=== PATIENT | male | born 1960 | race African-American/Black ===

== ENCOUNTER 2018-09-08 20:46 | Emergency (ER) | payer SELFPAY ==
--- NOTE | 2018-09-08 21:02 | EDM.PDOC ---
ED HPI GENERAL MEDICAL PROBLEM - General Chief Complaint: Respiratory Problem Stated Complaint: PT HAS ASTHMA Time Seen by Provider: 09/08/18 20:49 - History of Present Illness INITIAL COMMENTS - FREE TEXT/NARRATIVE: HISTORY AND PHYSICAL: History of present illness: Patient's a 57-year-old black male history of asthma presents with concern of medication refill he has an albuterol nebulizer that he uses at home and he does have a Pro Air HFA which he has dangerously low on. He denies any active breathing difficulty or other concern. Review of systems: As per history of present illness and below otherwise all systems reviewed and negative. Past medical history: As per history of present illness and as reviewed below otherwise noncontributory. Surgical history: As per history of present illness and as reviewed below otherwise noncontributory. Social history: No reported history of drug or alcohol abuse. Family history: As per history of present illness and as reviewed below otherwise noncontributory. Physical exam: HEENT: Atraumatic, normocephalic, pupils reactive, negative for conjunctival pallor or scleral icterus, mucous membranes moist, throat clear, neck supple, nontender, trachea midline. Lungs: Clear to auscultation, breath sounds equal bilaterally, chest nontender. Heart: S1S2, regular, negative for clicks, rubs, or JVD. Abdomen: Soft, nondistended, nontender. Negative for masses or hepatosplenomegaly. Negative for costovertebral tenderness. Pelvis: Stable nontender. Genitourinary: Deferred. Rectal: Deferred. Extremities: Atraumatic, negative for cords or calf pain. Neurovascular unremarkable. Neuro: Awake, alert, oriented. Cranial nerves II through XII unremarkable. Cerebellum unremarkable. Motor and sensory unremarkable throughout. Exam nonfocal. Diagnostics: None Therapeutics: None Impression: #1 medication refill #2 history of asthma Definitive disposition and diagnosis as appropriate pending reevaluation and review of above. - Related Data Allergies Allergy/AdvReac Type Severity Reaction Status Date / Time No Known Allergies Allergy Verified 09/08/18 20:59 Home Meds: Home Meds Albuterol Sulfate [Proair Hfa] 8.5 gm IH Q4HR PRN #1 hfa.[email or web address] 05/29/18 [Rx] Albuterol Sulfate 2.5 mg INH Q4H PRN 08/18/18 [History] Albuterol Sulfate [Proair Hfa] 8.5 gm IH QID PRN #1 hfa.[email or web address] 08/18/18 [Rx] Ipratropium/Albuterol Sulfate [Iprat-Albut 0.5-3(2.5) MG/3 ML] 3 ml IH QID PRN # 1 box 08/18/18 [Rx] Past Medical History Respiratory History: Reports: Asthma, COPD - Infectious Disease History Infectious Disease History: Reports: None - Past Surgical History Respiratory Surgical History: Reports: None Social & Family History - Family History Family Medical History: Noncontributory ED ROS GENERAL - Review of Systems Review Of Systems: ROS reveals no pertinent complaints other than HPI. ED EXAM, GENERAL - Physical Exam Exam: See Below (See dictation) Course - Vital Signs Last Recorded V/S: Last Vital Signs Temp 36.6 C 09/08/18 20:55 Pulse 94 09/08/18 20:55 Resp 18 09/08/18 20:55 BP 142/92 H 09/08/18 20:55 Pulse Ox 96 09/08/18 20:55 Departure - Departure Time of Disposition: 21:01 Disposition: Home, Self-Care 01 Condition: Good Clinical Impression: Medication refill, History of asthma - Discharge Information Referrals: PCP,None [Primary Care Provider] - Additional Instructions: The following information is given to patients seen in the emergency department who are being discharged to home. This information is to outline your options for follow-up care. We provide all patients seen in our emergency department with a follow-up referral. The need for follow-up, as well as the timing and circumstances, are variable depending upon the specifics of your emergency department visit. If you don't have a primary care physician on staff, we will provide you with a referral. We always advise you to contact your personal physician following an emergency department visit to inform them of the circumstance of the visit and for follow-up with them and/or the need for any referrals to a consulting specialist. The emergency department will also refer you to a specialist when appropriate. This referral assures that you have the opportunity for followup care with a specialist. All of these measure are taken in an effort to provide you with optimal care, which includes your followup. Under all circumstances we always encourage you to contact your private physician who remains a resource for coordinating your care. When calling for followup care, please make the office aware that this follow-up is from your recent emergency room visit. If for any reason you are refused follow-up, please contact the [facility] emergency department at and asked to speak to the emergency department charge nurse. Medications as prescribed follow-up private medical doctor as discussed and return as needed as discussed
== END 2018-09-08 21:10 | disposition home or self-care (01) ==
LOC: MW.ED 20:46
DX: Z76.0 Encounter for issue of repeat prescription (principal); J44.9 Chronic obstructive pulmonary disease, unspecified; F17.210 Nicotine dependence, cigarettes, uncomplicated; Z79.899 Other long term (current) drug therapy
CPT/HCPCS: 99281

== ENCOUNTER 2018-09-12 23:28 | Emergency (ER) | payer SELFPAY ==
--- NOTE | 2018-09-12 23:35 | EDM.PDOC ---
ED HPI GENERAL MEDICAL PROBLEM - General Stated Complaint: ASTHMA Time Seen by Provider: 09/12/18 23:33 - History of Present Illness INITIAL COMMENTS - FREE TEXT/NARRATIVE: HISTORY AND PHYSICAL: History of present illness: Patient's 57-year-old black male history of asthma who presents with concern of medication refill he denies any other concern he was seen recently for same and states he lost his inhaler. Review of systems: As per history of present illness and below otherwise all systems reviewed and negative. Past medical history: As per history of present illness and as reviewed below otherwise noncontributory. Surgical history: As per history of present illness and as reviewed below otherwise noncontributory. Social history: No reported history of drug or alcohol abuse. Family history: As per history of present illness and as reviewed below otherwise noncontributory. Physical exam: HEENT: Atraumatic, normocephalic, pupils reactive, negative for conjunctival pallor or scleral icterus, mucous membranes moist, throat clear, neck supple, nontender, trachea midline. Lungs: Clear to auscultation, breath sounds equal bilaterally, chest nontender. Heart: S1S2, regular, negative for clicks, rubs, or JVD. Abdomen: Soft, nondistended, nontender. Negative for masses or hepatosplenomegaly. Negative for costovertebral tenderness. Pelvis: Stable nontender. Genitourinary: Deferred. Rectal: Deferred. Extremities: Atraumatic, negative for cords or calf pain. Neurovascular unremarkable. Neuro: Awake, alert, oriented. Cranial nerves II through XII unremarkable. Cerebellum unremarkable. Motor and sensory unremarkable throughout. Exam nonfocal. Diagnostics: None Therapeutics: None Impression: #1 medication refill #2 history of asthma Definitive disposition and diagnosis as appropriate pending reevaluation and review of above. - Related Data Allergies Allergy/AdvReac Type Severity Reaction Status Date / Time No Known Allergies Allergy Verified 09/08/18 20:59 Home Meds: Home Meds Albuterol Sulfate [Proair Hfa] 8.5 gm IH QID PRN #1 hfa.aer.ad 08/18/18 [Rx] Past Medical History HEENT History: Reports: None Cardiovascular History: Reports: None Respiratory History: Reports: Asthma, COPD Gastrointestinal History: Reports: None Genitourinary History: Reports: None Musculoskeletal History: Reports: None Neurological History: Reports: None Psychiatric History: Reports: None Endocrine/Metabolic History: Reports: None Hematologic History: Reports: None Immunologic History: Reports: None Oncologic (Cancer) History: Reports: None Dermatologic History: Reports: None - Infectious Disease History Infectious Disease History: Reports: None - Past Surgical History Head Surgeries/Procedures: Reports: None Respiratory Surgical History: Reports: None Social & Family History - Family History Family Medical History: Noncontributory - Caffeine Use Caffeine Use: Reports: Tea ED ROS GENERAL - Review of Systems Review Of Systems: ROS reveals no pertinent complaints other than HPI. ED EXAM, GENERAL - Physical Exam Exam: See Below (See dictation) Departure - Departure Time of Disposition: 23:34 Disposition: Home, Self-Care 01 Condition: Good Clinical Impression: Medication refill - Discharge Information Referrals: PCP,None [Primary Care Provider] - Additional Instructions: The following information is given to patients seen in the emergency department who are being discharged to home. This information is to outline your options for follow-up care. We provide all patients seen in our emergency department with a follow-up referral. The need for follow-up, as well as the timing and circumstances, are variable depending upon the specifics of your emergency department visit. If you don't have a primary care physician on staff, we will provide you with a referral. We always advise you to contact your personal physician following an emergency department visit to inform them of the circumstance of the visit and for follow-up with them and/or the need for any referrals to a consulting specialist. The emergency department will also refer you to a specialist when appropriate. This referral assures that you have the opportunity for followup care with a specialist. All of these measure are taken in an effort to provide you with optimal care, which includes your followup. Under all circumstances we always encourage you to contact your private physician who remains a resource for coordinating your care. When calling for followup care, please make the office aware that this follow-up is from your recent emergency room visit. If for any reason you are refused follow-up, please contact the [facility] emergency department at and asked to speak to the emergency department charge nurse. [facility] [address] [place] [id number] Albuterol as prescribed follow-up private medical doctor in our clinic above as needed as discussed return as needed as discussed
== END 2018-09-12 23:43 | disposition home or self-care (01) ==
LOC: MW.ED 23:28
DX: Z76.0 Encounter for issue of repeat prescription (principal); F17.210 Nicotine dependence, cigarettes, uncomplicated; J44.9 Chronic obstructive pulmonary disease, unspecified
CPT/HCPCS: 99281

== ENCOUNTER 2018-10-23 20:19 | Emergency (ER) | payer SELFPAY ==
[2018-10-23] MEDS ORDERED: methylPREDNISolone Sodium Succinate 125 MG/2 ML SDV IM ONE (20:52)
[2018-10-23] MEDS ORDERED: Albuterol/Ipratropium 3.0-0.5 MG/3 ML Neb Soln NEB ONE (20:52)
--- NOTE | 2018-10-23 20:52 | EDM.PDOC ---
ED HPI GENERAL MEDICAL PROBLEM - General Chief Complaint: Respiratory Problem Stated Complaint: HAD HARD TIME BREATHING NEEDING NEW SCRIPT Time Seen by Provider: 10/23/18 20:52 Source of Information: Reports: Patient - History of Present Illness INITIAL COMMENTS - FREE TEXT/NARRATIVE: HISTORY AND PHYSICAL: History of present illness: [Patient presents with history of [place] weather he has used his MDI inhaler up a complains of shortness of breath is in no distress able speak in full sentences it did offer EKG chest x-ray influenza swab etc. and Solu-Medrol he refuses these as well as refuses a neb treatment he simply wants medications for at home Has no fever nausea vomiting chills sweats ] Review of systems: As per history of present illness and below otherwise all systems reviewed and negative. Past medical history: As per history of present illness and as reviewed below otherwise noncontributory. Surgical history: As per history of present illness and as reviewed below otherwise noncontributory. Social history: No reported history of drug or alcohol abuse. Family history: As per history of present illness and as reviewed below otherwise noncontributory. Physical exam: HEENT: Atraumatic, normocephalic, pupils reactive, negative for conjunctival pallor or scleral icterus, mucous membranes moist, throat clear, neck supple, nontender, trachea midline. Lungs: Clear to auscultation, breath sounds equal bilaterally, chest nontender. Heart: S1S2, regular, negative for clicks, rubs, or JVD. Abdomen: Soft, nondistended, nontender. Negative for masses or hepatosplenomegaly. Negative for costovertebral tenderness. Pelvis: Stable nontender. Genitourinary: Deferred. Rectal: Deferred. Extremities: Atraumatic, negative for cords or calf pain. Neurovascular unremarkable. Neuro: Awake, alert, oriented. Cranial nerves II through XII unremarkable. Cerebellum unremarkable. Motor and sensory unremarkable throughout. Exam nonfocal. Diagnostics: [EKG Chest 1 view Influenza ] Therapeutics: [DuoNeb Solu-Medrol 125 mg IM Above refused by patient Albuterol nebulizer treatments and inhaler per [facility] med[facility] ] Impression: asthma exacerbation ] Definitive disposition and diagnosis as appropriate pending reevaluation and review of above. - Related Data Allergies Allergy/AdvReac Type Severity Reaction Status Date / Time No Known Allergies Allergy Verified 10/23/18 20:31 Home Meds: Home Meds Albuterol Sulfate [Proair Hfa] 8.5 gm IH QID PRN #1 hfa.aer.ad 08/18/18 [Rx] Past Medical History HEENT History: Reports: None Cardiovascular History: Reports: None Respiratory History: Reports: Asthma, COPD Gastrointestinal History: Reports: None Genitourinary History: Reports: None Musculoskeletal History: Reports: None Neurological History: Reports: None Psychiatric History: Reports: None Endocrine/Metabolic History: Reports: None Hematologic History: Reports: None Immunologic History: Reports: None Oncologic (Cancer) History: Reports: None Dermatologic History: Reports: None - Infectious Disease History Infectious Disease History: Reports: None - Past Surgical History Head Surgeries/Procedures: Reports: None Respiratory Surgical History: Reports: None Social & Family History - Family History Family Medical History: Noncontributory - Tobacco Use Smoking Status *Q: Current Every Day Smoker Years of Tobacco use: 20 Packs/Tins Daily: 0.5 - Caffeine Use Caffeine Use: Reports: None - Recreational Drug Use Recreational Drug Use: No ED ROS GENERAL - Review of Systems Review Of Systems: See Below ED EXAM, GENERAL - Physical Exam Exam: See Below Course - Vital Signs Last Recorded V/S: Last Vital Signs Temp 98.0 F 10/23/18 20:33 Pulse 95 10/23/18 20:33 Resp 16 10/23/18 20:33 BP 125/83 10/23/18 20:33 Pulse Ox 95 10/23/18 20:33 - Orders/Labs/Meds Orders: Active Orders 24 hr Category Date Time Status EKG Documentation Completion [RC] STAT Care 10/23/18 20:52 Inactive RT Aerosol Therapy [RC] ASDIRECTED Care 10/23/18 20:52 Active Chest 1V Frontal [CR] Stat Exams 10/23/18 20:52 Stop Req INFLUENZA A+B AG SCREEN [RM] Stat Lab 10/23/18 20:52 Stop Req Meds: Medications Discontinued Medications Generic Name Dose Route Start Last Admin Trade Name Freq PRN Reason Stop Dose Admin Albuterol/Ipratropium 3 ml 10/23/18 20:52 Duoneb 3.0-0.5 Mg/3 Ml NEB 10/23/18 20:53 ONETIME ONE Methylprednisolone Sodium Succinate 125 mg 10/23/18 20:52 Solu-Medrol IM 10/23/18 20:53 ONETIME ONE Departure - Departure Time of Disposition: 21:04 Disposition: Home, Self-Care 01 Condition: Good Clinical Impression: Asthma exacerbation - Discharge Information Referrals: PCP,Not In Area [Primary Care Provider] - Forms: ED Department Discharge Additional Instructions: The following information is given to patients seen in the emergency department who are being discharged to home. This information is to outline your options for follow-up care. We provide all patients seen in our emergency department with a follow-up referral. The need for follow-up, as well as the timing and circumstances, are variable depending upon the specifics of your emergency department visit. If you don't have a primary care physician on staff, we will provide you with a referral. We always advise you to contact your personal physician following an emergency department visit to inform them of the circumstance of the visit and for follow-up with them and/or the need for any referrals to a consulting specialist. The emergency department will also refer you to a specialist when appropriate. This referral assures that you have the opportunity for follow-up care with a specialist. All of these measure are taken in an effort to provide you with optimal care, which includes your follow-up. Under all circumstances we always encourage you to contact your private physician who remains a resource for coordinating your care. When calling for follow-up care, please make the office aware that this follow-up is from your recent emergency room visit. If for any reason you are refused follow-up, please contact the [facility] emergency department at and asked to speak to the emergency department charge nurse. - My Orders Last 24 Hours: My Active Orders 10/23/18 20:52 EKG Documentation Completion [RC] STAT RT Aerosol Therapy [RC] ASDIRECTED Chest 1V Frontal [CR] Stat INFLUENZA A+B AG SCREEN [RM] Stat - Assessment/Plan Last 24 Hours: My Active Orders 10/23/18 20:52 EKG Documentation Completion [RC] STAT RT Aerosol Therapy [RC] ASDIRECTED Chest 1V Frontal [CR] Stat INFLUENZA A+B AG SCREEN [RM] Stat
== END 2018-10-23 21:15 | disposition home or self-care (01) ==
LOC: MW.ED 20:19
DX: J45.901 Unspecified asthma with (acute) exacerbation (principal); J44.9 Chronic obstructive pulmonary disease, unspecified; F17.210 Nicotine dependence, cigarettes, uncomplicated
CPT/HCPCS: 99281; 99283

== ENCOUNTER 2020-02-12 13:04 | Emergency (ER) | payer SELFPAY ==
[2020-02-12] MEDS ORDERED: Albuterol/Ipratropium 3.0-0.5 MG/3 ML Neb Soln NEB ONE (13:16)
[2020-02-12] MEDS ORDERED: Sodium Chloride 0.9% 2.5 ML Syringe FLUSH PRN (13:16)
[2020-02-12] MEDS ORDERED: Sodium Chloride 0.9% 10 ML Syringe FLUSH PRN (13:16)
[2020-02-12] MEDS ORDERED: predniSONE 20 MG Tab PO ONE (13:32)
--- NOTE | 2020-02-12 13:42 | EDM.PDOC ---
ED HPI GENERAL MEDICAL PROBLEM - General Chief Complaint: Chest Pain Stated Complaint: ASTHMA/SOB Time Seen by Provider: 02/12/20 13:08 Source of Information: Reports: Patient History Limitations: Reports: No Limitations - History of Present Illness INITIAL COMMENTS - FREE TEXT/NARRATIVE: 59-year-old male past medical history of COPD, asthma, presenting with chest discomfort and shortness of breath. He reports a one-week history of dyspnea and intermittent left-sided chest pain described as "sharp". 3-day history of swelling to the right anterolateral thigh. Chest pain recurred this afternoon, which prompted him to come to the ER. Chest discomfort subsided while he was checking into triage. He does complain of persistent shortness of breath. Used his albuterol inhaler twice prior to arrival without relief. Currently taking low-dose prednisone, 2 mg daily. Denies any history of VTE, hemoptysis, fever, malignancy, recent travel or immobilization or surgery. No prior history of myocardial infarction, CAD, or stroke. Left Face/Facial Pain Score (Numeric/FACES): 10 - Related Data Allergies Allergy/AdvReac Type Severity Reaction Status Date / Time No Known Allergies Allergy Verified 02/12/20 13:16 Home Meds: Home Meds Albuterol Sulfate [Proair Hfa] 8.5 gm IH QID PRN #1 hfa.aer.[id number] 08/18/18 [Rx] Albuterol Sulfate 1 dose INH TID PRN 02/12/20 [History] Albuterol Sulfate [Albuterol Sulfate Hfa] 1 - 2 puff IH Q4H PRN #1 inhaler 02/12/20 [Rx] Ipratropium [Atrovent] 0.5 mg .XX Q6H PRN #10 box 02/12/20 [Rx] Miscellaneous Medical Supply [DME for Prescription] 1 each .XX ASDIRECTED #1 each 02/12/20 [Rx] predniSONE 1 tab PO DAILY 02/12/20 [History] predniSONE [Prednisone] 60 mg PO DAILY 4 Days #12 tablet 02/12/20 [Rx] tadalafiL [Cialis] 1 tab PO ASDIRECTED 02/12/20 [History] Past Medical History HEENT History: Reports: None Cardiovascular History: Reports: None Respiratory History: Reports: Asthma, COPD Gastrointestinal History: Reports: None Genitourinary History: Reports: None Musculoskeletal History: Reports: None Neurological History: Reports: None Psychiatric History: Reports: None Endocrine/Metabolic History: Reports: None Hematologic History: Reports: None Immunologic History: Reports: None Oncologic (Cancer) History: Reports: None Dermatologic History: Reports: None - Infectious Disease History Infectious Disease History: Reports: None - Past Surgical History Head Surgeries/Procedures: Reports: None HEENT Surgical History: Reports: None Cardiovascular Surgical History: Reports: None Respiratory Surgical History: Reports: None GI Surgical History: Reports: None Male Surgical History: Reports: None Endocrine Surgical History: Reports: None Neurological Surgical History: Reports: None Musculoskeletal Surgical History: Reports: None Oncologic Surgical History: Reports: None Dermatological Surgical History: Reports: None Social & Family History - Family History Family Medical History: Noncontributory - Tobacco Use Smoking Status *Q: Current Every Day Smoker Years of Tobacco use: 20 Packs/Tins Daily: 1 - Caffeine Use Caffeine Use: Reports: Energy Drinks - Recreational Drug Use Recreational Drug Use: No ED ROS GENERAL - Review of Systems Review Of Systems: See Below Constitutional: Denies: Fever, Chills HEENT: Reports: No Symptoms Respiratory: Reports: Shortness of Breath, Wheezing, Pleuritic Chest Pain. Denies: Cough, Sputum, Hemoptysis Cardiovascular: Reports: Chest Pain Endocrine: Reports: No Symptoms GI/Abdominal: Denies: Abdominal Pain, Diarrhea, Nausea, Vomiting : Denies: Flank Pain Musculoskeletal: Denies: Back Pain Skin: Denies: Rash Neurological: Denies: Headache Psychiatric: Reports: No Symptoms Hematologic/Lymphatic: Reports: No Symptoms Immunologic: Reports: No Symptoms ED EXAM, GENERAL - Physical Exam Exam: See Below Free Text/Narrative:: Vital signs reviewed. Nursing notes reviewed. Constitutional: Awake, alert, non-distressed. Head: Normocephalic, atraumatic. Eyes: EOMI, conjunctiva normal, no discharge, no scleral icterus. Ears, Nose, Throat: External ears and nose normal, moist oral mucosa. Cardiovascular: Tachycardic, 2+ radial pulse, capillary refill less than 2 seconds. 1+ edema of the bilateral lower extremities. Pulmonary: Mildly tachypneic, soft expiratory wheezing, no accessory muscle use. Speaking in full sentences. Abdomen/GI: Soft, nontender, nondistended, no guarding or rigidity, no masses. Musculoskeletal: No deformities. Mild localized swelling noted to the anterolateral right thigh Integumentary: Appropriate color for ethnicity, warm, dry, no pallor or jaundice, no rash. Neurologic: Alert, answering questions appropriately, normal speech, no facial droop, moving all extremities well. Psychiatric: Appropriate mood and affect, normal thought process. EKG INTERPRETATION EKG Interpretation Comments: 12-Lead ECG Interpretation Acquired: 1:06 PM Rhythm: Sinus rhythm Rate: 95 bpm [place]: Normal Intervals: Left bundle branch block Ectopy: None Ischemic Changes: None apparent Left ventricular hypertrophy Interpretation: LVH, frequent unifocal PVCs, left ventricular strain pattern Course - Vital Signs Text/Narrative:: 59-year-old male with shortness of breath and chest discomfort and right thigh swelling. Patient tachycardic, mildly hypoxic, afebrile, looks nontoxic. Differential diagnosis includes but is not limited to: Pulmonary embolism, acute coronary syndrome, COPD exacerbation, asthma exacerbation, viral syndrome, pneumonia, pleural effusion, myocarditis, pericardial effusion, anemia, electrolyte disturbance, arrhythmia, and many others 1:50 PM: CBC reassuring. D-dimer negative. Venous blood gas shows a mild respiratory alkalosis. Awaiting chest x-ray, troponin, CMP, BNP, right lower extremity DVT ultrasound study. 2:39 PM: Right lower extremity DVT ultrasound negative. CBC and troponin are reassuring. Metabolic panel shows normal electrolytes. Mild ALT and AST elevations. BNP elevated at 2319. Awaiting chest x-ray read. 3:06 PM: Reviewed the manual printout of the chest x-ray from Dr. Amos, showed cardiomegaly but no other acute findings. Patient breathing better after nebulized treatments. Suspect asthma or COPD exacerbation, which seems to be mild. PE unlikely with negative d-dimer, sats improved after nebulizer treatment. No evidence of acute right ventricular strain on ECG. Troponin negative. No evidence of a pulmonary infiltrate, afebrile. No signs of viral illness. His BNP is elevated but he does not have crackles or diminished lung sounds and no evidence of pulmonary edema on chest x-rays, so I think a congestive heart failure episode is less likely. Patient stable to discharge home. I refilled his albuterol inhaler, prescribed an inhaler spacer, some inhaled ipratropium, and a few more days of oral prednisone. Will refer him to the family medicine clinic as he needs to establish primary care here in [place]. We did note that he has cardiomegaly on his chest x-ray, and elevated BNP, and signs of LVH on his twelve-lead EKG. He likely needs to have an echocardiogram. I counseled him about his elevated diastolic blood pressure and the need to follow-up with a primary medicine clinic for further evaluation (he has not been diagnosed with hypertension before). Plan: Patient is stable to discharge home with outpatient primary care follow- up. Strict emergency department return precautions were provided, patient indicated understanding. All questions were answered prior to departure. Discharged in good condition. Last Recorded V/S: Last Vital Signs Temp 36.8 C 02/12/20 14:49 Pulse 89 02/12/20 14:49 Resp 22 H 02/12/20 14:49 BP 134/105 H 02/12/20 14:49 Pulse Ox 93 L 02/12/20 14:49 - Orders/Labs/Meds Orders: Active Orders 24 hr Category Date Time Status Cardiac Monitoring [RC] . DIRECTED Care 02/12/20 13:16 Active Pulse Oximetry [RC] ASDIRECTED Care 02/12/20 13:16 Active Sodium Chloride 0.9% [Saline Flush] Med 02/12/20 13:16 Active 10 ml FLUSH ASDIRECTED PRN Sodium Chloride 0.9% [Saline Flush] Med 02/12/20 13:16 Active 2.5 ml FLUSH ASDIRECTED PRN Saline Lock Insert [OM.PC] Stat Oth 02/12/20 13:16 Ordered Medication Orders Sodium Chloride (Saline Flush) 10 ml FLUSH ASDIRECTED PRN PRN Reason: Keep Vein Open Last Admin: 02/12/20 13:31 Dose: 10 ml Documented by: KEY Sodium Chloride (Saline Flush) 2.5 ml FLUSH ASDIRECTED PRN PRN Reason: Keep Vein Open Last Admin: 02/12/20 13:31 Dose: 2.5 ml Documented by: KEY Labs: Laboratory Tests 02/12/20 02/12/20 02/12/20 Range/Units 13:15 13:15 13:15 WBC 4.78 (4.0-11.0) K/uL RBC 4.49 L (4.50-5.90) M/uL Hgb 14.1 (13.0-17.0) g/dL Hct 42.5 (38.0-50.0) % MCV 94.7 (80.0-98.0) fL MCH 31.4 (27.0-32.0) pg MCHC 33.2 (31.0-37.0) g/dL RDW Std Deviation 52.5 (28.0-62.0) fl RDW Coeff of Ch[place] 15 (11.0-15.0) % Plt Count 203 (150-400) K/uL MPV 11.00 (7.40-12.00) fL Neut % (Auto) 86.4 H (48.0-80.0) % Lymph % (Auto) 11.5 L (16.0-40.0) % [place] % (Auto) 1.5 (0.0-15.0) % Eos % (Auto) 0.4 (0.0-7.0) % Baso % (Auto) 0.2 (0.0-1.5) % Neut # (Auto) 4.1 (1.4-5.7) K/uL Lymph # (Auto) 0.6 (0.6-2.4) K/uL [place] # (Auto) 0.1 (0.0-0.8) K/uL Eos # (Auto) 0.0 (0.0-0.7) K/uL Baso # (Auto) 0.0 (0.0-0.1) K/uL Nucleated RBC % 0.0 /100WBC Nucleated RBCs # 0 K/uL D-Dimer, Quantitative 0.25 (0.0-0.50) mg/L FEU VBG pH 7.42 H (7.31-7.41) VBG pCO2 42 (35-45) mmHG VBG pO2 81 H (30-40) mmHG VBG HCO3 27 (22-30) mEq/L VBG Total CO2 24 L (41-51) mmol/L VBG Base Excess 2.0 (-3.0-3.0) Sodium (136-148) mmol/L Potassium (3.5-5.1) mmol/L Chloride (98-107) mmol/L Carbon Dioxide (21.0-32.0) mmol/L BUN (7.0-18.0) mg/dL Creatinine (0.8-1.3) mg/dL Est Cr Clr Drug Dosing mL/min Estimated GFR (MDRD) ml/min Glucose (74-106) mg/dL Calcium (8.5-10.1) mg/dL Total Bilirubin (0.2-1.0) mg/dL AST (15-37) IU/L ALT (14-63) IU/L Alkaline Phosphatase (46-116) U/L Troponin I (0.000-0.056) ng/mL B-Natriuretic Peptide (<100) PG/ML Total Protein (6.4-8.2) g/dL Albumin (3.4-5.0) g/dL Globulin (2.6-4.0) g/dL Albumin/Globulin Ratio (0.9-1.6) 02/12/20 02/12/20 Range/Units 13:15 13:15 WBC (4.0-11.0) K/uL RBC (4.50-5.90) M/uL Hgb (13.0-17.0) g/dL Hct (38.0-50.0) % MCV (80.0-98.0) fL MCH (27.0-32.0) pg MCHC (31.0-37.0) g/dL RDW Std Deviation (28.0-62.0) fl RDW Coeff of [place] (11.0-15.0) % Plt Count (150-400) K/uL MPV (7.40-12.00) fL Neut % (Auto) (48.0-80.0) % Lymph % (Auto) (16.0-40.0) % [place] % (Auto) (0.0-15.0) % Eos % (Auto) (0.0-7.0) % Baso % (Auto) (0.0-1.5) % Neut # (Auto) (1.4-5.7) K/uL Lymph # (Auto) (0.6-2.4) K/uL [place] # (Auto) (0.0-0.8) K/uL Eos # (Auto) (0.0-0.7) K/uL Baso # (Auto) (0.0-0.1) K/uL Nucleated RBC % /100WBC Nucleated RBCs # K/uL D-Dimer, Quantitative (0.0-0.50) mg/L FEU VBG pH (7.31-7.41) VBG pCO2 (35-45) mmHG VBG pO2 (30-40) mmHG VBG HCO3 (22-30) mEq/L VBG Total CO2 (41-51) mmol/L VBG Base Excess (-3.0-3.0) Sodium 138 (136-148) mmol/L Potassium 5.0 (3.5-5.1) mmol/L Chloride 104 (98-107) mmol/L Carbon Dioxide 26.6 (21.0-32.0) mmol/L BUN 21 H (7.0-18.0) mg/dL Creatinine 1.2 (0.8-1.3) mg/dL Est Cr Clr Drug Dosing 68.85 mL/min Estimated GFR (MDRD) > 60.0 ml/min Glucose 140 H (74-106) mg/dL Calcium 8.2 L (8.5-10.1) mg/dL Total Bilirubin 0.3 (0.2-1.0) mg/dL AST 58 H (15-37) IU/L ALT 178 H (14-63) IU/L Alkaline Phosphatase 71 (46-116) U/L Troponin I < 0.050 (0.000-0.056) ng/mL B-Natriuretic Peptide 2319 H (<100) PG/ML Total Protein 6.3 L (6.4-8.2) g/dL Albumin 3.4 (3.4-5.0) g/dL Globulin 2.9 (2.6-4.0) g/dL Albumin/Globulin Ratio 1.2 (0.9-1.6) Meds: Medications Generic Name Dose Route Start Last Admin Trade Name Freq PRN Reason Stop Dose Admin Sodium Chloride 10 ml 02/12/20 13:16 02/12/20 13:31 Saline Flush FLUSH 10 ml ASDIRECTED PRN Administration Keep Vein Open Sodium Chloride 2.5 ml 02/12/20 13:16 02/12/20 13:31 Saline Flush FLUSH 2.5 ml ASDIRECTED PRN Administration Keep Vein Open Discontinued Medications Generic Name Dose Route Start Last Admin Trade Name Freq PRN Reason Stop Dose Admin Albuterol/Ipratropium 6 ml 02/12/20 13:16 02/12/20 13:30 Duoneb 3.0-0.5 Mg/3 Ml NEB 02/12/20 13:17 6 ml ONETIME ONE Administration Prednisone 60 mg 02/12/20 13:32 02/12/20 13:55 Prednisone PO 02/12/20 13:33 60 mg ONETIME ONE Administration Departure - Departure Time of Disposition: 15:08 Disposition: Home, Self-Care 01 Condition: Good Clinical Impression: Asthma exacerbation with COPD (chronic obstructive pulmonary disease), Elevated blood pressure reading, Cardiomegaly - Discharge Information *PRESCRIPTION DRUG MONITORING PROGRAM REVIEWED*: Not Applicable *COPY OF PRESCRIPTION DRUG MONITORING REPORT IN PATIENT DESTINY: Not Applicable Prescriptions: Albuterol Sulfate [Albuterol Sulfate Hfa] 1 - 2 puff IH Q4H PRN #1 inhaler PRN Reason: Wheezing Ipratropium [Atrovent] 0.5 mg .XX Q6H PRN #10 box PRN Reason: Wheezing Miscellaneous Medical Supply [DME for Prescription] 1 each .XX ASDIRECTED #1 each predniSONE [Prednisone] 60 mg PO DAILY 4 Days #12 tablet Instructions: Chronic Obstructive Pulmonary Disease, [id number], Asthma, Adult, [id number], Hypertension, Adult Referrals: [facility] - Family Practice [Provider Group] - 1 Week (For follow-up care.) Forms: ED Department Discharge Additional Instructions: Thank you for choosing the [facility] emergency department in [place] for your medical needs today. It was a pleasure caring for you. You were seen in the emergency department for shortness of breath. I believe you had a mild asthma or COPD exacerbation. You were given breathing treatments and steroids. There is no sign of a blood clot or pneumonia. I think that you have undiagnosed high blood pressure. I would like for you to follow-up with the family medicine clinic here in [place] in about the next 5 to 7 days. You need to have your blood pressure rechecked and you may need to be started on medications to bring down your blood pressure long-term. I prescribed some inhaled medications for your asthma and COPD and a few more days of steroids. You should come back to the ER if you feel like your breathing is getting worse, if you have chest pain, or if you are using her inhaled medications more than once every 2 hours. Please return the emergency department immediately if your symptoms worsen or if you feel worse. The following information is given to patients seen in the emergency department who are being discharged. This information is to outline your options for follow-up care. We provide all patients seen in our emergency department with a follow-up referral. The need for follow-up, as well as the timing and circumstances, are variable depending upon the specifics of your emergency department visit. If you don't have a primary care physician on staff, we will provide you with a referral. We always advise you to contact your personal physician following an emergency department visit to inform them of the circumstance of the visit and for follow-up with them and/or the need for any referrals to a consulting specialist. The emergency department will also refer you to a specialist when appropriate. This referral assures that you have the opportunity for follow-up care with a specialist. All of these measure are taken in an effort to provide you with optimal care, which includes your follow-up. Under all circumstances we always encourage you to contact your private physician who remains a resource for coordinating your care. When calling for follow-up care, please make the office aware that this follow-up is from your recent emergency room visit. If for any reason you are refused follow-up, please contact the [facility] Emergency Department at and asked to speak to the emergency department charge nurse. If you do not have a primary care physician that is caring for you, you can contact these clinics below to set up an appointment to establish care: [facility] - Primary [facility] [address] [place] [id number] [address] Sepsis Event Note (ED) - Evaluation Sepsis Screening Result: No Definite Risk - Focused Exam Vital Signs: Vital Signs Temp Pulse Resp BP Pulse Ox 02/12/20 14:49 36.8 C 89 22 H 134/105 H 93 L 02/12/20 13:14 36.3 C 108 H 20 146/109 H 94 L - My Orders Last 24 Hours: My Active Orders 02/12/20 13:16 Cardiac Monitoring [RC] . DIRECTED Pulse Oximetry [RC] ASDIRECTED Sodium Chloride 0.9% [Saline Flush] 10 ml FLUSH ASDIRECTED PRN Sodium Chloride 0.9% [Saline Flush] 2.5 ml FLUSH ASDIRECTED PRN Saline Lock Insert [OM.PC] Stat - Assessment/Plan Last 24 Hours: My Active Orders 02/12/20 13:16 Cardiac Monitoring [RC] . DIRECTED Pulse Oximetry [RC] ASDIRECTED Sodium Chloride 0.9% [Saline Flush] 10 ml FLUSH ASDIRECTED PRN Sodium Chloride 0.9% [Saline Flush] 2.5 ml FLUSH ASDIRECTED PRN Saline Lock Insert [OM.PC] Stat
[2020-02-12 14:02] LABS: BLOOD UREA NITROGEN,BUN 21 mg/dL (7.0-18.0); CARBON DIOXIDE,CO2 26.6 mmol/L (21.0-32.0); CHLORIDE,CL 104 mmol/L (98-107); GLUCOSE RANDOM 140 mg/dL (74-106); SODIUM,NA 138 mmol/L (136-148)
--- NOTE | 2020-02-12 14:35 | US ---
Right lower extremity deep venous ultrasound: Duplex and color Doppler evaluation was obtained of the right common femoral, superficial femoral, popliteal, posterior tibial and anterior tibial veins. Normal compression and augmentation is seen. Impression: 1. No evidence of deep venous thrombosis within the right lower extremity. Diagnostic code #1 This report was dictated in MDT
--- NOTE | 2020-02-12 15:04 | CR ---
Chest: Portable view of the chest was obtained. Comparison: No previous chest imaging is available. Heart is enlarged. Upper mediastinum is normal. Lungs are clear with no acute parenchymal change. Bony structures are grossly intact. Impression: 1. Cardiomegaly. 2. Nothing acute is otherwise seen. Diagnostic code #2 This report was dictated in MDT
== END 2020-02-12 15:25 | disposition home or self-care (01) ==
LOC: MW.ED 13:04
DX: J44.1 Chronic obstructive pulmonary disease with (acute) exacerbation (principal); R03.0 Elevated blood-pressure reading, without diagnosis of hypertension; I51.7 Cardiomegaly; I44.7 Left bundle-branch block, unspecified; F17.210 Nicotine dependence, cigarettes, uncomplicated; Z79.899 Other long term (current) drug therapy
CPT/HCPCS: 71045; 80053; 82803; 83880; 84484; 85025; 85379; 93005; 93971; 94640; 99285; A9270; 99284; J7620-GY

== ENCOUNTER 2020-03-15 11:36 | Emergency (ER) | payer SELFPAY ==
[2020-03-15] MEDS ORDERED: Albuterol/Ipratropium 3.0-0.5 MG/3 ML Neb Soln NEB ONE (11:50)
[2020-03-15] MEDS ORDERED: Sodium Chloride 0.9% 10 ML Syringe FLUSH PRN (11:50)
[2020-03-15] MEDS ORDERED: Sodium Chloride 0.9% 2.5 ML Syringe FLUSH PRN (11:50)
[2020-03-15] MEDS ORDERED: Alum Hydrox/Mag Hydrox/Simeth 15 ML, Lidocaine 2% 5 ML PO ONE ×2 (11:50)
[2020-03-15] MEDS ORDERED: methylPREDNISolone Sodium Succinate 125 MG/2 ML SDV IVPUSH ONE (11:50)
--- NOTE | 2020-03-15 11:50 | EDM.PDOC ---
ED HPI GENERAL MEDICAL PROBLEM - General Chief Complaint: Medication Administration Stated Complaint: INHALER REFILL Time Seen by Provider: 03/15/20 11:37 Source of Information: Reports: Patient History Limitations: Reports: No Limitations - History of Present Illness INITIAL COMMENTS - FREE TEXT/NARRATIVE: 59-year-old male with history of asthma presents with asthma exacerbation and abdominal pain. He ran out of his albuterol inhaler and started feeling short of breath yesterday. He also notes epigastric nonradiating dull aching discomfort since yesterday. He denies fever, chills, chest pain, nausea, vomiting, diarrhea, dysuria. He admits to snorting 3 lines of cocaine 4 days ago. Denies HTN, DM, HLD. 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 ROS: A 10-point review of systems, other than pertinent positives and negatives as stated per HPI, is otherwise negative Past medical history: No additional pertinent history Past Surgical history: No additional pertinent history Social history: No additional pertinent history Family history: No additional pertinent history PHYSICAL EXAM General: AOx4, GCS = 15, No distress HEENT: dry mucous membrane Neck: supple, no meningismus, no Kernig or Brudzinski Cardiac: S1S2 RRR Respiratory: Diminished breath sounds bilaterally with expiratory wheezing Abdomen: Soft, no palpable hernia, nontender, no rebound or guarding, nondistended, no pulsatile mass. Back: nontender Musculoskeletal: NVI distally, no deformity Neuro: No focal deficits, CN 2 - 12 WNL. - Related Data Allergies Allergy/AdvReac Type Severity Reaction Status Date / Time No Known Allergies Allergy Verified 02/12/20 13:16 Home Meds: Home Meds Albuterol Sulfate [Proair Hfa] 8.5 gm IH QID PRN #1 hfa.aer.ad 08/18/18 [Rx] Albuterol Sulfate [Albuterol Sulfate Hfa] 8.5 gm IH Q4HR PRN #1 hfa.aer.ad 03/15/20 [Rx] Aspirin 81 mg PO DAILY #30 tab.chew 03/15/20 [Rx] Past Medical History HEENT History: Reports: None Cardiovascular History: Reports: None Respiratory History: Reports: Asthma, COPD Gastrointestinal History: Reports: None Genitourinary History: Reports: None Musculoskeletal History: Reports: None Neurological History: Reports: None Psychiatric History: Reports: None Endocrine/Metabolic History: Reports: None Hematologic History: Reports: None Immunologic History: Reports: None Oncologic (Cancer) History: Reports: None Dermatologic History: Reports: None - Infectious Disease History Infectious Disease History: Reports: None - Past Surgical History Head Surgeries/Procedures: Reports: None HEENT Surgical History: Reports: None Cardiovascular Surgical History: Reports: None Respiratory Surgical History: Reports: None GI Surgical History: Reports: None Male Surgical History: Reports: None Endocrine Surgical History: Reports: None Neurological Surgical History: Reports: None Musculoskeletal Surgical History: Reports: None Oncologic Surgical History: Reports: None Dermatological Surgical History: Reports: None Social & Family History - Family History Family Medical History: Noncontributory - Caffeine Use Caffeine Use: Reports: Energy Drinks ED ROS GENERAL - Review of Systems Review Of Systems: Comprehensive ROS is negative, except as noted in HPI. ED EXAM, GENERAL - Physical Exam Exam: Not Obtained (see dictation) EKG INTERPRETATION EKG Interpretation Comments: 94 Bpm, NSR, LBBB, normal QRS interval, no STEMI. EKG and rhythm strip interpreted by me at 1233. Scarbossa negative. Course - Vital Signs Last Recorded V/S: Last Vital Signs Temp 97.5 F 03/15/20 13:22 Pulse 95 03/15/20 13:22 Resp 16 03/15/20 13:22 BP 126/93 H 03/15/20 13:22 Pulse Ox 95 03/15/20 13:22 - Orders/Labs/Meds Orders: Active Orders 24 hr Category Date Time Status EKG Documentation Completion [RC] STAT Care 03/15/20 11:51 Active PTT,PARTIAL THROMBOPLSTIN TIME [COAG] Q6H Lab 03/15/20 20:00 Ordered PTT,PARTIAL THROMBOPLSTIN TIME [COAG] Q6H Lab 03/16/20 02:00 Ordered PTT,PARTIAL THROMBOPLSTIN TIME [COAG] Q6H Lab 03/16/20 08:00 Ordered PTT,PARTIAL THROMBOPLSTIN TIME [COAG] Q6H Lab 03/16/20 14:00 Ordered PTT,PARTIAL THROMBOPLSTIN TIME [COAG] Q6H Lab 03/16/20 20:00 Ordered PTT,PARTIAL THROMBOPLSTIN TIME [COAG] Q6H Lab 03/17/20 02:00 Ordered Sodium Chloride 0.9% [Saline Flush] Med 03/15/20 11:50 Active 10 ml FLUSH ASDIRECTED PRN Sodium Chloride 0.9% [Saline Flush] Med 03/15/20 11:50 Active 2.5 ml FLUSH ASDIRECTED PRN Saline Lock Insert [OM.PC] Stat Oth 03/15/20 11:50 Ordered Medication Orders Sodium Chloride (Saline Flush) 10 ml FLUSH ASDIRECTED PRN PRN Reason: Keep Vein Open Sodium Chloride (Saline Flush) 2.5 ml FLUSH ASDIRECTED PRN PRN Reason: Keep Vein Open Labs: Laboratory Tests 03/15/20 03/15/20 03/15/20 Range/Units 12:00 12:00 12:00 WBC 7.72 (4.0-11.0) K/uL RBC 4.50 (4.50-5.90) M/uL Hgb 14.0 (13.0-17.0) g/dL Hct 41.7 (38.0-50.0) % MCV 92.7 (80.0-98.0) fL MCH 31.1 (27.0-32.0) pg MCHC 33.6 (31.0-37.0) g/dL RDW Std Deviation 54.1 (28.0-62.0) fl RDW Coeff of Chuy 16 H (11.0-15.0) % Plt Count 238 (150-400) K/uL MPV 10.70 (7.40-12.00) fL Neut % (Auto) 90.4 H (48.0-80.0) % Lymph % (Auto) 6.2 L (16.0-40.0) % [place] % (Auto) 3.2 (0.0-15.0) % Eos % (Auto) 0.1 (0.0-7.0) % Baso % (Auto) 0.1 (0.0-1.5) % Neut # (Auto) 7.0 H (1.4-5.7) K/uL Lymph # (Auto) 0.5 L (0.6-2.4) K/uL [place] # (Auto) 0.3 (0.0-0.8) K/uL Eos # (Auto) 0.0 (0.0-0.7) K/uL Baso # (Auto) 0.0 (0.0-0.1) K/uL Nucleated RBC % 0.0 /100WBC Nucleated RBCs # 0 K/uL INR APTT (18.6-31.3) SEC Lactate 1.6 (0.20-2.00) mmol/L Sodium 140 (136-148) mmol/L Potassium 4.0 (3.5-5.1) mmol/L Chloride 104 (98-107) mmol/L Carbon Dioxide 25.1 (21.0-32.0) mmol/L BUN 25 H (7.0-18.0) mg/dL Creatinine 1.3 (0.8-1.3) mg/dL Est Cr Clr Drug Dosing 63.55 mL/min Estimated GFR (MDRD) > 60.0 ml/min Glucose 117 H (74-106) mg/dL Calcium 8.1 L (8.5-10.1) mg/dL Total Bilirubin 0.3 (0.2-1.0) mg/dL AST 33 (15-37) IU/L ALT 70 H (14-63) IU/L Alkaline Phosphatase 55 (46-116) U/L Troponin I 0.067 H* (0.000-0.056) ng/mL Total Protein 6.4 (6.4-8.2) g/dL Albumin 3.2 L (3.4-5.0) g/dL Globulin 3.2 (2.6-4.0) g/dL Albumin/Globulin Ratio 1.0 (0.9-1.6) Lipase 80 (73-393) U/L 03/15/20 03/15/20 Range/Units 12:20 12:30 WBC (4.0-11.0) K/uL RBC (4.50-5.90) M/uL Hgb (13.0-17.0) g/dL Hct (38.0-50.0) % MCV (80.0-98.0) fL MCH (27.0-32.0) pg MCHC (31.0-37.0) g/dL RDW Std Deviation (28.0-62.0) fl RDW Coeff of Chuy (11.0-15.0) % Plt Count (150-400) K/uL MPV (7.40-12.00) fL Neut % (Auto) (48.0-80.0) % Lymph % (Auto) (16.0-40.0) % [place] % (Auto) (0.0-15.0) % Eos % (Auto) (0.0-7.0) % Baso % (Auto) (0.0-1.5) % Neut # (Auto) (1.4-5.7) K/uL Lymph # (Auto) (0.6-2.4) K/uL [place] # (Auto) (0.0-0.8) K/uL Eos # (Auto) (0.0-0.7) K/uL Baso # (Auto) (0.0-0.1) K/uL Nucleated RBC % /100WBC Nucleated RBCs # K/uL INR 1.04 APTT 23.8 (18.6-31.3) SEC Lactate (0.20-2.00) mmol/L Sodium (136-148) mmol/L Potassium (3.5-5.1) mmol/L Chloride (98-107) mmol/L Carbon Dioxide (21.0-32.0) mmol/L BUN (7.0-18.0) mg/dL Creatinine (0.8-1.3) mg/dL Est Cr Clr Drug Dosing mL/min Estimated GFR (MDRD) ml/min Glucose (74-106) mg/dL Calcium (8.5-10.1) mg/dL Total Bilirubin (0.2-1.0) mg/dL AST (15-37) IU/L ALT (14-63) IU/L Alkaline Phosphatase (46-116) U/L Troponin I (0.000-0.056) ng/mL Total Protein (6.4-8.2) g/dL Albumin (3.4-5.0) g/dL Globulin (2.6-4.0) g/dL Albumin/Globulin Ratio (0.9-1.6) Lipase (73-393) U/L Meds: Medications Generic Name Dose Route Start Last Admin Trade Name Halima PRN Reason Stop Dose Admin Sodium Chloride 10 ml 03/15/20 11:50 Saline Flush FLUSH ASDIRECTED PRN Keep Vein Open Sodium Chloride 2.5 ml 03/15/20 11:50 Saline Flush FLUSH ASDIRECTED PRN Keep Vein Open Discontinued Medications Generic Name Dose Route Start Last Admin Trade Name Halima PRN Reason Stop Dose Admin Albuterol/Ipratropium 3 ml 03/15/20 11:50 03/15/20 12:50 Duoneb 3.0-0.5 Mg/3 Ml NEB 03/15/20 11:51 3 ml ONETIME ONE Administration Aspirin 325 mg 03/15/20 13:20 03/15/20 14:08 Aspirin PO 03/15/20 13:21 325 mg ONETIME ONE Administration Al Hydroxide/Mg Hydroxide 15 0 ml 03/15/20 11:50 03/15/20 12:51 ml/ Lidocaine HCl 5 ml PO 03/15/20 11:51 1 each ONETIME ONE Administration Enoxaparin Sodium 82 mg 03/15/20 14:01 03/15/20 14:12 Lovenox SUBCUT 03/15/20 14:02 82 mg ONETIME ONE Administration Heparin Sodium (Porcine) 4,000 units 03/15/20 13:54 Heparin Sodium IVPUSH 03/15/20 13:55 .BOLUS ONE Protocol Heparin Sodium/Sodium Chloride 25,000 unit in 500 mls @ 19.608 mls/hr 03/15/20 13:45 Heparin-1/2ns 25,000 Units/500 IV TITRATE TONY Protocol 12 UNITS/KG/HR Methylprednisolone Sodium Succinate 125 mg 03/15/20 11:50 03/15/20 12:50 Solu-Medrol IVPUSH 03/15/20 11:51 125 mg ONETIME ONE Administration - Re-Assessments/Exams Free Text/Narrative Re-Assessment/Exam: 03/15/20 13:45 Ordered heparin bolus and drip, ASA 324 mg. Case discussed with [address] Huang at [facility], will accept transfer. 03/15/20 13:[address], he is declining transfer for further cardiac assessment. He insists that he will start doing cocaine. He is willing to sign out AGAINST MEDICAL ADVICE. 03/15/20 13:57 After a prolonged discussion with him, he still persists on declining transfer. I attempted to persuade him to stay here for conservative medical management, including heparin bolus and drip, he is still declining to be admitted. Patient is choosing to leave against medical advice. I personally explained to the patient that choosing to do so may result in permanent bodily harm or . I discussed at great length that without further evaluation and monitoring there may be unforeseen circumstances and deterioration causing permanent bodily harm or as a result of their choice. The patient is alert, oriented, and com petent at this time. The patient states that they are aware of the serious risks as explained, but they still choose to leave against medical advice. The patient is aware that they did not allow us to complete their evaluation, and there is still the possibility that an emergency condition could exist. This has been thoroughly explained to the patient and the patient has indicated your understanding of such. The patient is assuming all risk and liability for such a condition, or for such a condition subsequently developing. The patient is doing so at their own free will, with a full knowledge of the potential consequences of these actions. The patient was encouraged to return at any time should they experience any changes about evaluation, or should they develop any new or worsening symptoms that concerns them. 03/15/20 14:28 patient given IM Lovenox injection prior to discharge. He will be refilled for his albuterol. I instructed him not to snort cocaine anymore. Departure - Departure Time of Disposition: 14:37 Disposition: Against Medical Advice 07 Condition: Good Clinical Impression: Acute asthma, NSTEMI (non-ST elevated myocardial infarction), Encounter for medication refill, Left against medical advice, Cocaine abuse - Discharge Information *PRESCRIPTION DRUG MONITORING PROGRAM REVIEWED*: Not Applicable *COPY OF PRESCRIPTION DRUG MONITORING REPORT IN PATIENT DESTINY: Not Applicable Prescriptions: Albuterol Sulfate [Albuterol Sulfate Hfa] 8.5 gm IH Q4HR PRN #1 hfa.aer.ad PRN Reason: Shortness Of Breath Aspirin 81 mg PO DAILY #30 tab.chew Instructions: Heart Attack, [id number], Metered Dose Inhaler (No Spacer Used), Asthma, Adult, [id number] Referrals: Laurie Wheeler MD [Physician] - 3 Days Forms: ED Department Discharge Additional Instructions: You declined to be transferred to [facility] for further work-up of your NSTEMI. You are fully informed of the risk of declining transfer, including , worsening heart attack. I even offered you to stay at [facility] in this hospital for conservative medical management afterwards, which you still also declined. You are assuming responsibility of your decision. Please return if you have worsening chest pain, shortness of breath. Please stop snorting lines of cocaine. I am giving you a referral to see a nut grinder next week. Please make an appointment as soon as possible. Sepsis Event Note (ED) - Focused Exam Vital Signs: Vital Signs Temp Pulse Resp BP Pulse Ox 03/15/20 13:22 97.5 F 95 16 126/93 H 95 03/15/20 12:03 97.0 F 71 20 127/80 98 - My Orders Last 24 Hours: My Active Orders 03/15/20 11:50 Sodium Chloride 0.9% [Saline Flush] 10 ml FLUSH ASDIRECTED PRN Sodium Chloride 0.9% [Saline Flush] 2.5 ml FLUSH ASDIRECTED PRN Saline Lock Insert [OM.PC] Stat 03/15/20 11:51 EKG Documentation Completion [RC] STAT 03/15/20 20:00 PTT,PARTIAL THROMBOPLSTIN TIME [COAG] Q6H 03/16/20 02:00 PTT,PARTIAL THROMBOPLSTIN TIME [COAG] Q6H 03/16/20 08:00 PTT,PARTIAL THROMBOPLSTIN TIME [COAG] Q6H 03/16/20 14:00 PTT,PARTIAL THROMBOPLSTIN TIME [COAG] Q6H 03/16/20 20:00 PTT,PARTIAL THROMBOPLSTIN TIME [COAG] Q6H 03/17/20 02:00 PTT,PARTIAL THROMBOPLSTIN TIME [COAG] Q6H - Assessment/Plan Last 24 Hours: My Active Orders 03/15/20 11:50 Sodium Chloride 0.9% [Saline Flush] 10 ml FLUSH ASDIRECTED PRN Sodium Chloride 0.9% [Saline Flush] 2.5 ml FLUSH ASDIRECTED PRN Saline Lock Insert [OM.PC] Stat 03/15/20 11:51 EKG Documentation Completion [RC] STAT 03/15/20 20:00 PTT,PARTIAL THROMBOPLSTIN TIME [COAG] Q6H 03/16/20 02:00 PTT,PARTIAL THROMBOPLSTIN TIME [COAG] Q6H 03/16/20 08:00 PTT,PARTIAL THROMBOPLSTIN TIME [COAG] Q6H 03/16/20 14:00 PTT,PARTIAL THROMBOPLSTIN TIME [COAG] Q6H 03/16/20 20:00 PTT,PARTIAL THROMBOPLSTIN TIME [COAG] Q6H 03/17/20 02:00 PTT,PARTIAL THROMBOPLSTIN TIME [COAG] Q6H
[2020-03-15 13:02] LABS: BLOOD UREA NITROGEN,BUN 25 mg/dL (7.0-18.0); CARBON DIOXIDE,CO2 25.1 mmol/L (21.0-32.0); CHLORIDE,CL 104 mmol/L (98-107); GLUCOSE RANDOM 117 mg/dL (74-106); LIPASE 80 U/L (73-393); SODIUM,NA 140 mmol/L (136-148)
[2020-03-15] MEDS ORDERED: Aspirin 325 MG Tab PO ONE (13:20)
[2020-03-15] MEDS ORDERED: Heparin Sod,Pork In 0.45% Nacl 25,000 UNIT/500 ML IV.SOLN IV SCH (13:45)
[2020-03-15] MEDS ORDERED: Heparin Sodium 5,000 Units/ML Vial IVPUSH ONE (13:54)
[2020-03-15] MEDS ORDERED: Enoxaparin 100 MG/1 ML Syringe SUBCUT ONE (14:01)
--- NOTE | 2020-03-15 14:05 | CT ---
INDICATION: Pt w/epigastric pain x 24 hrs. Indication: Epigastric abdominal pain for 24 hours. Technique: CT of the abdomen and pelvis. No intravenous contrast. Coronal/sagittal reconstruction images. Comparison: None. Findings: Lung bases: There is no pleural or pericardial effusion. The heart size is normal. There is no acute airspace disease. There is no basilar pneumothorax. There is mild centrilobular emphysema. Abdomen/pelvis: Non cirrhotic liver morphology. There is no solid hepatic mass. There is no perihepatic ascites. The spleen size is normal. No adrenal mass. There is no hydronephrosis. There is no perinephric fluid collection. There is no hydronephrosis or nephrolithiasis. There is no pancreatic mass, glandular atrophy, or infiltration of the anterior pararenal space. There is no free intraperitoneal air. Urinary bladder and prostate are within normal limits. There is no evidence for small bowel or colonic obstruction. There is no pneumatosis, portal venous gas, pneumoperitoneum, or drainable fluid collection. There is mild motion artifact, which limits image quality, particularly of the lower abdomen. There is no evidence for appendicitis. The appendix is well seen on image 101, series 201. There is no gastric or duodenal wall thickening. No abdominal aortic aneurysm. No intramural hematoma. Nonenlarged lymph nodes are present in the pelvis. There is no pelvic sidewall, retroperitoneal, gastrohepatic ligament adenopathy. Advanced degenerative changes at the right hip. There are no suspicious bone lesions by CT. There is spurring at the endplates of the thoracolumbar spine. On sagittal reconstruction images, the vertebral body heights and alignment are maintained. Impression: 1. No findings are seen to explain epigastric abdominal pain. 2. There is no pancreatic mass, glandular atrophy, or infiltration of the anterior para renal space. 3. Normal caliber appendix. No adjacent inflammatory changes. 4. Normal caliber biliary tree. No radiodense gallstones or right upper quadrant fat stranding. Dictated by Gabino Arreaga MD @ 03/15/2020 2:02:42 PM Please note that all CT scans at this facility use dose modulation, iterative reconstruction, and/or weight-based dosing when appropriate to reduce radiation dose to as low as reasonably achievable. Dictated by: Gabino Arreaga MD @ 03/15/2020 14:02:53 (Electronically Signed)
== END 2020-03-15 14:54 | disposition left against medical advice (07) ==
LOC: MW.ED 11:36
DX: J45.909 Unspecified asthma, uncomplicated (principal); Z76.0 Encounter for issue of repeat prescription; I21.4 Non-ST elevation (NSTEMI) myocardial infarction; F14.10 Cocaine abuse, uncomplicated; I44.7 Left bundle-branch block, unspecified; Z79.82 Long term (current) use of aspirin; Z79.899 Other long term (current) drug therapy
CPT/HCPCS: 36415; 74176; 80053; 83605; 83690; 84484; 85025; 85610; 85730; 93005; 96372; 96374; 99285; A9270; J1650; J2930; 99284; J7620-GY

== ENCOUNTER 2020-03-21 11:53 | Emergency (ER) | payer SELFPAY ==
[2020-03-21] MEDS ORDERED: Sodium Chloride 0.9% 10 ML Syringe FLUSH PRN (11:54)
[2020-03-21] MEDS ORDERED: Sodium Chloride 0.9% 2.5 ML Syringe FLUSH PRN (11:54)
[2020-03-21] MEDS ORDERED: Albuterol/Ipratropium 3.0-0.5 MG/3 ML Neb Soln NEB ONE (11:58)
[2020-03-21] MEDS ORDERED: Albuterol 0.083% 2.5 MG/3 ML Neb Soln NEB ONE (11:58)
[2020-03-21] MEDS ORDERED: predniSONE 20 MG Tab PO ONE (12:01)
--- NOTE | 2020-03-21 12:01 | EDM.PDOC ---
ED HPI GENERAL MEDICAL PROBLEM - General Stated Complaint: SHORTNESS OF BREATH Time Seen by Provider: 03/21/20 11:53 Source of Information: Reports: Patient, Old Records History Limitations: Reports: No Limitations - History of Present Illness INITIAL COMMENTS - FREE TEXT/NARRATIVE: 59-year-old male past medical history of COPD, asthma, NSTEMI, cocaine abuse presenting with shortness of breath . He was seen in our emergency department on 03/15 with complaints of shortness of breath and abdominal pain. At that visit he had had an elevated troponin and recent cocaine use. Underwent CT imaging of the abdomen/pelvis for abdominal pain, with no acute findings. The physician did recommend transfer and hospitalization due to NSTEMI, and the patient signed out AGAINST MEDICAL ADVICE. Today, he presents with a 1 day history of dyspnea, coughing, wheezing, similar to prior COPD exacerbations. Took his home albuterol x2 prior to arrival without much relief. Denies chest discomfort, fever, hemoptysis, leg swelling, recent surgeries or immobilizations or long travel, history of cancer. Denies vomiting, diarrhea, recent illness. ROS: A 10-point review of systems was negative, except as noted in the HPI (or in the ROS section of this note). Past medical history: Reviewed, no additional pertinent history. Surgical history: Reviewed in system, no additional pertinent history. Social history: Reviewed in system, no additional pertinent history. Family history: Reviewed in system, no additional pertinent history. PHYSICAL EXAM Vital signs reviewed. Nursing notes reviewed. Constitutional: Awake, alert, non-distressed. Head: Normocephalic, atraumatic. Eyes: EOMI, conjunctiva normal, no discharge, no scleral icterus. Ears, Nose, Throat: External ears and nose normal, moist oral mucosa. Cardiovascular: Tachycardic, 2+ radial pulse, capillary refill less than 2 seconds. Pulmonary: normal work of breathing, no accessory muscle use. Soft expiratory wheezing. Speaking in full sentences. Abdomen/GI: Soft, nontender, nondistended, no guarding or rigidity, no masses. Musculoskeletal: No deformities. Integumentary: Appropriate color for ethnicity, warm, dry, no pallor or jaundice, no rash. Neurologic: Alert, answering questions appropriately, normal speech, no facial droop, moving all extremities well. Psychiatric: Appropriate mood and affect, normal thought process. - Related Data Allergies Allergy/AdvReac Type Severity Reaction Status Date / Time No Known Allergies Allergy Verified 03/21/20 12:10 Home Meds: Home Meds Albuterol Sulfate [Proair Hfa] 8.5 gm IH QID PRN #1 hfa.aer.ad 08/18/18 [Rx] Albuterol Sulfate [Albuterol Sulfate Hfa] 8.5 gm IH Q4HR PRN #1 hfa.aer.ad 03/15/20 [Rx] Aspirin 81 mg PO DAILY #30 tab.chew 03/15/20 [Rx] predniSONE [Prednisone] 60 mg PO DAILY 4 Days #12 tablet 03/21/20 [Rx] Past Medical History HEENT History: Reports: None Cardiovascular History: Reports: None Respiratory History: Reports: Asthma, COPD Gastrointestinal History: Reports: None Genitourinary History: Reports: None Musculoskeletal History: Reports: None Neurological History: Reports: None Psychiatric History: Reports: None Endocrine/Metabolic History: Reports: None Hematologic History: Reports: None Immunologic History: Reports: None Oncologic (Cancer) History: Reports: None Dermatologic History: Reports: None - Infectious Disease History Infectious Disease History: Reports: None - Past Surgical History Head Surgeries/Procedures: Reports: None HEENT Surgical History: Reports: None Cardiovascular Surgical History: Reports: None Respiratory Surgical History: Reports: None GI Surgical History: Reports: None Male Surgical History: Reports: None Endocrine Surgical History: Reports: None Neurological Surgical History: Reports: None Musculoskeletal Surgical History: Reports: None Oncologic Surgical History: Reports: None Dermatological Surgical History: Reports: None Social & Family History - Family History Family Medical History: Noncontributory - Caffeine Use Caffeine Use: Reports: Energy Drinks ED ROS GENERAL - Review of Systems Review Of Systems: See Below ED EXAM, GENERAL - Physical Exam Exam: See Below EKG INTERPRETATION EKG Interpretation Comments: 12-Lead ECG Interpretation Acquired: 12:29 PM Rhythm: Sinus tachycardia Rate: 101 bpm [place]: Normal Intervals: Left bundle branch block Ectopy: None RV Strain: No obvious RV strain pattern. Interpretation: No significant change from ECG on 03/15/2020 Course - Vital Signs Text/Narrative:: Patient hemodynamically stable, afebrile, well-appearing, looks nontoxic. Differential diagnosis includes but is not limited to: CHF, ACS, PE, pneumonia, pneumothorax, asthma exacerbation, COPD exacerbation, pleural effusion, pericardial effusion, pericarditis, and many others. Twelve-lead EKG shows a left bundle branch block but no acute ischemic change. CBC is reassuring. Chemistry panel shows mild worsening of renal function. Creatinine is 1.5. Troponin is elevated at 0.062. 1 view chest x-ray is clear. Patient was given 2 DuoNeb treatments and 2 albuterol nebulizer treatments along with p.o. prednisone. His breathing improved and he was feeling better after these therapies. Low suspicion for pulmonary embolism given lack of leg swelling or pleuritic chest pain. Patient has no chest discomfort. No evidence of heart failure or volume overload. No fever, no pulmonary infiltrate to suggest pneumonia. No sign of pneumothorax. No evidence of a pleural effusion. No cardiac murmur on auscultation. No URI type symptoms, no constitutional infectious symptoms. 1245: I am concerned about the elevated troponin, which meets the criteria for NSTEMI. This appears to be a near identical presentation to his last ED visit just a few days ago. I did recommend that we start anticoagulation and transfer the patient to [facility], which the patient is adamantly refusing. This is essentially what happened last time he was in the ER on 03/15/20. I explained my concern for an acute myocardial infarction. I strongly recommended transfer to a more comprehensive hospital for ground products director evaluation to determine if the patient needed angiography and PCI. The patient is adamantly refusing to be admitted to the hospital either here in [place] or to be transferred to another hospital. He is agreeable to full dose aspirin but absolutely will not permit hospitalization. He is requesting a refill of his albuterol inhaler. He is agreeable to a single dose of enoxaparin for anticoagulation. I explained multiple times my concern about a active or impending myocardial infarction and the concern about worsening of his clinical condition or even . The patient understands these risks and is requesting to be discharged home. He understands that he could progress to a complete coronary occlusion and could potentially . We will plan to have him continue his daily aspirin regimen and I will refill his inhalers as requested. I will refer him to cardiology here in [place]. I instructed him to come back to the emergency department immediately if the symptoms worsen or if he just changed his mind and wanted to be admitted. He is calm, rational, alert, and oriented to person/place/time/event. He shows no evidence of intoxication or mental impairment and appears competent to make his own decisions and he understands the risks of refusing treatment including . 1:11 PM: Discharged against medical advice. Signed hospital AMA form witnessed by RN (Rachel). Last Recorded V/S: Last Vital Signs Temp 36.4 C 03/21/20 12:11 Pulse 105 H 03/21/20 12:11 Resp 20 03/21/20 12:11 BP 128/96 H 03/21/20 12:11 Pulse Ox 97 03/21/20 12:11 - Orders/Labs/Meds Orders: Active Orders 24 hr Category Date Time Status Cardiac Monitoring [RC] . DIRECTED Care 03/21/20 11:54 Active EKG Documentation Completion [RC] STAT Care 03/21/20 11:54 Active Pulse Oximetry [RC] ASDIRECTED Care 03/21/20 11:54 Active RT Aerosol Therapy [RC] ASDIRECTED Care 03/21/20 11:59 Active Sodium Chloride 0.9% [Saline Flush] Med 03/21/20 11:54 Active 10 ml FLUSH ASDIRECTED PRN Sodium Chloride 0.9% [Saline Flush] Med 03/21/20 11:54 Active 2.5 ml FLUSH ASDIRECTED PRN Saline Lock Insert [OM.PC] Stat Oth 03/21/20 11:54 Ordered Medication Orders Sodium Chloride (Saline Flush) 10 ml FLUSH ASDIRECTED PRN PRN Reason: Keep Vein Open Sodium Chloride (Saline Flush) 2.5 ml FLUSH ASDIRECTED PRN PRN Reason: Keep Vein Open Labs: Laboratory Tests 03/21/20 03/21/20 Range/Units 12:05 12:05 WBC 8.15 (4.0-11.0) K/uL RBC 4.66 (4.50-5.90) M/uL Hgb 14.7 (13.0-17.0) g/dL Hct 43.6 (38.0-50.0) % MCV 93.6 (80.0-98.0) fL MCH 31.5 (27.0-32.0) pg MCHC 33.7 (31.0-37.0) g/dL RDW Std Deviation 56.0 (28.0-62.0) fl RDW Coeff of [place] 17 H (11.0-15.0) % Plt Count 270 (150-400) K/uL MPV 10.80 (7.40-12.00) fL Neut % (Auto) 80.5 H (48.0-80.0) % Lymph % (Auto) 14.7 L (16.0-40.0) % [place] % (Auto) 4.3 (0.0-15.0) % Eos % (Auto) 0.5 (0.0-7.0) % Baso % (Auto) 0.0 (0.0-1.5) % Neut # (Auto) 6.6 H (1.4-5.7) K/uL Lymph # (Auto) 1.2 (0.6-2.4) K/uL [place] # (Auto) 0.4 (0.0-0.8) K/uL Eos # (Auto) 0.0 (0.0-0.7) K/uL Baso # (Auto) 0.0 (0.0-0.1) K/uL Nucleated RBC % 0.0 /100WBC Nucleated RBCs # 0 K/uL Sodium 142 (136-148) mmol/L Potassium 4.5 (3.5-5.1) mmol/L Chloride 107 (98-107) mmol/L Carbon Dioxide 28.7 (21.0-32.0) mmol/L BUN 30 H (7.0-18.0) mg/dL Creatinine 1.5 H (0.8-1.3) mg/dL Est Cr Clr Drug Dosing 55.08 mL/min Estimated GFR (MDRD) 57.7 ml/min Glucose 111 H (74-106) mg/dL Calcium 8.1 L (8.5-10.1) mg/dL Total Bilirubin 0.2 (0.2-1.0) mg/dL AST 31 (15-37) IU/L ALT 63 (14-63) IU/L Alkaline Phosphatase 61 (46-116) U/L Troponin I 0.062 H* (0.000-0.056) ng/mL Total Protein 6.5 (6.4-8.2) g/dL Albumin 3.3 L (3.4-5.0) g/dL Globulin 3.2 (2.6-4.0) g/dL Albumin/Globulin Ratio 1.0 (0.9-1.6) Meds: Medications Generic Name Dose Route Start Last Admin Trade Name Freq PRN Reason Stop Dose Admin Sodium Chloride 10 ml 03/21/20 11:54 Saline Flush FLUSH ASDIRECTED PRN Keep Vein Open Sodium Chloride 2.5 ml 03/21/20 11:54 Saline Flush FLUSH ASDIRECTED PRN Keep Vein Open Discontinued Medications Generic Name Dose Route Start Last Admin Trade Name Freq PRN Reason Stop Dose Admin Albuterol 5 mg 03/21/20 11:58 Proventil Neb Soln NEB 03/21/20 11:59 ONETIME ONE Albuterol/Ipratropium 6 ml 03/21/20 11:58 Duoneb 3.0-0.5 Mg/3 Ml NEB 03/21/20 11:59 ONETIME ONE Aspirin 325 mg 03/21/20 12:49 03/21/20 12:55 Aspirin PO 03/21/20 12:50 325 mg ONETIME ONE Administration Enoxaparin Sodium 80 mg 03/21/20 13:06 Lovenox 1 mg/kg (80 mg) 03/21/20 13:07 SUBCUT ONETIME ONE Prednisone 60 mg 03/21/20 12:01 03/21/20 12:19 Prednisone PO 03/21/20 12:02 60 mg ONETIME ONE Administration Departure - Departure Time of Disposition: 13:02 Disposition: Against Medical Advice 07 Condition: Good Clinical Impression: Left against medical advice, NSTEMI (non-ST elevated myocardial infarction), COPD with asthma - Discharge Information *PRESCRIPTION DRUG MONITORING PROGRAM REVIEWED*: Not Applicable *COPY OF PRESCRIPTION DRUG MONITORING REPORT IN PATIENT DESTINY: Not Applicable Prescriptions: predniSONE [Prednisone] 60 mg PO DAILY 4 Days #12 tablet Instructions: Coronary Artery Disease, Male, Chronic Obstructive Pulmonary Disease Exacerbation, [id number], Metered Dose Inhaler (No Spacer Used), Heart Attack Referrals: [facility] [Provider Group] - 3 Days (For follow-up of elevated troponins - signed out against medical advice.) Additional Instructions: I am concerned you are having a heart attack. We did recommend that you allow us to admit you to the hospital because I am concerned that your condition could worsen or you could . You are choosing to leave the emergency department AGAINST MEDICAL ADVICE. At this point you are refusing to allow us to admit you to the hospital. You understand your condition could worsen or you could as a result of this decision. You can return to the emergency department at any point if you change your mind or if you feel worse. Please continue taking your daily baby aspirin. I am going to refer you to the cardiology clinic here in [place] and I would like for you to make an appointment to be seen by them as soon as possible. I will prescribe an additional 4 days of the prednisone steroid and refill your albuterol inhaler as requested. You should follow-up with your primary medical doctor in the next 1 week for reevaluation of your asthma and COPD as these do not seem to be very well controlled. The following information is given to patients seen in the emergency department who are being discharged. This information is to outline your options for follow-up care. We provide all patients seen in our emergency department with a follow-up referral. The need for follow-up, as well as the timing and circumstances, are variable depending upon the specifics of your emergency department visit. If you don't have a primary care physician on staff, we will provide you with a referral. We always advise you to contact your personal physician following an emergency department visit to inform them of the circumstance of the visit and for follow-up with them and/or the need for any referrals to a consulting specialist. The emergency department will also refer you to a specialist when appropriate. This referral assures that you have the opportunity for follow-up care with a specialist. All of these measure are taken in an effort to provide you with optimal care, which includes your follow-up. Under all circumstances we always encourage you to contact your private physician who remains a resource for coordinating your care. When calling for follow-up care, please make the office aware that this follow-up is from your recent emergency room visit. If for any reason you are refused follow-up, please contact the [facility] Emergency Department at and asked to speak to the emergency department charge nurse. If you do not have a primary care physician that is caring for you, you can contact these clinics below to set up an appointment to establish care: [facility] - Primary Care [address] [place] [address] [facility] [address] [place] [id number] Sepsis Event Note (ED) - Focused Exam Vital Signs: Vital Signs Temp Pulse Resp BP Pulse Ox 03/21/20 12:11 36.4 C 105 H 20 128/96 H 97 - My Orders Last 24 Hours: My Active Orders 03/21/20 11:54 Cardiac Monitoring [RC] . DIRECTED EKG Documentation Completion [RC] STAT Pulse Oximetry [RC] ASDIRECTED Sodium Chloride 0.9% [Saline Flush] 10 ml FLUSH ASDIRECTED PRN Sodium Chloride 0.9% [Saline Flush] 2.5 ml FLUSH ASDIRECTED PRN Saline Lock Insert [OM.PC] Stat 03/21/20 11:59 RT Aerosol Therapy [RC] ASDIRECTED - Assessment/Plan Last 24 Hours: My Active Orders 03/21/20 11:54 Cardiac Monitoring [RC] . DIRECTED EKG Documentation Completion [RC] STAT Pulse Oximetry [RC] ASDIRECTED Sodium Chloride 0.9% [Saline Flush] 10 ml FLUSH ASDIRECTED PRN Sodium Chloride 0.9% [Saline Flush] 2.5 ml FLUSH ASDIRECTED PRN Saline Lock Insert [OM.PC] Stat 03/21/20 11:59 RT Aerosol Therapy [RC] ASDIRECTED
[2020-03-21 12:35] LABS: CARBON DIOXIDE,CO2 28.7 mmol/L (21.0-32.0); POTASSIUM,K 4.5 mmol/L (3.5-5.1)
[2020-03-21] MEDS ORDERED: Aspirin 325 MG Tab PO ONE (12:49)
--- NOTE | 2020-03-21 12:55 | CR ---
Chest: Portable view of the chest was obtained. Comparison: Prior chest x-ray of 02/12/20. Stable cardiomegaly is seen. Upper mediastinum is normal. Pulmonary vessels may be minimally increased which appear chronic. Lungs otherwise are clear. Bony structures are grossly intact. Impression: 1. Findings as noted above. Nothing acute is appreciated. Diagnostic code #2 This report was dictated in MDT
[2020-03-21] MEDS ORDERED: Enoxaparin 100 MG/1 ML Syringe SUBCUT ONE (13:06)
== END 2020-03-21 14:14 | disposition left against medical advice (07) ==
LOC: MW.ED 11:53
DX: I21.4 Non-ST elevation (NSTEMI) myocardial infarction (principal); J44.9 Chronic obstructive pulmonary disease, unspecified; Z53.20 Procedure and treatment not carried out because of patient's decision for unspecified reasons; Z79.82 Long term (current) use of aspirin; Z79.899 Other long term (current) drug therapy
CPT/HCPCS: 36415; 71045; 80053; 84484; 85025; 96372; 99285; A9270; J1650; 99284; J7620-GY

== ENCOUNTER 2020-05-04 20:03 | Emergency (ER) | payer SELFPAY ==
[2020-05-04] MEDS ORDERED: Dexamethasone 10 MG/ML SDV IVPUSH ONE (20:16)
[2020-05-04] MEDS ORDERED: Sodium Chloride 0.9% 2.5 ML Syringe FLUSH PRN (20:16)
[2020-05-04] MEDS ORDERED: Sodium Chloride 0.9% 10 ML Syringe FLUSH PRN (20:16)
[2020-05-04] MEDS ORDERED: Aspirin 81 MG Tab.Chew PO ONE (20:16)
--- NOTE | 2020-05-04 20:20 | EDM.PDOC ---
ED HPI GENERAL MEDICAL PROBLEM - General Chief Complaint: Chest Pain Stated Complaint: COPD, TROUBLE BREATHING, CHEST PAIN Time Seen by Provider: 05/04/20 20:05 Source of Information: Reports: Patient - History of Present Illness INITIAL COMMENTS - FREE TEXT/NARRATIVE: History of present illness: 59-year-old male presenting with acutely worsening shortness of breath over the last hour and a half. He reports he has COPD and did attempt his nebulizer but was unable to have any improvement in his breathing. He reports he had been fine until earlier today. 2 days ago he had the flu shot and then yesterday he woke up with some nausea and vomiting and felt at that was related to the flu shot. At that time he had no difficulty breathing. Now he has been having worsening difficulty breathing for the last few hours with a cough that is nonproductive. He has not had any fevers or chills. Review of systems: As per history of present illness and below otherwise all systems reviewed and negative. Past medical history: As per history of present illness and as reviewed below otherwise noncontributory. Hypertension, COPD Surgical history: As per history of present illness and as reviewed below otherwise noncontributory. Denies Social history: Occasional alcohol, no IV drug use, occasional cocaine, daily smoker Family history: As per history of present illness and as reviewed below otherwise noncontributory. Physical exam: Vitals: hypoxic on arrival, improved with O2 administration GEN: Moderate distress, well appearing HEENT: Atraumatic, normocephalic, mucous membranes moist, Neck: supple. Lungs: Moderate respiratory distress. Expiratory wheezes Heart: Tachycardic Abdomen: Soft, nondistended, nontender. Back: nontender Extremities: Atraumatic. Neurovascularly intact. Neuro: Awake, alert, oriented. Neuro Exam nonfocal. Skin: warm, dry, no lesions Diagnostics: Labs, Chest x-ray, EKG, COVID swab (which the patient refused) Therapeutics: Albuterol inhaler MDM: Impression: [] Plan: [] Definitive disposition and diagnosis as appropriate pending reevaluation and review of above. chest Pain Score (Numeric/FACES): 5 - Related Data Allergies Allergy/AdvReac Type Severity Reaction Status Date / Time No Known Allergies Allergy Verified 05/04/20 20:33 Home Meds: Home Meds Albuterol Sulfate [Proair Hfa] 8.5 gm IH QID PRN #1 hfa.aer.ad 08/18/18 [Rx] Aspirin 81 mg PO DAILY #30 tab.chew 03/15/20 [Rx] predniSONE [Prednisone] 60 mg PO DAILY 4 Days #12 tablet 03/21/20 [Rx] Furosemide [Lasix] 20 mg PO DAILY 05/04/20 [History] Past Medical History HEENT History: Reports: None Cardiovascular History: Reports: None Respiratory History: Reports: Asthma, COPD Gastrointestinal History: Reports: None Genitourinary History: Reports: None Musculoskeletal History: Reports: None Neurological History: Reports: None Psychiatric History: Reports: None Endocrine/Metabolic History: Reports: None Hematologic History: Reports: None Immunologic History: Reports: None Oncologic (Cancer) History: Reports: None Dermatologic History: Reports: None - Infectious Disease History Infectious Disease History: Reports: None - Past Surgical History Head Surgeries/Procedures: Reports: None HEENT Surgical History: Reports: None Cardiovascular Surgical History: Reports: None Respiratory Surgical History: Reports: None GI Surgical History: Reports: None Male Surgical History: Reports: None Endocrine Surgical History: Reports: None Neurological Surgical History: Reports: None Musculoskeletal Surgical History: Reports: None Oncologic Surgical History: Reports: None Dermatological Surgical History: Reports: None Social & Family History - Family History Family Medical History: Noncontributory - Caffeine Use Caffeine Use: Reports: Energy Drinks ED ROS GENERAL - Review of Systems Review Of Systems: See Below (see HPI) ED EXAM, GENERAL - Physical Exam Exam: See Below (See HPI) EKG INTERPRETATION EKG Interpretation Comments: EKG performed today at 8:16 PM, sinus arrhythmia, tachycardia, rate 117, PVCs, right atrial enlargement, intraventricular conduction delay, possible atypical left bundle branch block, no STEMI. Independently interpreted by me. Compared to prior EKG from February 2020, the morphology appears clinically similar although more tachycardic today with more frequent PVCs. Course - Vital Signs Text/Narrative:: Dyspnea, Wheezing. Cough. No fever. Chest x-ray shows cardiomegaly with no significant change from prior, no pneumonia. Troponin negative. Labs largely unremarkable except for creatinine slightly elevated although this appears consistent with prior levels and BNP is also elevated although the patient does not have any lower extremity edema nor any rales on exam. The patient refused COVID test as he has an appoint with his primary care physician where he will need to have that done as well in anticipation of a colonoscopy later this week. Patient is refusing any further treatment and reports that he is feeling well. He is still mildly tachycardic at a rate of 102 though no longer dyspneic. I discussed with him my recommendations for further treatment and monitoring, however he declines any of this. I will prescribe him prednisone and an albuterol inhaler as he has already run out of his albuterol. He agrees with that plan. Patient requested that I send the prednisone and albuterol to the [employer] vending machine here so that he can pick them up tonight. However there was a problem with the patient obtaining the albuterol inhaler from the vending machine and therefore he was given an inhaler here with respiratory teaching. Last Recorded V/S: Last Vital Signs Temp 97.1 F 05/04/20 20:29 Pulse 127 H 05/04/20 20:29 Resp 26 H 05/04/20 20:29 BP 171/123 H 05/04/20 20:29 Pulse Ox 92 L 05/04/20 20:29 - Orders/Labs/Meds Orders: Active Orders 24 hr Category Date Time Status EKG Documentation Completion [RC] STAT Care 05/04/20 20:16 Active RT Post Treatment Assessment [RC] Click to Edit Care 05/04/20 21:32 Active RT Pre-Treatment Assessment [RC] Click to Edit Care 05/04/20 21:32 Active Sodium Chloride 0.9% [Saline Flush] Med 05/04/20 20:16 Active 10 ml FLUSH ASDIRECTED PRN Sodium Chloride 0.9% [Saline Flush] Med 05/04/20 20:16 Active 2.5 ml FLUSH ASDIRECTED PRN Saline Lock Insert [OM.PC] Stat Oth 05/04/20 20:16 Ordered Medication Orders Sodium Chloride (Saline Flush) 10 ml FLUSH ASDIRECTED PRN PRN Reason: Keep Vein Open Sodium Chloride (Saline Flush) 2.5 ml FLUSH ASDIRECTED PRN PRN Reason: Keep Vein Open Labs: Laboratory Tests 05/04/20 05/04/20 05/04/20 Range/Units 20:25 20:25 20:25 WBC 8.14 (4.0-11.0) K/uL RBC 4.57 (4.50-5.90) M/uL Hgb 14.5 (13.0-17.0) g/dL Hct 41.8 (38.0-50.0) % MCV 91.5 (80.0-98.0) fL MCH 31.7 (27.0-32.0) pg MCHC 34.7 (31.0-37.0) g/dL RDW Std Deviation 56.9 (28.0-62.0) fl RDW Coeff of Chuy 18 H (11.0-15.0) % Plt Count 204 (150-400) K/uL MPV 11.50 (7.40-12.00) fL Neut % (Auto) 82.1 H (48.0-80.0) % Lymph % (Auto) 10.6 L (16.0-40.0) % Harris % (Auto) 6.4 (0.0-15.0) % Eos % (Auto) 0.7 (0.0-7.0) % Baso % (Auto) 0.2 (0.0-1.5) % Neut # (Auto) 6.7 H (1.4-5.7) K/uL Lymph # (Auto) 0.9 (0.6-2.4) K/uL Harris # (Auto) 0.5 (0.0-0.8) K/uL Eos # (Auto) 0.1 (0.0-0.7) K/uL Baso # (Auto) 0.0 (0.0-0.1) K/uL INR 1.11 Sodium 141 (136-148) mmol/L Potassium 4.8 (3.5-5.1) mmol/L Chloride 106 (98-107) mmol/L Carbon Dioxide 25.0 (21.0-32.0) mmol/L BUN 29 H (7.0-18.0) mg/dL Creatinine 1.5 H (0.8-1.3) mg/dL Est Cr Clr Drug Dosing 55.08 mL/min Estimated GFR (MDRD) 47.6 ml/min Glucose 141 H (74-106) mg/dL Calcium 8.4 L (8.5-10.1) mg/dL Total Bilirubin 0.4 (0.2-1.0) mg/dL AST 52 H (15-37) IU/L ALT 80 H (14-63) IU/L Alkaline Phosphatase 71 (46-116) U/L Troponin I < 0.050 (0.000-0.056) ng/mL B-Natriuretic Peptide (<100) PG/ML Total Protein 6.6 (6.4-8.2) g/dL Albumin 3.6 (3.4-5.0) g/dL Globulin 3.0 (2.6-4.0) g/dL Albumin/Globulin Ratio 1.2 (0.9-1.6) 05/04/20 Range/Units 20:25 WBC (4.0-11.0) K/uL RBC (4.50-5.90) M/uL Hgb (13.0-17.0) g/dL Hct (38.0-50.0) % MCV (80.0-98.0) fL MCH (27.0-32.0) pg MCHC (31.0-37.0) g/dL RDW Std Deviation (28.0-62.0) fl RDW Coeff of Chuy (11.0-15.0) % Plt Count (150-400) K/uL MPV (7.40-12.00) fL Neut % (Auto) (48.0-80.0) % Lymph % (Auto) (16.0-40.0) % Harris % (Auto) (0.0-15.0) % Eos % (Auto) (0.0-7.0) % Baso % (Auto) (0.0-1.5) % Neut # (Auto) (1.4-5.7) K/uL Lymph # (Auto) (0.6-2.4) K/uL Harris # (Auto) (0.0-0.8) K/uL Eos # (Auto) (0.0-0.7) K/uL Baso # (Auto) (0.0-0.1) K/uL INR Sodium (136-148) mmol/L Potassium (3.5-5.1) mmol/L Chloride (98-107) mmol/L Carbon Dioxide (21.0-32.0) mmol/L BUN (7.0-18.0) mg/dL Creatinine (0.8-1.3) mg/dL Est Cr Clr Drug Dosing mL/min Estimated GFR (MDRD) ml/min Glucose (74-106) mg/dL Calcium (8.5-10.1) mg/dL Total Bilirubin (0.2-1.0) mg/dL AST (15-37) IU/L ALT (14-63) IU/L Alkaline Phosphatase (46-116) U/L Troponin I (0.000-0.056) ng/mL B-Natriuretic Peptide 2798 H (<100) PG/ML Total Protein (6.4-8.2) g/dL Albumin (3.4-5.0) g/dL Globulin (2.6-4.0) g/dL Albumin/Globulin Ratio (0.9-1.6) Meds: Medications Generic Name Dose Route Start Last Admin Trade Name Freq PRN Reason Stop Dose Admin Sodium Chloride 10 ml 05/04/20 20:16 Saline Flush FLUSH ASDIRECTED PRN Keep Vein Open Sodium Chloride 2.5 ml 05/04/20 20:16 Saline Flush FLUSH ASDIRECTED PRN Keep Vein Open Discontinued Medications Generic Name Dose Route Start Last Admin Trade Name Freq PRN Reason Stop Dose Admin Albuterol 2 gm 05/04/20 21:30 05/04/20 21:55 Ventolin Hfa INH 05/04/20 21:31 Not Given ONETIME ONE Albuterol Confirm 05/04/20 21:52 05/04/20 21:55 Ventolin Hfa Administered 05/04/20 21:53 18 gm Dose Administration 18 gm .ROUTE .STK-MED ONE Aspirin 324 mg 05/04/20 20:16 05/04/20 20:38 Aspirin PO 05/04/20 20:17 324 mg ONETIME ONE Administration Dexamethasone 8 mg 05/04/20 20:16 05/04/20 20:38 Dexamethasone IVPUSH 05/04/20 20:17 8 mg ONETIME ONE Administration - Re-Assessments/Exams Free Text/Narrative Re-Assessment/Exam: 05/04/20 20:51 Patient refused the COVID swab. Breathing is now easier for the patient and he is in no respiratory distress currently. Oxygen saturation is improved and his heart rate is improved as well. Patient reports that he feels fine and would like to be discharged now. He does not want any further testing. He reports that he has an appoint with his primary care doctor tomorrow we will see and be reevaluated by and that he has a cold swab ordered for tomorrow as well. He did not want to wait for repeat troponin. Patient did receive steroid and an albuterol inhaler here. Discussed the risks of leaving without full and adequate work-up and the patient did voice understanding of the risks and agreed to sign AMA paperwork. Departure - Departure Time of Disposition: 21:26 Disposition: Against Medical Advice 07 Clinical Impression: Dyspnea, COPD exacerbation - Discharge Information Instructions: Chronic Obstructive Pulmonary Disease Exacerbation, [id number], Shortness of Breath, Adult, Namk-rg-Pkcg, Cough, Adult, Mxhz-[id number], How to Use a Nebulizer, Adult, Chronic Obstructive Pulmonary Disease, Utyq-js-Lugu, Nonspecific Chest Pain, Adult, Qeab-he-Zeha, Form - COPD Action Plan, Chronic Bronchitis, Adult, How to Use a Dry Powder Inhaler, Pumz-[id number] Referrals: Vannesa Miller PA [Primary Care Provider] - 1 Day Forms: ED Department Discharge Additional Instructions: You have decided to leave today without a full work-up. If you change your mind and would like to return for the appropriate work-up, please do so immediately. If you do have any worsening of your breathing or if your chest pain returns, please return to the emergency department immediately. The following information is given to patients seen in the emergency department who are being discharged to home. This information is to outline your options for follow-up care. We provide all patients seen in our emergency department with a follow-up referral. The need for follow-up, as well as the timing and circumstances, are variable depending upon the specifics of your emergency department visit. If you don't have a primary care physician on staff, we will provide you with a referral. We always advise you to contact your personal physician following an emergency department visit to inform them of the circumstance of the visit and for follow-up with them and/or the need for any referrals to a consulting specialist. The emergency department will also refer you to a specialist when appropriate. This referral assures that you have the opportunity for follow-up care with a specialist. All of these measure are taken in an effort to provide you with optimal care, which includes your follow-up. Under all circumstances we always encourage you to contact your private physician who remains a resource for coordinating your care. When calling for follow-up care, please make the office aware that this follow-up is from your recent emergency room visit. If for any reason you are refused follow-up, please contact the [facility] Emergency Department at and asked to speak to the emergency department charge nurse. Sepsis Event Note (ED) - Focused Exam Vital Signs: Vital Signs Temp Pulse Resp BP Pulse Ox 05/04/20 20:29 97.1 F 127 H 26 H 171/123 H 92 L - My Orders Last 24 Hours: My Active Orders 05/04/20 20:16 EKG Documentation Completion [RC] STAT Sodium Chloride 0.9% [Saline Flush] 10 ml FLUSH ASDIRECTED PRN Sodium Chloride 0.9% [Saline Flush] 2.5 ml FLUSH ASDIRECTED PRN Saline Lock Insert [OM.PC] Stat 05/04/20 21:32 RT Post Treatment Assessment [RC] Click to Edit RT Pre-Treatment Assessment [RC] Click to Edit - Assessment/Plan Last 24 Hours: My Active Orders 05/04/20 20:16 EKG Documentation Completion [RC] STAT Sodium Chloride 0.9% [Saline Flush] 10 ml FLUSH ASDIRECTED PRN Sodium Chloride 0.9% [Saline Flush] 2.5 ml FLUSH ASDIRECTED PRN Saline Lock Insert [OM.PC] Stat 05/04/20 21:32 RT Post Treatment Assessment [RC] Click to Edit RT Pre-Treatment Assessment [RC] Click to Edit
[2020-05-04 20:50] LABS: BLOOD UREA NITROGEN,BUN 29 mg/dL (7.0-18.0); CHLORIDE,CL 106 mmol/L (98-107); GLUCOSE RANDOM 141 mg/dL (74-106); POTASSIUM,K 4.8 mmol/L (3.5-5.1); SODIUM,NA 141 mmol/L (136-148)
--- NOTE | 2020-05-04 21:18 | CR ---
INDICATION: Dyspnea, chest pain. TECHNIQUE: Chest radiograph 1 view COMPARISON: 03/26/2020 FINDINGS: Cardiovascular and mediastinum: Heart and mediastinal contours stable. Heart size remains mildly enlarged. Lungs and pleural spaces: Bilateral lung markings are grossly unchanged from 03/26/2020. No pleural effusions or pneumothorax. Bones and soft tissues: No significant findings. IMPRESSION: 1. Mild cardiomegaly. No acute abnormality or significant change from 03/26/2020. Dictated by Wesley Gomez MD @ 05/04/2020 9:17:40 PM Dictated by: Wesley Gomez MD @ 05/04/2020 21:17:44 (Electronically Signed)
[2020-05-04] MEDS ORDERED: Albuterol 8 GM Inhaler INH ONE (21:30)
[2020-05-04] MEDS ORDERED: Albuterol HFA 18 Gm Inhaler ONE (21:52)
== END 2020-05-04 21:57 | disposition left against medical advice (07) ==
LOC: MW.ED 20:03
DX: J44.1 Chronic obstructive pulmonary disease with (acute) exacerbation (principal); I49.8 Other specified cardiac arrhythmias; R00.0 Tachycardia, unspecified; Z79.899 Other long term (current) drug therapy
CPT/HCPCS: 36415; 71045; 80053; 83880; 84484; 85025; 85610; 93005; 96374; 99285; A9270; J1100; 99283; J3535-GY

== ENCOUNTER 2020-05-08 07:06 | Day surgery (SDC) | payer SELFPAY ==
[~2020-05-08 07:06] MED LIST: Lactated Ringers 1,000 ML IV SCH
[2020-05-08] MEDS ORDERED: Midazolam 1 MG/ML 2 ML SDV ONE (07:27)
[2020-05-08] MEDS ORDERED: Propofol 200 MG/20 ML SDV ONE (07:27)
[2020-05-08] MEDS ORDERED: fentaNYL 100 MCG/2 ML SDV ONE (07:27)
--- NOTE | 2020-05-08 08:03 | PCM.PREANE ---
Preanesthetic Assessment - Anesthesia/Transfusion/Family Hx Anesthesia History: Prior Anesthesia Without Reaction Family History of Anesthesia Reaction: No Transfusion History: No Prior Transfusion(s) Intubation History: Unknown - Review of Systems General: No Symptoms Pulmonary: No Symptoms Cardiovascular: No Symptoms Gastrointestinal: No Symptoms Neurological: No Symptoms Other: Reports: None - Physical Assessment Vital Signs: Last Vital Signs Temp 36.3 C 05/08/20 07:47 Pulse 106 H 05/08/20 07:47 Resp 16 05/08/20 07:47 BP 140/95 H 05/08/20 07:47 Pulse Ox 94 L 05/08/20 07:47 Height: 5 ft 11 in Weight: 83.007 kg ASA Class: 3 Mental Status: Alert & Oriented x3 Airway Class: Mallampati = 2 Dentition: Reports: [place](s) (gold one x1 upper front, multiple porcelan upper front), Missing Tooth/Teeth (most of the teeth on the left side) Thyro-Mental Finger Breadths: 3 Mouth Opening Finger Breadths: 3 ROM/Head Extension: Full Lungs: Clear to Auscultation, Normal Respiratory Effort Cardiovascular: Regular Rate, Regular Rhythm - Allergies Allergies/Adverse Reactions: Allergies Allergy/AdvReac Type Severity Reaction Status Date / Time No Known Allergies Allergy Verified 05/05/20 09:36 - Blood Blood Available: No - Anesthesia Plan Pre-Op Medication Ordered: None - Acknowledgements Anesthesia Type Planned: MAC Pt an Appropriate Candidate for the Planned Anesthesia: Yes Alternatives and Risks of Anesthesia Discussed w Pt/Guardian: Yes Pt/Guardian Understands and Agrees with Anesthesia Plan: Yes PreAnesthesia Questionnaire HEENT History: Reports: Other (See Below) Other HEENT History: wears glasses, has top partial Cardiovascular History: Reports: High Cholesterol, Hypertension, Other (See Below) Other Cardiovascular History: have been told he "may have had a mild heart attack", on lasix for lower extremity edema, also states he possibly had blood clots to his lower extremities and was treated with blood thinners Respiratory History: Reports: Asthma, COPD (moderate to severe), SOB (only one flight of stairs) Gastrointestinal History: Reports: Colon Polyp, Other (See Below) Other Gastrointestinal History: states occasional reflux Genitourinary History: Reports: None Musculoskeletal History: Reports: None Neurological History: Reports: None Psychiatric History: Reports: None Endocrine/Metabolic History: Reports: None Hematologic History: Reports: None Immunologic History: Reports: None Oncologic (Cancer) History: Reports: None Dermatologic History: Reports: Psoriasis - Infectious Disease History Infectious Disease History: Reports: None - Past Surgical History Head Surgeries/Procedures: Reports: None HEENT Surgical History: Reports: None Cardiovascular Surgical History: Reports: None Respiratory Surgical History: Reports: None GI Surgical History: Reports: Colonoscopy (10 years ago - 3 polyps) Male Surgical History: Reports: None Endocrine Surgical History: Reports: None Neurological Surgical History: Reports: None Musculoskeletal Surgical History: Reports: None Oncologic Surgical History: Reports: None Dermatological Surgical History: Reports: None - SUBSTANCE USE Smoking Status *Q: Current Every Day Smoker (1/2 ppd) Tobacco Use Within Last Twelve Months: Cigarettes - HOME MEDS Home Medications: Home Meds Albuterol Sulfate [Proair Hfa] 8.5 gm IH QID PRN #1 hfa.aer.ad 08/18/18 [Rx] Aspirin 81 mg PO DAILY #30 tab.chew 03/15/20 [Rx] Furosemide [Lasix] 20 mg PO DAILY 05/04/20 [History] Fluticasone Propion/Salmeterol [Fluticasone-Salmeterol 250-50] 1 puff INH BID 05/05/20 [History] Ipratropium/Albuterol Sulfate [Iprat-Albut 0.5-3(2.5) mg/3 ml] 1 dose NEB ASDIRECTED PRN 05/05/20 [History] amLODIPine Besylate [Amlodipine Besylate] 5 mg PO DAILY 05/05/20 [History] atorvaSTATin Calcium [Atorvastatin Calcium] 40 mg PO DAILY 05/05/20 [History] guaiFENesin [Mucinex] 2 tab PO BID 05/05/20 [History] predniSONE [Prednisone] 20 mg PO DAILY 05/05/20 [History] - CURRENT (IN HOUSE) MEDS Current Meds: Current Medications Lactated Ringer's (Ringers, Lactated) 1,000 mls @ 125 mls/hr IV ASDIRECTED TONY Discontinued Medications Fentanyl (Sublimaze) Confirm Administered Dose 100 mcg .ROUTE .STK-MED ONE Stop: 05/08/20 07:28 Midazolam HCl (Versed 1 Mg/Ml) Confirm Administered Dose 2 mg .ROUTE .STK-MED ONE Stop: 05/08/20 07:28 Propofol (Diprivan 20 Ml) Confirm Administered Dose 400 mg .ROUTE .[facility] ONE Stop: 05/08/20 07:28
--- NOTE | 2020-05-08 09:37 | PCM.OPNOTE ---
- General Post-Op/Procedure Note Date of Surgery/Procedure: 05/08/20 Operative Procedure(s): colonoscopy, Snare polypectomy, Random biopsies Findings: Colon polyps, Slightly irritated mucosa. Dictation # [id number] Pre Op Diagnosis: Changing bowel habits Post-Op Diagnosis: Colon polyp, diverticulosis Anesthesia Technique: Moderate Sedation Primary Surgeon: Bakari Alan Pathology: colon polyps, random biopsies Complications: None Condition: Good
--- NOTE | 2020-05-08 10:19 | PCM.POSTAN ---
POST ANESTHESIA ASSESSMENT - MENTAL STATUS Mental Status: Alert, Oriented - VITAL SIGNS Vital Signs: Last Vital Signs Temp 36.3 C 05/08/20 07:47 Pulse 92 05/08/20 09:46 Resp 13 05/08/20 09:46 BP 113/74 05/08/20 09:46 Pulse Ox 97 05/08/20 09:46 - RESPIRATORY Respiratory Status: Respiratory Rate WNL, Airway Patent, O2 Saturation Stable - CARDIOVASCULAR CV Status: Pulse Rate WNL, Blood Pressure Stable - GASTROINTESTINAL GI Status: No Symptoms - PAIN Pain Score: 0 - POST OP HYDRATION Hydration Status: Adequate & Stable - OBSERVATIONS Free Text/Narrative:: No anesthesia problems
--- NOTE | 2020-05-08 10:21 | PCM48HPAN ---
Post Anesthesia Note - EVALUATION WITHIN 48HRS OF ANESTHETIC Vital Signs in Normal Range: Yes Patient Participated in Evaluation: Yes Respiratory Function Stable: Yes Airway Patent: Yes Cardiovascular Function Stable: Yes Hydration Status Stable: Yes Pain Control Satisfactory: Yes Nausea and Vomiting Control Satisfactory: Yes Mental Status Recovered: Yes Vital Signs: Last Vital Signs Temp 36.3 C 05/08/20 07:47 Pulse 92 05/08/20 09:46 Resp 13 05/08/20 09:46 BP 113/74 05/08/20 09:46 Pulse Ox 97 05/08/20 09:46 - COMMENTS/OBSERVATIONS Free Text/Narrative:: No anesthesia problems
--- NOTE | 2020-05-09 10:14 | OR ---
SURGEON: LULU DEL REAL MD DATE OF PROCEDURE: 05/08/2020 PREOPERATIVE DIAGNOSIS: Change in bowel habits. POSTOPERATIVE DIAGNOSES: 1. Colon polyp at about 70 cm. 2. Internal hemorrhoids. 3. Diverticulosis, both right and left-sided. PROCEDURES PERFORMED: 1. Colonoscopy. 2. Hot snare polypectomy. 3. Random biopsies of colon. ANESTHESIA: General. EXTENT OF COLONOSCOPY: To the cecum. WITHDRAWAL TIME: 13 minutes. BOWEL PREP: Very good. LIMITATIONS: None. REASON FOR PROCEDURE: The patient is a pleasant 59-year-old gentleman. He says his last colonoscopy was 10 years ago. He did have colon polyps removed at that time. He denies any blood in the stool. He denies any family history of colon cancer, though his medical record says he has a father with colon cancer. The patient says, over the last couple of months, he started having change in the bowel habits, noted them becoming smaller and more clumpy and broken apart. The patient has had normal bowel movements between this. He is also having issues with increased shortness of breath and what he feels to be bloating and swelling in the ankle, and he is working with his primary care provider for this. PROCEDURE IN DETAIL: Physical examination was performed. The patient had some slight wheezing and did do a nebulizer treatment this morning, he says on his own. The major risks and benefits associated with the procedure were explained to the patient in detail. The patient verbalized understanding of the same. The patient was then connected to appropriate monitoring, an IV started, EKG, pulse, pulse oximetry, and made preparation for monitoring throughout the procedure. Preoperative time- out was performed. Sedation was provided by anesthesiologist. The patient was placed in left lateral decubitus position. Sedation was began. After an adequate sedation was achieved, digital rectal exam was performed. No rectal masses or polyps were felt. Now, a well-lubricated Olympus colonoscope was entered in the rectum and advanced under direct visualization to the level of the cecum. Cecum was identified by both visual and anatomic landmarks. Scope taken to level of the cecal cap. Scope was then slowly withdrawn in subsequent fashion revealing normal color, texture, anatomy, and integrity of the mucosa from the cecum to the anal canal. The patient did have a polyp at right about 70 cm. This appeared to be right around the ascending and hepatic flexure, and this was removed with hot snare polypectomy. Mucosal defect was closed with a Resolution clip. The scope was continued to be withdrawn. The patient did have some diverticulosis seen in his right and left colon. Throughout the colon, the patient also was noted that the mucosa looked a little irritated with a slightly more prominent erythema throughout the colon although slightly more in the cecum and ascending colon. Several random biopsies were taken throughout the colon. This also helped to look for any microscopic colitis with his change in bowel habits. At 10 cm, the patient had what looked like a slight bluish marking, could be an old ink marking. It was hard to picture on the picture I took, but it was a subtle underlying blue tenting that again looked like previous inking. Scope was retroflexed in the rectum. He did have some noninflamed internal hemorrhoids. Scope was then completely removed, and the procedure was terminated. ENDOSCOPIC DIAGNOSES: 1. Diverticulosis, both right and left-sided. 2. Colon polyp. 3. Internal hemorrhoids, noninflamed. RECOMMENDATIONS: The patient is to follow up with me in the clinic for pathology. His next colonoscopy will depend on pathology, but most likely another one in 3 to 5 years, sooner if he develops signs or symptoms, such as change in bowel habits or blood in stool. ALISA / ABDI /[id number]
== END 2020-05-08 10:40 | disposition home or self-care (01) ==
LOC: MW.SDS 07:06
PROVIDERS: ATTEND Surgery
DX: D12.2 Benign neoplasm of ascending colon (principal); K57.30 Diverticulosis of large intestine without perforation or abscess without bleeding; K64.8 Other hemorrhoids; E78.00 Pure hypercholesterolemia, unspecified; I10 Essential (primary) hypertension; F17.210 Nicotine dependence, cigarettes, uncomplicated; J44.9 Chronic obstructive pulmonary disease, unspecified; Z98.890 Other specified postprocedural states; Z86.010 Personal history of colon polyps; Z79.82 Long term (current) use of aspirin; Z79.899 Other long term (current) drug therapy
CPT/HCPCS: 45380; 45385; J2001; J2250; J2704; J3010; J7120; 00812; 88305

== ENCOUNTER 2020-05-16 18:32 | Emergency (ER) | payer SELFPAY ==
[2020-05-16] MEDS ORDERED: Albuterol/Ipratropium 3.0-0.5 MG/3 ML Neb Soln NEB ONE (19:20)
[2020-05-16] MEDS ORDERED: predniSONE 20 MG Tab PO ONE (19:25)
[2020-05-16] MEDS ORDERED: Albuterol 8 GM Inhaler INH ONE ×2 (19:25→19:31)
--- NOTE | 2020-05-16 19:27 | EDM.PDOC ---
ED HPI GENERAL MEDICAL PROBLEM - General Chief Complaint: Respiratory Problem Stated Complaint: DIFFICULTY BREATHING, COPD Time Seen by Provider: 05/16/20 19:10 - History of Present Illness INITIAL COMMENTS - FREE TEXT/NARRATIVE: History of present illness: [] Patient got a flu shot 2 weeks ago. Then he developed some flulike symptoms. He started having significant bronchospasm this morning. He is done this in the past and requires inhalers nebulizers and steroids. He does not have any prednisone at this time. The patient shortness of breath is mild at rest and worse with exertion. He does not have any fever has not been exposed to COVID and had a negative test 2 weeks ago. Review of systems: As per history of present illness and below otherwise all systems reviewed and negative. Past medical history: As per history of present illness and as reviewed below otherwise noncontributory. Surgical history: As per history of present illness and as reviewed below otherwise noncontributory. Social history: No reported history of drug or alcohol abuse. Family history: As per history of present illness and as reviewed below otherwise noncontributory. Physical exam: Constitutional - well developed, well-nourished and in no acute distress HEENT - normocephalic, no evidence of trauma - external nose and mouth normal - no mass in neck and no JVD - mucosae moist EYES - full EOM, PERRL, no icterus - no evidence of inflammation, injection, or drainage Respiratory - no respiratory distress, equal bilateral expansion, with wheezes throughout, diminished apical lung sounds and prolonged expiratory phase of respiration. Uses accessory muscles sparingly. Cardiovascular - Regular Rhythm with S1 and S2 appreciated and no murmur, gallop or rub. GI - abdomen soft without distension or organomegaly - normal bowel sounds - no guard or rebound Musculoskeletal no gross deformity of long bones or joints - no tenderness, swelling or edema Neurologic - Alert and oriented times four - CN II-XII grossly intact - motor sensory and coordination symmetrically normal Psychiatric - appropriate mood and affect with normal thought content Hematologic - No petechiae or purpura - mucosa appropriate color and sclera not pale - normal nail bed color and refill Integument - no rash or evidence of trauma - normal turgor Diagnostics: [] Therapeutics: [] Impression: [] Plan: [] Definitive disposition and diagnosis as appropriate pending reevaluation and review of above. - Related Data Allergies Allergy/AdvReac Type Severity Reaction Status Date / Time No Known Allergies Allergy Verified 05/16/20 18:57 Home Meds: Home Meds Albuterol Sulfate [Proair Hfa] 8.5 gm IH QID PRN #1 hfa.aer.ad 08/18/18 [Rx] Aspirin 81 mg PO DAILY #30 tab.chew 03/15/20 [Rx] Furosemide [Lasix] 20 mg PO DAILY 05/04/20 [History] Fluticasone Propion/Salmeterol [Fluticasone-Salmeterol 250-50] 1 puff INH BID 05/05/20 [History] Ipratropium/Albuterol Sulfate [Iprat-Albut 0.5-3(2.5) mg/3 ml] 1 dose NEB ASDIRECTED PRN 05/05/20 [History] amLODIPine Besylate [Amlodipine Besylate] 5 mg PO DAILY 05/05/20 [History] atorvaSTATin Calcium [Atorvastatin Calcium] 40 mg PO DAILY 05/05/20 [History] guaiFENesin [Mucinex] 2 tab PO BID 05/05/20 [History] predniSONE [Prednisone] 20 mg PO DAILY 05/05/20 [History] Past Medical History HEENT History: Reports: Other (See Below) Other HEENT History: wears glasses, has top partial Cardiovascular History: Reports: High Cholesterol, Hypertension, Other (See Below) Other Cardiovascular History: have been told he "may have had a mild heart attack", on lasix for lower extremity edema, also states he possibly had blood clots to his lower extremities and was treated with blood thinners Respiratory History: Reports: Asthma, COPD, SOB Gastrointestinal History: Reports: Colon Polyp, Other (See Below) Other Gastrointestinal History: states occasional reflux Genitourinary History: Reports: None Musculoskeletal History: Reports: None Neurological History: Reports: None Psychiatric History: Reports: None Endocrine/Metabolic History: Reports: None Hematologic History: Reports: None Immunologic History: Reports: None Oncologic (Cancer) History: Reports: None Dermatologic History: Reports: Psoriasis - Infectious Disease History Infectious Disease History: Reports: None - Past Surgical History Head Surgeries/Procedures: Reports: None HEENT Surgical History: Reports: None Cardiovascular Surgical History: Reports: None Respiratory Surgical History: Reports: None GI Surgical History: Reports: Colonoscopy Male Surgical History: Reports: None Endocrine Surgical History: Reports: None Neurological Surgical History: Reports: None Musculoskeletal Surgical History: Reports: None Oncologic Surgical History: Reports: None Dermatological Surgical History: Reports: None Social & Family History - Family History Family Medical History: Noncontributory - Tobacco Use Smoking Status *Q: Current Every Day Smoker Years of Tobacco use: 15 Packs/Tins Daily: 0.5 - Caffeine Use Caffeine Use: Reports: Energy Drinks - Recreational Drug Use Recreational Drug Use: No ED ROS GENERAL - Review of Systems Review Of Systems: Comprehensive ROS is negative, except as noted in HPI. ED EXAM, GENERAL - Physical Exam Exam: See Below Free Text/Narrative:: My physical exam as in the H&P Course - Vital Signs Text/Narrative:: 184 patient was markedly improved and wanted to be discharged. He will be discharged with his inhaler and prescription for prednisone to taper after 60 mg daily for 5 days Last Recorded V/S: Last Vital Signs Temp 97.4 F 05/16/20 18:48 Pulse 53 L 05/16/20 18:48 Resp 22 H 05/16/20 18:48 BP 128/94 H 05/16/20 18:48 Pulse Ox 93 L 05/16/20 18:48 - Orders/Labs/Meds Orders: Active Orders 24 hr Category Date Time Status RT Post Treatment Assessment [RC] Click to Edit Care 05/16/20 19:26 Active RT Post Treatment Assessment [RC] Click to Edit Care 05/16/20 19:32 Active RT Pre-Treatment Assessment [RC] Click to Edit Care 05/16/20 19:26 Active RT Pre-Treatment Assessment [RC] Click to Edit Care 05/16/20 19:32 Active Meds: Medications Discontinued Medications Generic Name Dose Route Start Last Admin Trade Name Freq PRN Reason Stop Dose Admin Albuterol 18 gm 05/16/20 19:25 05/16/20 19:35 Ventolin Hfa INH 05/16/20 19:26 1 puff ONETIME ONE Administration Albuterol Confirm 05/16/20 19:29 05/16/20 19:36 Ventolin Hfa Administered 05/16/20 19:30 Not Given Dose 18 gm .ROUTE .STK-MED ONE Albuterol 18 gm 05/16/20 19:31 05/16/20 19:35 Ventolin Hfa INH 05/16/20 19:32 Not Given ONETIME ONE Albuterol/Ipratropium 3 ml 05/16/20 19:20 05/16/20 19:36 Duoneb 3.0-0.5 Mg/3 Ml NEB 05/16/20 19:21 Not Given ONETIME ONE Prednisone 60 mg 05/16/20 19:25 05/16/20 19:31 Prednisone PO 05/16/20 19:26 60 mg ONETIME ONE Administration Departure - Departure Time of Disposition: 19:50 Disposition: Home, Self-Care 01 Condition: Good Clinical Impression: Acute asthma - Discharge Information Instructions: Asthma, Adult Referrals: PCP,None [Primary Care Provider] - Forms: ED Department Discharge Additional Instructions: [facility] - Primary Care [address] [place] [id number] [id number] The following information is given to patients seen in the emergency department who are being discharged to home. This information is to outline your options for follow-up care. We provide all patients seen in our emergency department with a follow-up referral. The need for follow-up, as well as the timing and circumstances, are variable depending upon the specifics of your emergency department visit. If you don't have a primary care physician on staff, we will provide you with a referral. We always advise you to contact your personal physician following an emergency department visit to inform them of the circumstance of the visit and for follow-up with them and/or the need for any referrals to a consulting specialist. The emergency department will also refer you to a specialist when appropriate. This referral assures that you have the opportunity for follow-up care with a specialist. All of these measure are taken in an effort to provide you with optimal care, which includes your follow-up. Under all circumstances we always encourage you to contact your private physician who remains a resource for coordinating your care. When calling for follow-up care, please make the office aware that this follow-up is from your recent emergency room visit. If for any reason you are refused follow-up, please contact the [facility] Emergency Department at and asked to speak to the emergency department charge nurse. Sepsis Event Note (ED) - Evaluation Sepsis Screening Result: No Definite Risk - Focused Exam Vital Signs: Vital Signs Temp Pulse Resp BP Pulse Ox 05/16/20 18:48 97.4 F 53 L 22 H 128/94 H 93 L - My Orders Last 24 Hours: My Active Orders 05/16/20 19:26 RT Post Treatment Assessment [RC] Click to Edit RT Pre-Treatment Assessment [RC] Click to Edit 05/16/20 19:32 RT Post Treatment Assessment [RC] Click to Edit RT Pre-Treatment Assessment [RC] Click to Edit - Assessment/Plan Last 24 Hours: My Active Orders 05/16/20 19:26 RT Post Treatment Assessment [RC] Click to Edit RT Pre-Treatment Assessment [RC] Click to Edit 05/16/20 19:32 RT Post Treatment Assessment [RC] Click to Edit RT Pre-Treatment Assessment [RC] Click to Edit
[2020-05-16] MEDS ORDERED: Albuterol HFA 18 Gm Inhaler ONE (19:29)
== END 2020-05-16 19:55 | disposition home or self-care (01) ==
LOC: MW.ED 18:32
DX: J45.901 Unspecified asthma with (acute) exacerbation (principal); E78.00 Pure hypercholesterolemia, unspecified; I10 Essential (primary) hypertension; F17.210 Nicotine dependence, cigarettes, uncomplicated; Z79.899 Other long term (current) drug therapy; Z79.82 Long term (current) use of aspirin
CPT/HCPCS: 99284; A9270; 99283; J3535-GY

== ENCOUNTER 2020-05-28 19:12 | Emergency (ER) | payer SELFPAY ==
[2020-05-28] MEDS ORDERED: Albuterol 8 GM Inhaler INH ONE (19:32)
[2020-05-28] MEDS ORDERED: predniSONE 20 MG Tab PO ONE (19:33)
[2020-05-28] MEDS ORDERED: Albuterol HFA 18 Gm Inhaler ONE (19:49)
--- NOTE | 2020-05-28 19:49 | EDM.PDOC ---
ED HPI GENERAL MEDICAL PROBLEM - General Chief Complaint: Respiratory Problem Stated Complaint: MEDICATION Time Seen by Provider: 05/28/20 19:15 - History of Present Illness INITIAL COMMENTS - FREE TEXT/NARRATIVE: History of present illness: The patient is here for several days of short of breath and cough. He has no fever. He has no exposure to COVID-19. I saw him on 16 May and he responded well to inhaler with albuterol and prednisone 60 mg a day for 5 days and then taper. The patient unable to fill the prednisone it instantly [facility] where he wants to fill his medicines now. He went to a function test on the eighth of that month and his pulmonary function test showed he had severe COPD that responded well to bronchodilators. [] Review of systems: As per history of present illness and below otherwise all systems reviewed and negative. Past medical history: As per history of present illness and as reviewed below otherwise noncontributory. Surgical history: As per history of present illness and as reviewed below otherwise noncontributory. Social history: No reported history of drug or alcohol abuse. Family history: As per history of present illness and as reviewed below otherwise noncontri butory. Physical exam: Constitutional - well developed, well-nourished and in no acute distress HEENT - normocephalic, no evidence of trauma - external nose and mouth normal - no mass in neck and no JVD - mucosae moist EYES - full EOM, PERRL, no icterus - no evidence of inflammation, injection, or drainage Respiratory - no respiratory distress, equal bilateral expansion, lungs throughout with scattered wheezes and slight expiratory prolongation. Cardiovascular - Regular Rhythm with S1 and S2 appreciated and no murmur, gallop or rub. GI - abdomen soft without distension or organomegaly - normal bowel sounds - no guard or rebound Musculoskeletal no gross deformity of long bones or joints - no tenderness, swelling or edema Neurologic - Alert and oriented times four - CN II-XII grossly intact - motor sensory and coordination symmetrically normal Psychiatric - appropriate mood and affect with normal thought content Hematologic - No petechiae or purpura - mucosa appropriate color and sclera not pale - normal nail bed color and refill Integument - no rash or evidence of trauma - normal turgor Diagnostics: [] Therapeutics: [] Impression: [] Plan: [] Definitive disposition and diagnosis as appropriate pending reevaluation and review of above. - Related Data Allergies Allergy/AdvReac Type Severity Reaction Status Date / Time No Known Allergies Allergy Verified 05/28/20 19:20 Home Meds: Home Meds Albuterol Sulfate [Proair Hfa] 8.5 gm IH QID PRN #1 hfa.aer.ad 08/18/18 [Rx] Aspirin 81 mg PO DAILY #30 tab.chew 03/15/20 [Rx] Fluticasone Propion/Salmeterol [Fluticasone-Salmeterol 250-50] 1 puff INH BID 05/05/20 [History] Ipratropium/Albuterol Sulfate [Iprat-Albut 0.5-3(2.5) mg/3 ml] 1 dose NEB ASDIRECTED PRN 05/05/20 [History] amLODIPine Besylate [Amlodipine Besylate] 5 mg PO DAILY 05/05/20 [History] atorvaSTATin Calcium [Atorvastatin Calcium] 40 mg PO DAILY 05/05/20 [History] guaiFENesin [Mucinex] 2 tab PO BID 05/05/20 [History] Albuterol [Proventil HFA] 2 puff INH Q4H PRN #1 inhaler 05/28/20 [Rx] predniSONE [Prednisone] 60 mg PO DAILY #27 tablet 05/28/20 [Rx] Past Medical History HEENT History: Reports: Other (See Below) Other HEENT History: wears glasses, has top partial Cardiovascular History: Reports: High Cholesterol, Hypertension, Other (See Below) Other Cardiovascular History: have been told he "may have had a mild heart attack", on lasix for lower extremity edema, also states he possibly had blood clots to his lower extremities and was treated with blood thinners Respiratory History: Reports: Asthma, COPD, SOB Gastrointestinal History: Reports: Colon Polyp, Other (See Below) Other Gastrointestinal History: states occasional reflux Genitourinary History: Reports: None Musculoskeletal History: Reports: None Neurological History: Reports: None Psychiatric History: Reports: None Endocrine/Metabolic History: Reports: None Hematologic History: Reports: None Immunologic History: Reports: None Oncologic (Cancer) History: Reports: None Dermatologic History: Reports: Psoriasis - Infectious Disease History Infectious Disease History: Reports: None - Past Surgical History Head Surgeries/Procedures: Reports: None HEENT Surgical History: Reports: None Cardiovascular Surgical History: Reports: None Respiratory Surgical History: Reports: None GI Surgical History: Reports: Colonoscopy Male Surgical History: Reports: None Endocrine Surgical History: Reports: None Neurological Surgical History: Reports: None Musculoskeletal Surgical History: Reports: None Oncologic Surgical History: Reports: None Dermatological Surgical History: Reports: None Social & Family History - Family History Family Medical History: Noncontributory - Tobacco Use Smoking Status *Q: Current Every Day Smoker Years of Tobacco use: 20 Packs/Tins Daily: 1 - Caffeine Use Caffeine Use: Reports: Energy Drinks - Recreational Drug Use Recreational Drug Use: No ED ROS GENERAL - Review of Systems Review Of Systems: Comprehensive ROS is negative, except as noted in HPI. ED EXAM, GENERAL - Physical Exam Exam: See Below Free Text/Narrative:: My physical exam as in the HPI Course - Vital Signs Text/Narrative:: The patient was given a bronchodilator treatment with HFA in the department. Once again he responded well to bronchodilator. Patient discharged in satisfactory condition. Last Recorded V/S: Last Vital Signs Temp 98 F 05/28/20 19:24 Pulse 67 05/28/20 19:24 Resp 18 05/28/20 19:24 BP 105/67 05/28/20 19:24 Pulse Ox 92 L 05/28/20 19:24 - Orders/Labs/Meds Orders: Active Orders 24 hr Category Date Time Status RT Post Treatment Assessment [RC] Click to Edit Care 05/28/20 19:32 Active RT Pre-Treatment Assessment [RC] Click to Edit Care 05/28/20 19:32 Active Meds: Medications Discontinued Medications Generic Name Dose Route Start Last Admin Trade Name Halima PRN Reason Stop Dose Admin Albuterol 18 gm 05/28/20 19:32 05/28/20 19:51 Ventolin Hfa INH 05/28/20 19:33 2 puff ONETIME ONE Administration Albuterol Confirm 05/28/20 19:49 Ventolin Hfa Administered 05/28/20 19:50 Dose 18 gm .ROUTE .STK-MED ONE Prednisone 60 mg 05/28/20 19:33 05/28/20 19:50 Prednisone PO 05/28/20 19:34 60 mg ONETIME ONE Administration Departure - Departure Time of Disposition: 20:04 Disposition: Home, Self-Care 01 Condition: Good Clinical Impression: Asthma exacerbation with COPD (chronic obstructive pulmonary disease) - Discharge Information Prescriptions: predniSONE [Prednisone] 60 mg PO DAILY #27 tablet Albuterol [Proventil HFA] 2 puff INH Q4H PRN #1 inhaler PRN Reason: Wheezing Instructions: Chronic Obstructive Pulmonary Disease, [id number] Referrals: Vannesa Miller PA [Primary Care Provider] - Forms: ED Department Discharge Additional Instructions: The following information is given to patients seen in the emergency department who are being discharged to home. This information is to outline your options for follow-up care. We provide all patients seen in our emergency department with a follow-up referral. The need for follow-up, as well as the timing and circumstances, are variable depending upon the specifics of your emergency department visit. If you don't have a primary care physician on staff, we will provide you with a referral. We always advise you to contact your personal physician following an emergency department visit to inform them of the circumstance of the visit and for follow-up with them and/or the need for any referrals to a consulting specialist. The emergency department will also refer you to a specialist when appropriate. This referral assures that you have the opportunity for follow-up care with a specialist. All of these measure are taken in an effort to provide you with optimal care, which includes your follow-up. Under all circumstances we always encourage you to contact your private physician who remains a resource for coordinating your care. When calling for follow-up care, please make the office aware that this follow-up is from your recent emergency room visit. If for any reason you are refused follow-up, please contact the [facility] Emergency Department at and asked to speak to the emergency department charge nurse. [facility] - Primary Care [address] [place] [id number] [address] Sepsis Event Note (ED) - Evaluation Sepsis Screening Result: No Definite Risk - Focused Exam Vital Signs: Vital Signs Temp Pulse Resp BP Pulse Ox 05/28/20 19:24 98 F 67 18 105/67 92 L - My Orders Last 24 Hours: My Active Orders 05/28/20 19:32 RT Post Treatment Assessment [RC] Click to Edit RT Pre-Treatment Assessment [RC] Click to Edit - Assessment/Plan Last 24 Hours: My Active Orders 05/28/20 19:32 RT Post Treatment Assessment [RC] Click to Edit RT Pre-Treatment Assessment [RC] Click to Edit
== END 2020-05-28 20:16 | disposition home or self-care (01) ==
LOC: MW.ED 19:12
DX: J44.1 Chronic obstructive pulmonary disease with (acute) exacerbation (principal); F17.210 Nicotine dependence, cigarettes, uncomplicated; E78.00 Pure hypercholesterolemia, unspecified; I10 Essential (primary) hypertension; Z79.82 Long term (current) use of aspirin; Z79.899 Other long term (current) drug therapy
CPT/HCPCS: 99284; A9270; 99283; J3535-GY

== ENCOUNTER 2020-07-07 08:15 | Emergency (ER) | payer SELFPAY ==
[2020-07-07] MEDS ORDERED: Sodium Chloride 0.9% 2.5 ML Syringe FLUSH PRN (08:17)
[2020-07-07] MEDS ORDERED: Sodium Chloride 0.9% 10 ML Syringe FLUSH PRN (08:17)
--- NOTE | 2020-07-07 08:20 | EDM.PDOC ---
ED HPI GENERAL MEDICAL PROBLEM - General Chief Complaint: Respiratory Problem Stated Complaint: TROUBLE BREATHING Time Seen by Provider: 07/07/20 08:16 Source of Information: Reports: Patient, Old Records History Limitations: Reports: No Limitations - History of Present Illness INITIAL COMMENTS - FREE TEXT/NARRATIVE: This is a 59-year-old male with a past medical history of severe COPD, asthma, NSTEMI, cardiomegaly, and cocaine misuse, hyperlipidemia presenting with shortness of breath. Several visits to the emergency department over the past few weeks for shortness of breath. Was last here on 05/28 for shortness of breath and cough. Today presents to the emergency department complaining of 3 days of gradually worsening shortness of breath. He states that he thinks he is having another COPD exacerbation. He has been using his home albuterol nebulizer machine x4 this morning without much relief. Complains of a mild cough. Denies any fever chest discomfort, hemoptysis, or new lower extremity swelling. Does have remote history of a DVT but is not on any anticoagulation. Denies any nausea, vomiting, or other gastrointestinal symptoms. Denies any recent cocaine use. ROS: A 10-point review of systems was negative, except as noted in the HPI (or in the ROS section of this note). Past medical history: Reviewed, no additional pertinent history. Surgical history: Reviewed in system, no additional pertinent history. Social history: Reviewed in system, no additional pertinent history. Family history: Reviewed in system, no additional pertinent history. PHYSICAL EXAM Vital signs reviewed. Nursing notes reviewed. Constitutional: Awake, alert, non-distressed. Head: Normocephalic, atraumatic. Eyes: EOMI, conjunctiva normal, no discharge, no scleral icterus. Ears, Nose, Throat: External ears and nose normal, moist oral mucosa. Cardiovascular: 2+ radial pulse, capillary refill less than 2 seconds. 1+ lower extremity edema bilaterally, symmetric. Pulmonary: Diffuse wheezing throughout all lung louis, normal work of breathing, no accessory muscle use. Speaking in full sentences. Abdomen/GI: Soft, nontender, nondistended, no guarding or rigidity, no masses. Musculoskeletal: No deformities. Integumentary: Appropriate color for ethnicity, warm, dry, no pallor or prabha dice, no rash. Neurologic: Alert, answering questions appropriately, normal speech, no facial droop, moving all extremities well. Psychiatric: Appropriate mood and affect, normal thought process. This patient was seen and evaluated during the 2019 SARS-CoV-2 novel coronavirus pandemic period. Community viral transmission is ongoing at time of this encounter and the emergency department is operating under pandemic response procedures. - Related Data Allergies Allergy/AdvReac Type Severity Reaction Status Date / Time No Known Allergies Allergy Verified 07/07/20 08:19 Home Meds: Home Meds Albuterol Sulfate [Proair Hfa] 8.5 gm IH QID PRN #1 hfa.aer.ad 08/18/18 [Rx] Aspirin 81 mg PO DAILY #30 tab.chew 03/15/20 [Rx] Fluticasone Propion/Salmeterol [Fluticasone-Salmeterol 250-50] 1 puff INH BID 05/05/20 [History] Ipratropium/Albuterol Sulfate [Iprat-Albut 0.5-3(2.5) mg/3 ml] 1 dose NEB ASDIRECTED PRN 05/05/20 [History] amLODIPine Besylate [Amlodipine Besylate] 5 mg PO DAILY 05/05/20 [History] atorvaSTATin Calcium [Atorvastatin Calcium] 40 mg PO DAILY 05/05/20 [History] guaiFENesin [Mucinex] 2 tab PO BID 05/05/20 [History] Albuterol [Proventil HFA] 2 puff INH Q4H PRN #1 inhaler 05/28/20 [Rx] predniSONE [Prednisone] 60 mg PO DAILY #27 tablet 05/28/20 [Rx] Fluticasone Propionate [Flovent] 50 mcg IH BID #1 blst.w.dev 07/07/20 [Rx] predniSONE [Prednisone] 60 mg PO DAILY 4 Days #12 tablet 07/07/20 [Rx] Past Medical History HEENT History: Reports: Other (See Below) Other HEENT History: wears glasses, has top partial Cardiovascular History: Reports: High Cholesterol, Hypertension, Other (See Below) Other Cardiovascular History: have been told he "may have had a mild heart attack", on lasix for lower extremity edema, also states he possibly had blood clots to his lower extremities and was treated with blood thinners Respiratory History: Reports: Asthma, COPD, SOB Gastrointestinal History: Reports: Colon Polyp, Other (See Below) Other Gastrointestinal History: states occasional reflux Genitourinary History: Reports: None Musculoskeletal History: Reports: None Neurological History: Reports: None Psychiatric History: Reports: None Endocrine/Metabolic History: Reports: None Hematologic History: Reports: None Immunologic History: Reports: None Oncologic (Cancer) History: Reports: None Dermatologic History: Reports: Psoriasis - Infectious Disease History Infectious Disease History: Reports: None - Past Surgical History Head Surgeries/Procedures: Reports: None HEENT Surgical History: Reports: None Cardiovascular Surgical History: Reports: None Respiratory Surgical History: Reports: None GI Surgical History: Reports: Colonoscopy Male Surgical History: Reports: None Endocrine Surgical History: Reports: None Neurological Surgical History: Reports: None Musculoskeletal Surgical History: Reports: None Oncologic Surgical History: Reports: None Dermatological Surgical History: Reports: None Social & Family History - Family History Family Medical History: No Pertinent Family History - Caffeine Use Caffeine Use: Reports: Energy Drinks ED ROS GENERAL - Review of Systems Review Of Systems: See Below ED EXAM, GENERAL - Physical Exam Exam: See Below #1 Interpretation EKG Interpretation Comments: 12-Lead ECG Interpretation Acquired: 8:21 AM Rhythm: Sinus tachycardia Rate: 112 bpm Spring: Right axis deviation, interventricular conduction delay Intervals: Normal Ectopy: PVCs RV Strain: No obvious RV strain pattern. ST Segments/T-Waves: No notable changes Acute Ischemic Changes: None apparent Interpretation: No STEMI Compared to most recent ECG from 03/21/2020, no significant changes although we cannot adequately visualize the enterprise beats of V4 through 6 due to PVCs, will repeat ECG in about 30 minutes. #2 Interpretation EKG Interpretation Comments: 12-Lead ECG Interpretation Acquired: 8:42 AM Rhythm: Sinus tachycardia with ventricular bigeminy Rate: 108 bpm Spring: Normal Intervals: Left bundle branch block Ectopy: PVCs RV Strain: No obvious RV strain pattern. ST Segments/T-Waves: No notable changes Acute Ischemic Changes: None apparent Interpretation: No STEMI Course - Vital Signs Text/Narrative:: Patient hemodynamically stable, afebrile, well-appearing, looks nontoxic. Differential diagnosis includes but is not limited to: CHF, ACS, PE, pneumonia, pneumothorax, asthma exacerbation, COPD exacerbation, pleural effusion, pericardial effusion, pericarditis, viral URI, influenza, bronchitis, airway foreign body, anxiety state, and many others. Symptoms seem consistent with a COPD exacerbation based on what he is describing and how I have seen him in the past. I have a low suspicion for pneumonia at this point given lack of fever or constitutional symptoms. His leg swelling seems to be at baseline so a low suspicion for congestive heart failure. I have low suspicion for pulmonary embolism at this point given that his sats are 99%, he is not tachycardic, he has no new asymmetric lower extremity swelling or pain, no hemoptysis, he loud wheezing on exam, etc. His twelve-lead EKG looks nonischemic and he is not having any chest pain at the moment. Lung sounds are symmetric and I have low suspicion for pneumothorax. 842: We are going to give him some DuoNeb treatments along with oral prednisone, labs, get a chest x-ray, and perform rapid COVID test. 916: CBC shows normal cell lines. Metabolic panel shows creatinine elevation of 1.6, which is mildly worse than baseline. Electrolytes are reassuring. Mild hyperglycemia. AST and ALT mildly elevated at 43 and 86. Troponin is elevated 0.117. Covid testing is negative. Chest x-ray to me looks grossly normal except for cardiomegaly, we are waiting for radiology read. 927: I did speak with the patient about his elevated troponin. This is not unusual for him. I have seen him in the past for COPD exacerbation with elevated troponin. He typically signs of the hospital AGAINST MEDICAL ADVICE after we try to get him to stay for work-up of possible NSTEMI. This is also the case this time. I did discuss that I recommended he stay in the hospital for cardiology evaluation and to have his troponins trended. He likely has some ischemic heart disease and I think this is probably exacerbated by a COPD exacerbation. He wants to leave the hospital AGAINST MEDICAL ADVICE. I explained that his condition could worsen or he could as a result of this decision, he understands and has no questions. He is agreeable to a dose of enoxaparin, which is his usual route of treatment in this situation. We are also going to give him 2 more albuterol treatments and then I anticipate that he will be leaving the ED AGAINST MEDICAL ADVICE. Chest x-rays are read as clear. On reevaluation, the patient is feeling better after getting additional breathing treatments. He is adamantly refusing hospitalization or further work- up despite his elevated troponin level. This is also happened in the past several times when he comes to our emergency department. He will be signing out of the emergency department AGAINST MEDICAL ADVICE. He understands the risks of refusing treatment including . I recommended he follow-up closely with his primary medical doctor in the family medicine clinic. I did prescribe some oral steroids and an inhaled corticosteroid medication given his severe COPD. He was counseled to return the emergency department immediately if his symptoms worsened or if he changed his mind. Disposition: Left AGAINST MEDICAL ADVICE Last Recorded V/S: Last Vital Signs Temp 37.0 C 07/07/20 08:19 Pulse 129 H 07/07/20 10:00 Resp BP 126/87 07/07/20 10:00 Pulse Ox 98 07/07/20 10:00 - Orders/Labs/Meds Orders: Active Orders 24 hr Category Date Time Status CORONAVIRUS COVID-19 PCR PHL Stat Lab 07/07/20 08:42 Received Saline Lock Insert [OM.PC] Stat Oth 07/07/20 08:17 Ordered Labs: Laboratory Tests 07/07/20 07/07/20 07/07/20 Range/Units 08:33 08:33 08:42 WBC 7.23 (4.0-11.0) K/uL RBC 4.59 (4.50-5.90) M/uL Hgb 14.9 (13.0-17.0) g/dL Hct 44.8 (38.0-50.0) % MCV 97.6 (80.0-98.0) fL MCH 32.5 H (27.0-32.0) pg MCHC 33.3 (31.0-37.0) g/dL RDW Std Deviation 58.1 (28.0-62.0) fl RDW Coeff of Chuy 16 H (11.0-15.0) % Plt Count 191 (150-400) K/uL MPV 10.80 (7.40-12.00) fL Neut % (Auto) 88.3 H (48.0-80.0) % Lymph % (Auto) 8.2 L (16.0-40.0) % Kingfisher % (Auto) 3.3 (0.0-15.0) % Eos % (Auto) 0.1 (0.0-7.0) % Baso % (Auto) 0.1 (0.0-1.5) % Neut # (Auto) 6.4 H (1.4-5.7) K/uL Lymph # (Auto) 0.6 (0.6-2.4) K/uL Kingfisher # (Auto) 0.2 (0.0-0.8) K/uL Eos # (Auto) 0.0 (0.0-0.7) K/uL Baso # (Auto) 0.0 (0.0-0.1) K/uL Nucleated RBC % 0.0 /100WBC Nucleated RBCs # 0 K/uL Sodium 141 (136-148) mmol/L Potassium 4.3 (3.5-5.1) mmol/L Chloride 105 (98-107) mmol/L Carbon Dioxide 28.2 (21.0-32.0) mmol/L BUN 26 H (7.0-18.0) mg/dL Creatinine 1.6 H (0.8-1.3) mg/dL Est Cr Clr Drug Dosing 50.06 mL/min Estimated GFR (MDRD) 53.5 ml/min Glucose 147 H (74-106) mg/dL Calcium 8.5 (8.5-10.1) mg/dL Total Bilirubin 0.6 (0.2-1.0) mg/dL AST 43 H (15-37) IU/L ALT 86 H (14-63) IU/L Alkaline Phosphatase 58 (46-116) U/L Troponin I 0.117 H* (0.000-0.056) ng/mL Total Protein 6.6 (6.4-8.2) g/dL Albumin 3.5 (3.4-5.0) g/dL Globulin 3.1 (2.6-4.0) g/dL Albumin/Globulin Ratio 1.1 (0.9-1.6) SARS CoV-2 RNA Rapid SCOTT NEGATIVE (NEGATIVE) Meds: Medications Discontinued Medications Generic Name Dose Route Start Last Admin Trade Name Freq PRN Reason Stop Dose Admin Albuterol 5 mg 07/07/20 09:25 07/07/20 09:38 Proventil Neb Soln NEB 07/07/20 09:26 5 mg ONETIME ONE Administration Albuterol/Ipratropium 6 ml 07/07/20 08:24 07/07/20 08:32 Duoneb 3.0-0.5 Mg/3 Ml NEB 07/07/20 08:25 6 ml ONETIME ONE Administration Albuterol/Ipratropium Confirm 07/07/20 08:25 07/07/20 08:32 Duoneb 3.0-0.5 Mg/3 Ml Administered 07/07/20 08:26 Not Given Dose 6 ml .ROUTE .STK-MED ONE Enoxaparin Sodium 85 mg 07/07/20 09:30 07/07/20 09:46 Lovenox 1 mg/kg (85 mg) 07/07/20 09:31 85 mg SUBCUT Administration ONETIME ONE Prednisone 60 mg 07/07/20 08:37 07/07/20 09:12 Prednisone PO 07/07/20 08:38 60 mg ONETIME ONE Administration Sodium Chloride 10 ml 07/07/20 08:17 07/07/20 09:13 Saline Flush FLUSH 10 ml ASDIRECTED PRN Administration Keep Vein Open Sodium Chloride 2.5 ml 07/07/20 08:17 07/07/20 09:13 Saline Flush FLUSH 2.5 ml ASDIRECTED PRN Administration Keep Vein Open Departure - Departure Time of Disposition: 10:15 Disposition: Against Medical Advice 07 Condition: Good Clinical Impression: COPD exacerbation, Elevated troponin, Left against medical advice - Discharge Information *PRESCRIPTION DRUG MONITORING PROGRAM REVIEWED*: Not Applicable *COPY OF PRESCRIPTION DRUG MONITORING REPORT IN PATIENT DESTINY: Not Applicable Prescriptions: Fluticasone Propionate [Flovent] 50 mcg IH BID #1 blst.w.dev predniSONE [Prednisone] 60 mg PO DAILY 4 Days #12 tablet Instructions: Chronic Obstructive Pulmonary Disease Exacerbation, [id number], How to Use a Metered Dose Inhaler Referrals: [facility] [Primary Care Provider] - Forms: ED Department Discharge, Refusal of Care AMA Additional Instructions: You were seen in the emergency department for shortness of breath. It seems that your symptoms are likely due to worsening of your known COPD/COPD flare. At this point your x-ray looks clear. Your blood work did show that your heart stress level/troponin level was elevated. This is abnormal and concerning. I believe that you may have an artery in your heart that is blocked or close to being blocked. I see that this has happened before. This typically means that you have something called ischemic heart disease, or unhealthy arteries that are partially blocked in the heart. It is possible that these are being aggravated by your COPD exacerbation. However, it is never normal to have an elevated troponin level and this is very concerning. I do strongly recommend that you let us hospitalize you and have you seen by a auto camp attendant to have your heart further evaluated. By refusing this hospitalization, you understand that your heart could further worsen, and your condition could worsen, and you could possibly . You understand that you could possibly by leaving the hospital AGAINST MEDICAL ADVICE today. I do recommend that you follow-up closely with a primary medical doctor in the next 24 hours for reevaluation. I recommend you take a low-dose aspirin, 81 mg daily in the meantime. Warning signs to come back to the ER include: Chest pain, worsening shortness of breath, or any other new or concerning symptoms. Please return the emergency department immediately if your symptoms worsen or if you feel worse. Thank you for choosing the [facility] emergency department in [place] for your medical needs today. It was a pleasure caring for you. The following information is given to patients seen in the emergency department who are being discharged. This information is to outline your options for follow-up care. We provide all patients seen in our emergency department with a follow-up referral. The need for follow-up, as well as the timing and circumstances, are variable depending upon the specifics of your emergency department visit. If you don't have a primary care physician on staff, we will provide you with a referral. We always advise you to contact your personal physician following an emergency department visit to inform them of the circumstance of the visit and for follow-up with them and/or the need for any referrals to a consulting specialist. The emergency department will also refer you to a specialist when appropriate. This referral assures that you have the opportunity for follow-up care with a specialist. All of these measure are taken in an effort to provide you with optimal care, which includes your follow-up. Under all circumstances we always encourage you to contact your private physician who remains a resource for coordinating your care. When calling for follow-up care, please make the office aware that this follow-up is from your recent emergency room visit. If for any reason you are refused follow-up, please contact the [facility] Emergency Department at and asked to speak to the emergency department charge nurse. If you do not have a primary care physician that is caring for you, you can contact these clinics below to set up an appointment to establish care: [facility] [address] [place] [id number] [address] Sepsis Event Note (ED) - Focused Exam Vital Signs: Vital Signs Temp Pulse BP Pulse Ox 07/07/20 10:00 129 H 126/87 98 07/07/20 09:17 93 120/97 H 93 L 07/07/20 08:36 93 126/94 H 96 07/07/20 08:27 95/51 L 07/07/20 08:19 37.0 C 98 94 L - My Orders Last 24 Hours: My Active Orders 07/07/20 08:17 Saline Lock Insert [OM.PC] Stat 07/07/20 08:42 CORONAVIRUS COVID-19 PCR PHL Stat - Assessment/Plan Last 24 Hours: My Active Orders 07/07/20 08:17 Saline Lock Insert [OM.PC] Stat 07/07/20 08:42 CORONAVIRUS COVID-19 PCR PHL Stat
[2020-07-07] MEDS ORDERED: Albuterol/Ipratropium 3.0-0.5 MG/3 ML Neb Soln NEB ONE (08:24)
[2020-07-07] MEDS ORDERED: Albuterol/Ipratropium 3.0-0.5 MG/3 ML Neb Soln ONE (08:25)
[2020-07-07] MEDS ORDERED: predniSONE 20 MG Tab PO ONE (08:37)
[2020-07-07 09:11] LABS: CARBON DIOXIDE,CO2 28.2 mmol/L (21.0-32.0); POTASSIUM,K 4.3 mmol/L (3.5-5.1)
--- NOTE | 2020-07-07 09:18 | CR ---
INDICATION: Dyspnea TECHNIQUE: Chest 1 views COMPARISON: May 04, 2020 FINDINGS: Cardiovascular and mediastinum: Stable mild cardiomegaly. Normal pulmonary vasculature. Lungs and pleural spaces: Lungs are clear. No sign of infiltrate or mass. No sign of pleural effusion. No pneumothorax. Bones and soft tissues: No significant findings. IMPRESSION: No acute findings and no significant changes from the prior exam. Dictated by Chintan Melendez MD @ Jul 07 2020 9:14AM Signed by Dr. Chintan Melendez @ Jul 07 2020 9:16AM
[2020-07-07] MEDS ORDERED: Albuterol 0.5% 5 MG/ML Neb Soln 20 ML Bottle NEB ONE (09:25)
[2020-07-07] MEDS ORDERED: Enoxaparin 100 MG/1 ML Syringe SUBCUT ONE (09:30)
== END 2020-07-07 10:00 | disposition left against medical advice (07) ==
LOC: MW.ED 08:15
DX: J44.1 Chronic obstructive pulmonary disease with (acute) exacerbation (principal); R79.89 Other specified abnormal findings of blood chemistry; Z53.20 Procedure and treatment not carried out because of patient's decision for unspecified reasons; I10 Essential (primary) hypertension; E78.00 Pure hypercholesterolemia, unspecified; I25.2 Old myocardial infarction; Z20.828 Contact with and (suspected) exposure to other viral communicable diseases; Z79.82 Long term (current) use of aspirin; Z79.899 Other long term (current) drug therapy
CPT/HCPCS: 71045; 80053; 84484; 85025; 87635; 93005; 94640; 96372; 99285; A9270; J1650; 93010; 99284; J7620-GY; U0002

== ENCOUNTER 2020-07-19 17:16 | Observation (INO) | payer SELFPAY ==
[2020-07-19] MEDS ORDERED: Sodium Chloride 0.9% 10 ML Syringe FLUSH PRN (17:24)
[2020-07-19] MEDS ORDERED: Sodium Chloride 0.9% 2.5 ML Syringe FLUSH PRN (17:24)
[2020-07-19] MEDS ORDERED: Albuterol/Ipratropium 3.0-0.5 MG/3 ML Neb Soln NEB ONE (17:28)
--- NOTE | 2020-07-19 18:10 | CR ---
INDICATION: Dyspnea TECHNIQUE: Chest 1 view COMPARISON: July 07, 2020, May 04, 2020 FINDINGS: Cardiac silhouette is enlarged. Stable prominence of the central pulmonary arteries. Subtle parenchymal densities suspected within both lower lobes, particularly on the right, new since the prior exams. Degenerative changes. Stable contour of the aorta. No pneumothorax or pleural effusion. IMPRESSION: Subtle parenchymal densities in both lower lobes, right greater than left, suggesting infiltrates. Dictated by Rahul Tierney MD @ Jul 19 2020 6:05PM Signed by Dr. Rahul Tierney @ Jul 19 2020 6:08PM
[2020-07-19 18:11] LABS: CARBON DIOXIDE,CO2 27.4 mmol/L (21.0-32.0)
[2020-07-19] MEDS ORDERED: Furosemide 40 MG/4 ML VIAL IVPUSH ONE (18:14)
--- NOTE | 2020-07-19 18:48 | EDM.PDOC ---
ED HPI GENERAL MEDICAL PROBLEM - General Chief Complaint: Respiratory Problem Stated Complaint: COPD, TROUBLE BREATHING Time Seen by Provider: 07/19/20 17:21 Source of Information: Reports: Patient History Limitations: Reports: No Limitations - History of Present Illness INITIAL COMMENTS - FREE TEXT/NARRATIVE: Presents reporting shortness of breath and swelling in his ankles. This patient has been seen numerous times in this emergency room for the same and similar complaints. July 07, 2020 he presented with shortness of breath. On that occasion his chest x-ray was grossly normal except for cardiomegaly, AST and ALT mildly elevated at 43 and 46 and a creatinine of 1.6--about at his baseline. Troponin was 0.117--he has had elevated troponins previously as well. He was treated with duo-nebs. He declined to be admitted for his elevated troponins but did agree to a dose enoxaparin. He left the emergency room AMA. He does not have a primary provider. He lives in a local hotel. 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 Pain Score (Numeric/FACES): 10 - Related Data Allergies Allergy/AdvReac Type Severity Reaction Status Date / Time No Known Allergies Allergy Verified 07/19/20 17:30 Home Meds: Home Meds Albuterol Sulfate [Proair Hfa] 8.5 gm IH QID PRN #1 hfa.aer.ad 08/18/18 [Rx] Aspirin 81 mg PO DAILY #30 tab.chew 03/15/20 [Rx] Fluticasone Propion/Salmeterol [Fluticasone-Salmeterol 250-50] 1 puff INH BID 05/05/20 [History] Ipratropium/Albuterol Sulfate [Iprat-Albut 0.5-3(2.5) mg/3 ml] 1 dose NEB ASDIRECTED PRN 05/05/20 [History] amLODIPine Besylate [Amlodipine Besylate] 5 mg PO DAILY 05/05/20 [History] atorvaSTATin Calcium [Atorvastatin Calcium] 40 mg PO DAILY 05/05/20 [History] guaiFENesin [Mucinex] 2 tab PO BID 05/05/20 [History] Albuterol [Proventil HFA] 2 puff INH Q4H PRN #1 inhaler 05/28/20 [Rx] predniSONE [Prednisone] 60 mg PO DAILY #27 tablet 10/07/20 [Rx] Fluticasone Propionate [Flovent] 50 mcg IH BID #1 blst.w.dev 07/07/20 [Rx] predniSONE [Prednisone] 60 mg PO DAILY 4 Days #12 tablet 07/07/20 [Rx] Past Medical History HEENT History: Reports: Other (See Below) Other HEENT History: wears glasses, has top partial Cardiovascular History: Reports: High Cholesterol, Hypertension, Other (See Below) Other Cardiovascular History: have been told he "may have had a mild heart attack", on lasix for lower extremity edema, also states he possibly had blood clots to his lower extremities and was treated with blood thinners Respiratory History: Reports: Asthma, COPD, SOB Gastrointestinal History: Reports: Colon Polyp, Other (See Below) Other Gastrointestinal History: states occasional reflux Genitourinary History: Reports: None Musculoskeletal History: Reports: None Neurological History: Reports: None Psychiatric History: Reports: None Endocrine/Metabolic History: Reports: None Hematologic History: Reports: None Immunologic History: Reports: None Oncologic (Cancer) History: Reports: None Dermatologic History: Reports: Psoriasis - Infectious Disease History Infectious Disease History: Reports: None - Past Surgical History Head Surgeries/Procedures: Reports: None HEENT Surgical History: Reports: None Cardiovascular Surgical History: Reports: None Respiratory Surgical History: Reports: None GI Surgical History: Reports: Colonoscopy Male Surgical History: Reports: None Endocrine Surgical History: Reports: None Neurological Surgical History: Reports: None Musculoskeletal Surgical History: Reports: None Oncologic Surgical History: Reports: None Dermatological Surgical History: Reports: None Social & Family History - Family History Family Medical History: No Pertinent Family History - Tobacco Use Tobacco Use Status *Q: Current Every Day Tobacco User Years of Tobacco use: 20 Packs/Tins Daily: 1 Second Hand Smoke Exposure: No - Caffeine Use Caffeine Use: Reports: Coffee - Recreational Drug Use Recreational Drug Use: No ED ROS GENERAL - Review of Systems Review Of Systems: Comprehensive ROS is negative, except as noted in HPI. ED EXAM, GENERAL - Physical Exam Exam: See Below Exam Limited By: No Limitations General Appearance: Alert, No Apparent Distress Ears: Normal External Exam Nose: Normal Inspection Throat/Mouth: Normal Inspection Head: Atraumatic, Normocephalic Neck: Normal Inspection Respiratory/Chest: No Respiratory Distress, Lungs Clear, Normal Breath Sounds Cardiovascular: Normal Peripheral Pulses, Regular Rate, Rhythm, No Murmur GI/Abdominal: Soft, No Distention Extremities: Other (Lower leg ankle and foot edema 2++) Neurological: Alert, Oriented, Normal Cognition Psychiatric: Normal Affect, Normal Mood Skin Exam: Warm, Dry, Intact, Normal Color, No Rash Lymphatic: No Adenopathy Course - Vital Signs Last Recorded V/S: Last Vital Signs Temp 35.7 C L 07/19/20 17:25 Pulse 101 H 07/19/20 17:25 Resp 25 H 07/19/20 17:25 BP 138/102 H 07/19/20 17:25 Pulse Ox 95 07/19/20 17:25 - Orders/Labs/Meds Orders: Active Orders 24 hr Category Date Time Status Cardiac Monitoring [RC] . DIRECTED Care 07/19/20 17:25 Active EKG 12 Lead [EKG Documentation Completion] [RC] STAT Care 07/19/20 17:28 Active RT Aerosol Therapy [RC] ASDIRECTED Care 07/19/20 17:29 Active CORONAVIRUS COVID-19 PCR PHL Stat Lab 07/19/20 17:29 Ordered Sodium Chloride 0.9% [Saline Flush] Med 07/19/20 17:24 Active 10 ml FLUSH ASDIRECTED PRN Sodium Chloride 0.9% [Saline Flush] Med 07/19/20 17:24 Active 2.5 ml FLUSH ASDIRECTED PRN Saline Lock Insert [OM.PC] Stat Oth 07/19/20 17:25 Ordered Medication Orders Sodium Chloride (Saline Flush) 10 ml FLUSH ASDIRECTED PRN PRN Reason: Keep Vein Open Sodium Chloride (Saline Flush) 2.5 ml FLUSH ASDIRECTED PRN PRN Reason: Keep Vein Open Labs: Laboratory Tests 07/19/20 07/19/20 07/19/20 Range/Units 17:40 17:40 17:40 WBC 5.46 (4.0-11.0) K/uL RBC 4.75 (4.50-5.90) M/uL Hgb 15.2 (13.0-17.0) g/dL Hct 45.7 (38.0-50.0) % MCV 96.2 (80.0-98.0) fL MCH 32.0 (27.0-32.0) pg MCHC 33.3 (31.0-37.0) g/dL RDW Std Deviation 55.1 (28.0-62.0) fl RDW Coeff of Chuy 16 H (11.0-15.0) % Plt Count 200 (150-400) K/uL MPV 10.90 (7.40-12.00) fL Neut % (Auto) 67.1 (48.0-80.0) % Lymph % (Auto) 24.5 (16.0-40.0) % Henderson % (Auto) 7.5 (0.0-15.0) % Eos % (Auto) 0.7 (0.0-7.0) % Baso % (Auto) 0.2 (0.0-1.5) % Neut # (Auto) 3.7 (1.4-5.7) K/uL Lymph # (Auto) 1.3 (0.6-2.4) K/uL Henderson # (Auto) 0.4 (0.0-0.8) K/uL Eos # (Auto) 0.0 (0.0-0.7) K/uL Baso # (Auto) 0.0 (0.0-0.1) K/uL Nucleated RBC % 0.0 /100WBC Nucleated RBCs # 0 K/uL Sodium 140 (136-148) mmol/L Potassium 4.0 (3.5-5.1) mmol/L Chloride 105 (98-107) mmol/L Carbon Dioxide 27.4 (21.0-32.0) mmol/L BUN 28 H (7.0-18.0) mg/dL Creatinine 1.6 H (0.8-1.3) mg/dL Est Cr Clr Drug Dosing 51.64 mL/min Estimated GFR (MDRD) 53.5 ml/min Glucose 116 H (74-106) mg/dL Calcium 8.8 (8.5-10.1) mg/dL Total Bilirubin 0.7 (0.2-1.0) mg/dL AST 111 H (15-37) IU/L ALT 154 H (14-63) IU/L Alkaline Phosphatase 68 (46-116) U/L Troponin I 0.112 H* (0.000-0.056) ng/mL B-Natriuretic Peptide 3066 H (<100) PG/ML Total Protein 6.5 (6.4-8.2) g/dL Albumin 3.4 (3.4-5.0) g/dL Globulin 3.1 (2.6-4.0) g/dL Albumin/Globulin Ratio 1.1 (0.9-1.6) Meds: Medications Generic Name Dose Route Start Last Admin Trade Name Freq PRN Reason Stop Dose Admin Sodium Chloride 10 ml 07/19/20 17:24 Saline Flush FLUSH ASDIRECTED PRN Keep Vein Open Sodium Chloride 2.5 ml 07/19/20 17:24 Saline Flush FLUSH ASDIRECTED PRN Keep Vein Open Discontinued Medications Generic Name Dose Route Start Last Admin Trade Name Freq PRN Reason Stop Dose Admin Albuterol/Ipratropium 3 ml 07/19/20 17:28 07/19/20 17:40 Duoneb 3.0-0.5 Mg/3 Ml NEB 07/19/20 17:29 3 ml ONETIME ONE Administration Furosemide 40 mg 07/19/20 18:14 Lasix IVPUSH 07/19/20 18:15 NOW ONE - Re-Assessments/Exams Free Text/Narrative Re-Assessment/Exam: 07/19/20 20:20 Tonight, the patient states that he is willing to be admitted. Discussion with Dr. Huff, hospitalist regarding labs, clinical course, imaging. Voided 1100 cc after 40 mg of IV Lasix. Dyspnea improved with duoneb and O2 per NC. Troponin trended down from 0.112 to 0.109 Departure - Departure Time of Disposition: 20:25 Disposition: Refer to Observation Condition: Good Clinical Impression: CHF exacerbation Qualifiers: Heart failure type: unspecified Qualified Code(s): I50.9 - Heart failure, unspecified Pneumonia Qualifiers: Pneumonia type: due to unspecified organism - Discharge Information Sepsis Event Note (ED) - Evaluation Sepsis Screening Result: No Definite Risk - Focused Exam Vital Signs: Vital Signs Temp Pulse Resp BP Pulse Ox 07/19/20 17:25 35.7 C L 101 H 25 H 138/102 H 95 - My Orders Last 24 Hours: My Active Orders 07/19/20 17:24 Sodium Chloride 0.9% [Saline Flush] 10 ml FLUSH ASDIRECTED PRN Sodium Chloride 0.9% [Saline Flush] 2.5 ml FLUSH ASDIRECTED PRN 07/19/20 17:25 Cardiac Monitoring [RC] . DIRECTED Saline Lock Insert [OM.PC] Stat 07/19/20 17:28 EKG 12 Lead [EKG Documentation Completion] [RC] STAT 07/19/20 17:29 RT Aerosol Therapy [RC] ASDIRECTED CORONAVIRUS COVID-19 PCR PHL Stat - Assessment/Plan Last 24 Hours: My Active Orders 07/19/20 17:24 Sodium Chloride 0.9% [Saline Flush] 10 ml FLUSH ASDIRECTED PRN Sodium Chloride 0.9% [Saline Flush] 2.5 ml FLUSH ASDIRECTED PRN 07/19/20 17:25 Cardiac Monitoring [RC] . DIRECTED Saline Lock Insert [OM.PC] Stat 07/19/20 17:28 EKG 12 Lead [EKG Documentation Completion] [RC] STAT 07/19/20 17:29 RT Aerosol Therapy [RC] ASDIRECTED CORONAVIRUS COVID-19 PCR PHL Stat
[2020-07-19] MEDS ORDERED: Azithromycin 250 MG Tab PO ONE (19:22)
[2020-07-19] MEDS ORDERED: cefTRIAXone 1 GM in Premix Bag 1 BAG IV ONE (19:23)
[2020-07-19] MEDS ORDERED: Ondansetron 4 MG/2 ML SDV IVPUSH PRN (20:44)
[2020-07-19] MEDS ORDERED: Enoxaparin 40 MG/0.4 ML Syringe SUBCUT SCH (20:45)
[2020-07-19] MEDS ORDERED: Aspirin 325 MG Tab PO ONE (21:05)
--- NOTE | 2020-07-19 21:27 | PCM.SN.2 ---
#1 Interpretation EKG Date: 07/19/20 Time: 17:32 Rhythm: NSR Rate (Beats/Min): 102 Muse: RAD-Right Muse Deviation P-Wave: Present QRS: LBBB ST-T: Normal QT: Normal Comparison: No Change (07/07/2020) EKG Interpretation Comments: Sinus Tachycardia T wave inversions in inferior and lateral leads
[2020-07-19 21:39] LABS: HEMOGLOBIN A1C 6.6 %
[2020-07-19] MEDS: Albuterol/Ipratropium 3.0-0.5 MG/3 ML Neb Soln NEB PRN (22:11)
[2020-07-19] MEDS: Furosemide 40 MG/4 ML VIAL IVPUSH SCH (22:45)
--- NOTE | 2020-07-19 22:50 | PCM.HP.2 ---
H&P History of Present Illness - General Date of Service: 07/19/20 Admit Problem/Dx: Admission Diagnosis/Problem Admission Diagnosis/Problem CHF, Congestive heart failure - History of Present Illness Initial Comments - Free Text/Narative: This is a 59-year-old male with a past medical history of severe COPD, asthma, NSTEMI, cardiomegaly, and cocaine misuse, hyperlipidemia presenting with shortness of breath. Several visits to the emergency department over the past few weeks for shortness of breath. Was last here on 07/07 in ER for shortness of breath and cough, he left AMA at that time. Today presents to the emergency department complaining of gradually worsening shortness of breath for past 1 week. States he gets SOB upon ambulating few feets. He states that he thinks he is having another COPD exacerbation as he ran out of his meds including steroids. Denies any fever chest discomfort, hemoptysis, or new lower extremity swelling. Does have remote history of a DVT but is not on any anticoagulation, was previously on Warfarin and stopped it on his own and was never restarted. Denies any nausea, vomiting, or other gastrointestinal symptoms. Denies any recent cocaine use. Has stopped smoking since 2 days. Labs in ER: Laboratory Tests 07/07/20 07/07/20 07/19/20 08:33 08:33 17:40 WBC 7.23 Hgb 14.9 Sodium 141 140 Potassium 4.3 4.0 BUN 28 H Creatinine 1.6 H 1.6 H Magnesium AST 43 H 111 H ALT 86 H 154 H Troponin I 0.112 H* 07/19/20 07/19/20 07/19/20 17:40 19:40 22:45 WBC 5.46 Hgb 15.2 Sodium Potassium BUN Creatinine Magnesium 1.7 L AST ALT Troponin I 0.112 H* 0.109 H* 0.130 H* BNP was elevated, CXR showed b/l infiltrates, on exam patient has 3+ pitting edema, Patients 2nd troponin trended down, troponin leak was attributed to possible on going CHF. Patient was admitted for further management. abdomen Pain Score (Numeric/FACES): 0 - Related Data Allergies/Adverse Reactions: Allergies Allergy/AdvReac Type Severity Reaction Status Date / Time No Known Allergies Allergy Verified 07/19/20 17:30 Home Medications: Home Meds Albuterol Sulfate [Proair Hfa] 8.5 gm IH QID PRN #1 hfa.aer.ad 08/18/18 [Rx] Aspirin 81 mg PO DAILY #30 tab.chew 03/15/20 [Rx] Fluticasone Propion/Salmeterol [Fluticasone-Salmeterol 250-50] 1 puff INH BID 05/05/20 [History] Ipratropium/Albuterol Sulfate [Iprat-Albut 0.5-3(2.5) mg/3 ml] 1 dose NEB ASD IRECTED PRN 05/05/20 [History] amLODIPine Besylate [Amlodipine Besylate] 5 mg PO DAILY 05/05/20 [History] atorvaSTATin Calcium [Atorvastatin Calcium] 40 mg PO DAILY 05/05/20 [History] guaiFENesin [Mucinex] 2 tab PO BID 05/05/20 [History] Albuterol [Proventil HFA] 2 puff INH Q4H PRN #1 inhaler 05/28/20 [Rx] predniSONE [Prednisone] 60 mg PO DAILY #27 tablet 05/28/20 [Rx] Fluticasone Propionate [Flovent] 50 mcg IH BID #1 blst.w.dev 07/07/20 [Rx] predniSONE [Prednisone] 60 mg PO DAILY 4 Days #12 tablet 07/07/20 [Rx] Past Medical History HEENT History: Reports: Other (See Below) Other HEENT History: wears glasses, has top partial Cardiovascular History: Reports: High Cholesterol, Hypertension, Other (See Below) Other Cardiovascular History: have been told he "may have had a mild heart attack", on lasix for lower extremity edema, also states he possibly had blood clots to his lower extremities and was treated with blood thinners Respiratory History: Reports: Asthma, COPD, SOB Gastrointestinal History: Reports: Colon Polyp, Other (See Below) Other Gastrointestinal History: states occasional reflux Genitourinary History: Reports: None Musculoskeletal History: Reports: None Neurological History: Reports: None Psychiatric History: Reports: None Endocrine/Metabolic History: Reports: None Hematologic History: Reports: None Immunologic History: Reports: None Oncologic (Cancer) History: Reports: None Dermatologic History: Reports: Psoriasis - Infectious Disease History Infectious Disease History: Reports: None - Past Surgical History Head Surgeries/Procedures: Reports: None HEENT Surgical History: Reports: None Cardiovascular Surgical History: Reports: None Respiratory Surgical History: Reports: None GI Surgical History: Reports: Colonoscopy Male Surgical History: Reports: None Endocrine Surgical History: Reports: None Neurological Surgical History: Reports: None Musculoskeletal Surgical History: Reports: None Oncologic Surgical History: Reports: None Dermatological Surgical History: Reports: None Social & Family History - Family History Family Medical History: No Pertinent Family History - Tobacco Use Tobacco Use Status *Q: Current Every Day Tobacco User Years of Tobacco use: 20 Packs/Tins Daily: 1 Second Hand Smoke Exposure: No - Caffeine Use Caffeine Use: Reports: Coffee - Recreational Drug Use Recreational Drug Use: No H&P Review of Systems - Review of Systems: Review Of Systems: See Below General: Denies: Fever, Chills, Malaise HEENT: Denies: Contact Lenses, Dysphasia Pulmonary: Reports: Shortness of Breath, Wheezing. Denies: Pleuritic Chest Pain, Cough, Sputum Cardiovascular: Reports: Dyspnea on Exertion, Orthopnea, Edema. Denies: Chest Pain, Palpitations, Lightheadedness, Syncope, Claudication Gastrointestinal: Denies: Abdominal Pain, Anorexia, Black Stool, Constipation, Diarrhea, Hematochezia, Nausea, Vomiting Genitourinary: Denies: Dysuria, Frequency, Burning Musculoskeletal: Denies: Neck Pain, Shoulder Pain, Arm Pain, Back Pain Exam - Exam Exam: See Below - Vital Signs Vital Signs: Last Vital Signs Temp 35.9 C L 07/19/20 22:00 Pulse 106 H 07/19/20 22:00 Resp 24 H 07/19/20 22:00 BP 131/107 H 07/19/20 22:00 Pulse Ox 97 07/19/20 22:00 Weight: 88.451 kg - Exam Quality Assessment: Supplemental Oxygen General: Alert, Oriented, Cooperative Neck: Supple, Trachea Midline Lungs: Normal Respiratory Effort, Crackles, Wheezing. No: Clear to Auscultation, Decreased Breath Sounds Cardiovascular: Regular Rhythm, Tachycardia GI/Abdominal Exam: Normal Bowel Sounds, Soft, Distended - Patient Data Lab Results Last 24 hrs: Laboratory Results - last 24 hr 07/19/20 07/19/20 07/19/20 Range/Units 17:40 17:40 17:40 WBC 5.46 (4.0-11.0) K/uL RBC 4.75 (4.50-5.90) M/uL Hgb 15.2 (13.0-17.0) g/dL Hct 45.7 (38.0-50.0) % MCV 96.2 (80.0-98.0) fL MCH 32.0 (27.0-32.0) pg MCHC 33.3 (31.0-37.0) g/dL RDW Std Deviation 55.1 (28.0-62.0) fl RDW Coeff of Chuy 16 H (11.0-15.0) % Plt Count 200 (150-400) K/uL MPV 10.90 (7.40-12.00) fL Neut % (Auto) 67.1 (48.0-80.0) % Lymph % (Auto) 24.5 (16.0-40.0) % Hall % (Auto) 7.5 (0.0-15.0) % Eos % (Auto) 0.7 (0.0-7.0) % Baso % (Auto) 0.2 (0.0-1.5) % Neut # (Auto) 3.7 (1.4-5.7) K/uL Lymph # (Auto) 1.3 (0.6-2.4) K/uL Hall # (Auto) 0.4 (0.0-0.8) K/uL Eos # (Auto) 0.0 (0.0-0.7) K/uL Baso # (Auto) 0.0 (0.0-0.1) K/uL Nucleated RBC % 0.0 /100WBC Nucleated RBCs # 0 K/uL Sodium 140 (136-148) mmol/L Potassium 4.0 (3.5-5.1) mmol/L Chloride 105 (98-107) mmol/L Carbon Dioxide 27.4 (21.0-32.0) mmol/L BUN 28 H (7.0-18.0) mg/dL Creatinine 1.6 H (0.8-1.3) mg/dL Est Cr Clr Drug Dosing 51.64 mL/min Estimated GFR (MDRD) 53.5 ml/min Glucose 116 H (74-106) mg/dL Hemoglobin A1c (4.5 - 6.2) % Calcium 8.8 (8.5-10.1) mg/dL Total Bilirubin 0.7 (0.2-1.0) mg/dL AST 111 H (15-37) IU/L ALT 154 H (14-63) IU/L Alkaline Phosphatase 68 (46-116) U/L Troponin I 0.112 H* (0.000-0.056) ng/mL B-Natriuretic Peptide 3066 H (<100) PG/ML Total Protein 6.5 (6.4-8.2) g/dL Albumin 3.4 (3.4-5.0) g/dL Globulin 3.1 (2.6-4.0) g/dL Albumin/Globulin Ratio 1.1 (0.9-1.6) TSH 3rd Generation (0.36-3.74) uIU/mL SARS-CoV-2 RNA (SCOTT) (NEGATIVE) 07/19/20 07/19/20 07/19/20 Range/Units 17:40 17:40 18:50 WBC (4.0-11.0) K/uL RBC (4.50-5.90) M/uL Hgb (13.0-17.0) g/dL Hct (38.0-50.0) % MCV (80.0-98.0) fL MCH (27.0-32.0) pg MCHC (31.0-37.0) g/dL RDW Std Deviation (28.0-62.0) fl RDW Coeff of Chuy (11.0-15.0) % Plt Count (150-400) K/uL MPV (7.40-12.00) fL Neut % (Auto) (48.0-80.0) % Lymph % (Auto) (16.0-40.0) % Hall % (Auto) (0.0-15.0) % Eos % (Auto) (0.0-7.0) % Baso % (Auto) (0.0-1.5) % Neut # (Auto) (1.4-5.7) K/uL Lymph # (Auto) (0.6-2.4) K/uL Hall # (Auto) (0.0-0.8) K/uL Eos # (Auto) (0.0-0.7) K/uL Baso # (Auto) (0.0-0.1) K/uL Nucleated RBC % /100WBC Nucleated RBCs # K/uL Sodium (136-148) mmol/L Potassium (3.5-5.1) mmol/L Chloride (98-107) mmol/L Carbon Dioxide (21.0-32.0) mmol/L BUN (7.0-18.0) mg/dL Creatinine (0.8-1.3) mg/dL Est Cr Clr Drug Dosing mL/min Estimated GFR (MDRD) ml/min Glucose (74-106) mg/dL Hemoglobin A1c 6.6 H (4.5 - 6.2) % Calcium (8.5-10.1) mg/dL Total Bilirubin (0.2-1.0) mg/dL AST (15-37) IU/L ALT (14-63) IU/L Alkaline Phosphatase (46-116) U/L Troponin I (0.000-0.056) ng/mL B-Natriuretic Peptide (<100) PG/ML Total Protein (6.4-8.2) g/dL Albumin (3.4-5.0) g/dL Globulin (2.6-4.0) g/dL Albumin/Globulin Ratio (0.9-1.6) TSH 3rd Generation 1.08 (0.36-3.74) uIU/mL SARS-CoV-2 RNA (SCOTT) NEGATIVE (NEGATIVE) 07/19/20 Range/Units 19:40 WBC (4.0-11.0) K/uL RBC (4.50-5.90) M/uL Hgb (13.0-17.0) g/dL Hct (38.0-50.0) % MCV (80.0-98.0) fL MCH (27.0-32.0) pg MCHC (31.0-37.0) g/dL RDW Std Deviation (28.0-62.0) fl RDW Coeff of Chuy (11.0-15.0) % Plt Count (150-400) K/uL MPV (7.40-12.00) fL Neut % (Auto) (48.0-80.0) % Lymph % (Auto) (16.0-40.0) % Hall % (Auto) (0.0-15.0) % Eos % (Auto) (0.0-7.0) % Baso % (Auto) (0.0-1.5) % Neut # (Auto) (1.4-5.7) K/uL Lymph # (Auto) (0.6-2.4) K/uL Hall # (Auto) (0.0-0.8) K/uL Eos # (Auto) (0.0-0.7) K/uL Baso # (Auto) (0.0-0.1) K/uL Nucleated RBC % /100WBC Nucleated RBCs # K/uL Sodium (136-148) mmol/L Potassium (3.5-5.1) mmol/L Chloride (98-107) mmol/L Carbon Dioxide (21.0-32.0) mmol/L BUN (7.0-18.0) mg/dL Creatinine (0.8-1.3) mg/dL Est Cr Clr Drug Dosing mL/min Estimated GFR (MDRD) ml/min Glucose (74-106) mg/dL Hemoglobin A1c (4.5 - 6.2) % Calcium (8.5-10.1) mg/dL Total Bilirubin (0.2-1.0) mg/dL AST (15-37) IU/L ALT (14-63) IU/L Alkaline Phosphatase (46-116) U/L Troponin I 0.109 H* (0.000-0.056) ng/mL B-Natriuretic Peptide (<100) PG/ML Total Protein (6.4-8.2) g/dL Albumin (3.4-5.0) g/dL Globulin (2.6-4.0) g/dL Albumin/Globulin Ratio (0.9-1.6) TSH 3rd Generation (0.36-3.74) uIU/mL SARS-CoV-2 RNA (SCOTT) (NEGATIVE) Result Diagrams: 07/19/20 17:40 07/19/20 17:40 Sepsis Event Note - Evaluation Sepsis Screening Result: No Definite Risk - Focused Exam Vital Signs: Vital Signs Temp Pulse Resp BP Pulse Ox 07/19/20 22:00 35.9 C L 106 H 24 H 131/107 H 97 07/19/20 21:37 92 20 117/93 H 98 07/19/20 20:51 81 20 126/97 H 98 07/19/20 20:09 103 H 20 126/100 H 96 07/19/20 19:39 113 H 24 H 130/100 H 96 07/19/20 18:55 105 H 122/87 92 L 07/19/20 18:26 102 H 118/88 92 L 07/19/20 17:56 52 L 130/104 H 93 L 07/19/20 17:25 35.7 C L 101 H 25 H 138/102 H 95 - Problem List (1) CHF exacerbation SNOMED Code(s): 279259382, 67293183771236 ICD Code: I50.9 - HEART FAILURE, UNSPECIFIED Status: Acute Current Visit: No Qualifiers: Heart failure type: unspecified Qualified Code(s): I50.9 - Heart failure, unspecified (2) COPD exacerbation SNOMED Code(s): 950808890 ICD Code: J44.1 - CHRONIC OBSTRUCTIVE PULMONARY DISEASE W (ACUTE) EXACERBATION Status: Acute Current Visit: No (3) Cardiomegaly SNOMED Code(s): 2473425 ICD Code: I51.7 - CARDIOMEGALY Status: Acute Current Visit: No (4) Cocaine abuse SNOMED Code(s): 35086419 ICD Code: F14.10 - COCAINE ABUSE, UNCOMPLICATED Status: Acute Current Visit: No (5) Elevated troponin SNOMED Code(s): 263134809, 382445218, 748930275 ICD Code: R77.8 - OTHER SPECIFIED ABNORMALITIES OF PLASMA PROTEINS Status: Acute Current Visit: No (6) Pneumonia SNOMED Code(s): 417652535 ICD Code: J18.9 - PNEUMONIA, UNSPECIFIED ORGANISM Status: Acute Current Visit: No Qualifiers: Pneumonia type: due to unspecified organism (7) Hypomagnesemia SNOMED Code(s): 508339985 ICD Code: E83.42 - HYPOMAGNESEMIA Status: Acute Current Visit: Yes (8) Transaminitis SNOMED Code(s): 040029831, 077057225 ICD Code: R74.01 - ELEVATION OF LEVELS OF LIVER TRANSAMINASE LEVELS Status: Acute Current Visit: Yes Problem List Initiated/Reviewed/Updated: Yes Orders Last 24hrs: Active Orders 24 hr Category Date Time Status Patient Status [ADT] Stat ADT 07/19/20 20:22 Active Ambulate [RC] ASDIRECTED Care 07/19/20 20:44 Active Antiembolic Devices [RC] PER UNIT ROUTINE Care 07/19/20 20:45 Active Cardiac Monitoring [RC] Q8H Care 07/19/20 17:25 Active EKG 12 Lead [EKG Documentation Completion] [RC] STAT Care 07/19/20 17:28 Active Oxygen Therapy [RC] ASDIRECTED Care 07/19/20 21:21 Active Pulse Oximetry [RC] PRN Care 07/19/20 20:44 Active RT Aerosol Therapy [RC] ASDIRECTED Care 07/19/20 17:29 Active RT Aerosol Therapy [RC] ASDIRECTED Care 07/19/20 20:45 Active Telemetry Monitoring [Cardiac Monitoring] [RC] . Care 07/19/20 20:26 Active DIRECTED VTE/DVT Education [RC] PER UNIT ROUTINE Care 07/19/20 20:44 Active Vital Signs [RC] Q4H Care 07/19/20 20:44 Active Heart Healthy Diet [DIET] Diet 07/19/20 Dinner Active Echo Comp wo Cont [US] Stat Exams 07/19/20 20:47 Ordered DRUG SCREEN, URINE [URCHEM] Stat Lab 07/19/20 22:30 Received MAGNESIUM [CHEM] Routine Lab 07/19/20 22:45 Received PHOSPHORUS [CHEM] Routine Lab 07/19/20 22:45 Received TROPONIN I [CHEM] Stat Lab 07/19/20 22:45 Received Albuterol/Ipratropium [DuoNeb 3.0-0.5 MG/3 ML] Med 07/19/20 20:44 Active 3 ml NEB Q4HRRT PRN Aspirin Med 07/20/20 09:00 Active 81 mg PO DAILY Azithromycin [Zithromax] Med 07/20/20 09:00 Active 250 mg IV Q24H Enoxaparin [Lovenox] Med 07/19/20 20:45 Active 40 mg SUBCUT Q24H Furosemide [Lasix] Med 07/19/20 21:00 Active 40 mg IVPUSH BID Ondansetron [Zofran] Med 07/19/20 20:44 Active 4 mg IVPUSH Q4H PRN Sodium Chloride 0.9% [Saline Flush] Med 07/19/20 17:24 Active 10 ml FLUSH ASDIRECTED PRN Sodium Chloride 0.9% [Saline Flush] Med 07/19/20 17:24 Active 2.5 ml FLUSH ASDIRECTED PRN atorvaSTATin [Lipitor] Med 07/20/20 09:00 Active 40 mg PO DAILY cefTRIAXone [Rocephin] 1 gm Med 07/20/20 09:00 Active Sodium Chloride 0.9% [Normal Saline] 50 ml IV Q24H Saline Lock Insert [OM.PC] Stat Oth 07/19/20 17:25 Ordered Sequential Compression Device [OM.PC] Per Unit Routine Ot 07/19/20 20:44 Ordered Medication Orders Albuterol/Ipratropium (Duoneb 3.0-0.5 Mg/3 Ml) 3 ml NEB Q4HRRT PRN PRN Reason: Shortness Of Breath/wheezing Last Admin: 07/19/20 22:11 Dose: 3 ml Documented by: JILLIAN Aspirin (Aspirin) 81 mg PO DAILY TONY Atorvastatin Calcium (Lipitor) 40 mg PO DAILY [facility] Azithromycin (Zithromax) 250 mg IV Q24H TONY Enoxaparin Sodium (Lovenox) 40 mg SUBCUT Q24H [facility] Last Admin: 07/19/20 22:44 Dose: 40 mg Documented by: JILLIAN Furosemide (Lasix) 40 mg IVPUSH BID [facility] Last Admin: 07/19/20 22:45 Dose: 40 mg Documented by: JILLIAN Ceftriaxone Sodium 1 gm/ (Sodium Chloride) 50 mls @ 100 mls/hr IV Q24H TONY Ondansetron HCl (Zofran) 4 mg IVPUSH Q4H PRN PRN Reason: Nausea/Vomiting Sodium Chloride (Saline Flush) 10 ml FLUSH ASDIRECTED PRN PRN Reason: Keep Vein Open Last Admin: 07/19/20 19:33 Dose: 10 ml Documented by: NELIA Sodium Chloride (Saline Flush) 2.5 ml FLUSH ASDIRECTED PRN PRN Reason: Keep Vein Open Last Admin: 07/19/20 19:33 Dose: 2.5 ml Documented by: [id number] Assessment/Plan Comment:: 59 y/o M admitted for SOB Likely CHF exacerbation. Possible CAP as well. Underlying COPD with wheezing Tele showing possible Aflutter, EKG shows sinus tachycardia, no STEMI Troponins elevated, likely type 2 leak secondary to fluid overload and demand supply ischemia, along with decreased excretion due to renal insufficiency, no chest pain, SOB has improved, will continue to trend Transaminitis likely due to hepatic congestion, cont to trend Start IV antibiotics Start IV Lasix, steroids DuoNebs start Antiplatelet and anticoagulation with Lovenox for possible NSTEMI monitor creatinine, switch to heparin if worsening VIOLETTE 2D ECHO Check UDS Monitor and replete electrolytes as needed
[2020-07-19] MEDS ORDERED: Magnesium Sulfate/Water 4 GM/100 ML BAG IV ONE (23:35)
[2020-07-19] MEDS ORDERED: Enoxaparin 60 MG/0.6 ML Syringe SUBCUT ONE (23:58)
[2020-07-20] MEDS ORDERED: Magnesium Sulfate/Water 100 ML ONE (00:22)
[2020-07-20] MEDS: Enoxaparin 100 MG/1 ML Syringe SUBCUT SCH ×2 (00:32→11:49)
[2020-07-20] MEDS ORDERED: Diltiazem 25 MG/5 ML SDV IVPUSH ONE (00:39)
[2020-07-20] MEDS: methylPREDNISolone Sodium Succinate 40 MG/1 ML SDV IVPUSH SCH ×3 (01:27→16:31)
[2020-07-20] MEDS: Albuterol/Ipratropium 3.0-0.5 MG/3 ML Neb Soln NEB PRN ×3 (02:05→13:21)
[2020-07-20] MEDS ORDERED: Glucagon,Human Recombinant 1 MG Vial IM PRN (02:25)
[2020-07-20] MEDS ORDERED: 50% Dextrose in Water 50 ML Syringe IV PRN (02:25)
[2020-07-20 06:49] LABS: CARBON DIOXIDE,CO2 31.9 mmol/L (21.0-32.0); POTASSIUM,K 4.7 mmol/L (3.5-5.1)
[2020-07-20] MEDS: Aspirin 81 MG Tab.Chew PO SCH (08:53)
[2020-07-20] MEDS: atorvaSTATin 40 MG Tab PO SCH (08:53)
[2020-07-20] MEDS ORDERED: Azithromycin 500 MG Vial IV SCH (09:00)
[2020-07-20] MEDS ORDERED: cefTRIAXone 1 GM in Sodium Chloride 0.9% 50 ML IV SCH (09:00)
[2020-07-20] MEDS: Furosemide 40 MG/4 ML VIAL IVPUSH SCH ×3 (09:01→21:48)
[2020-07-20] MEDS: cefTRIAXone 1 GM in Premix Bag 1 BAG IV SCH (09:05)
[2020-07-20] MEDS: Insulin Aspart 100 Units/ML 3 ML Pen SUBCUT SCH ×3 (09:08→17:21)
[2020-07-20] MEDS: Azithromycin 250 MG in Sodium Chloride 0.9% 250 ML IV SCH (09:56)
--- NOTE | 2020-07-20 13:15 | PCM.PN ---
- General Info Date of Service: 07/20/20 Admission Dx/Problem (Free Text): Admission Diagnosis/Problem Admission Diagnosis/Problem CHF, Congestive heart failure Functional Status: Reports: Pain Controlled, Tolerating Diet, Ambulating, Urinating - Review of Systems General: Denies: Fever, Weakness, Fatigue HEENT: Denies: Dysphasia, Ear Pain Pulmonary: Reports: Shortness of Breath, Wheezing. Denies: Pleuritic Chest Pain, Hemoptysis Cardiovascular: Reports: Dyspnea on Exertion, Edema. Denies: Chest Pain, Palpitations, Lightheadedness Gastrointestinal: Denies: Abdominal Pain, Constipation, Decreased Appetite, Diarrhea, Difficulty Swallowing Genitourinary: Reports: Frequency. Denies: Dysuria, Burning, Pain, Urgency Musculoskeletal: Denies: Neck Pain, Shoulder Pain, Arm Pain - Patient Data Vitals - Most Recent: Last Vital Signs Temp 36.2 C 07/20/20 11:29 Pulse 88 07/20/20 11:29 Resp 16 07/20/20 11:29 BP 127/86 07/20/20 11:29 Pulse Ox 93 L 07/20/20 11:29 Weight - Most Recent: 91.127 kg I&O - Last 24 Hours: Intake & Output 07/19/20 07/20/20 07/20/20 22:59 06:59 14:59 Intake Total 700 Output Total 1600 1480 Balance -1600 -780 Lab Results Last 24 Hours: Laboratory Results - last 24 hr 07/19/20 07/19/20 07/19/20 Range/Units 17:40 17:40 17:40 WBC 5.46 (4.0-11.0) K/uL RBC 4.75 (4.50-5.90) M/uL Hgb 15.2 (13.0-17.0) g/dL Hct 45.7 (38.0-50.0) % MCV 96.2 (80.0-98.0) fL MCH 32.0 (27.0-32.0) pg MCHC 33.3 (31.0-37.0) g/dL RDW Std Deviation 55.1 (28.0-62.0) fl RDW Coeff of Chuy 16 H (11.0-15.0) % Plt Count 200 (150-400) K/uL MPV 10.90 (7.40-12.00) fL Neut % (Auto) 67.1 (48.0-80.0) % Lymph % (Auto) 24.5 (16.0-40.0) % Elliott % (Auto) 7.5 (0.0-15.0) % Eos % (Auto) 0.7 (0.0-7.0) % Baso % (Auto) 0.2 (0.0-1.5) % Neut # (Auto) 3.7 (1.4-5.7) K/uL Lymph # (Auto) 1.3 (0.6-2.4) K/uL Elliott # (Auto) 0.4 (0.0-0.8) K/uL Eos # (Auto) 0.0 (0.0-0.7) K/uL Baso # (Auto) 0.0 (0.0-0.1) K/uL Nucleated RBC % 0.0 /100WBC Nucleated RBCs # 0 K/uL Sodium 140 (136-148) mmol/L Potassium 4.0 (3.5-5.1) mmol/L Chloride 105 (98-107) mmol/L Carbon Dioxide 27.4 (21.0-32.0) mmol/L BUN 28 H (7.0-18.0) mg/dL Creatinine 1.6 H (0.8-1.3) mg/dL Est Cr Clr Drug Dosing 51.64 mL/min Estimated GFR (MDRD) 53.5 ml/min Glucose 116 H (74-106) mg/dL POC Glucose (60-110) mg/dL Hemoglobin A1c (4.5 - 6.2) % Calcium 8.8 (8.5-10.1) mg/dL Phosphorus (2.6-4.7) mg/dL Magnesium (1.8-2.4) mg/dL Total Bilirubin 0.7 (0.2-1.0) mg/dL AST 111 H (15-37) IU/L ALT 154 H (14-63) IU/L Alkaline Phosphatase 68 (46-116) U/L Troponin I 0.112 H* (0.000-0.056) ng/mL B-Natriuretic Peptide 3066 H (<100) PG/ML Total Protein 6.5 (6.4-8.2) g/dL Albumin 3.4 (3.4-5.0) g/dL Globulin 3.1 (2.6-4.0) g/dL Albumin/Globulin Ratio 1.1 (0.9-1.6) Triglycerides (0-200) mg/dL Cholesterol (50-200) mg/dL LDL Cholesterol, Calc (60-180) mg/dL VLDL Cholesterol (5-55) mg/dL HDL Cholesterol (40-60) mg/dL Cholesterol/HDL Ratio (3.3-6.0) TSH 3rd Generation (0.36-3.74) uIU/mL Urine Opiates Screen (NEGATIVE) Ur Oxycodone Screen (NEGATIVE) Urine Methadone Screen (NEGATIVE) Ur Barbiturates Screen (NEGATIVE) Ur Phencyclidine Scrn (NEGATIVE) Ur Amphetamine Screen (NEGATIVE) U Methamphetamines Scrn (NEGATIVE) U Benzodiazepines Scrn (NEGATIVE) U Cocaine Metab Screen (NEGATIVE) U Marijuana (THC) Screen (NEGATIVE) SARS-CoV-2 RNA (SCOTT) (NEGATIVE) 07/19/20 07/19/20 07/19/20 Range/Units 17:40 17:40 18:50 WBC (4.0-11.0) K/uL RBC (4.50-5.90) M/uL Hgb (13.0-17.0) g/dL Hct (38.0-50.0) % MCV (80.0-98.0) fL MCH (27.0-32.0) pg MCHC (31.0-37.0) g/dL RDW Std Deviation (28.0-62.0) fl RDW Coeff of Chuy (11.0-15.0) % Plt Count (150-400) K/uL MPV (7.40-12.00) fL Neut % (Auto) (48.0-80.0) % Lymph % (Auto) (16.0-40.0) % Elliott % (Auto) (0.0-15.0) % Eos % (Auto) (0.0-7.0) % Baso % (Auto) (0.0-1.5) % Neut # (Auto) (1.4-5.7) K/uL Lymph # (Auto) (0.6-2.4) K/uL Elliott # (Auto) (0.0-0.8) K/uL Eos # (Auto) (0.0-0.7) K/uL Baso # (Auto) (0.0-0.1) K/uL Nucleated RBC % /100WBC Nucleated RBCs # K/uL Sodium (136-148) mmol/L Potassium (3.5-5.1) mmol/L Chloride (98-107) mmol/L Carbon Dioxide (21.0-32.0) mmol/L BUN (7.0-18.0) mg/dL Creatinine (0.8-1.3) mg/dL Est Cr Clr Drug Dosing mL/min Estimated GFR (MDRD) ml/min Glucose (74-106) mg/dL POC Glucose (60-110) mg/dL Hemoglobin A1c 6.6 H (4.5 - 6.2) % Calcium (8.5-10.1) mg/dL Phosphorus (2.6-4.7) mg/dL Magnesium (1.8-2.4) mg/dL Total Bilirubin (0.2-1.0) mg/dL AST (15-37) IU/L ALT (14-63) IU/L Alkaline Phosphatase (46-116) U/L Troponin I (0.000-0.056) ng/mL B-Natriuretic Peptide (<100) PG/ML Total Protein (6.4-8.2) g/dL Albumin (3.4-5.0) g/dL Globulin (2.6-4.0) g/dL Albumin/Globulin Ratio (0.9-1.6) Triglycerides (0-200) mg/dL Cholesterol (50-200) mg/dL LDL Cholesterol, Calc (60-180) mg/dL VLDL Cholesterol (5-55) mg/dL HDL Cholesterol (40-60) mg/dL Cholesterol/HDL Ratio (3.3-6.0) TSH 3rd Generation 1.08 (0.36-3.74) uIU/mL Urine Opiates Screen (NEGATIVE) Ur Oxycodone Screen (NEGATIVE) Urine Methadone Screen (NEGATIVE) Ur Barbiturates Screen (NEGATIVE) Ur Phencyclidine Scrn (NEGATIVE) Ur Amphetamine Screen (NEGATIVE) U Methamphetamines Scrn (NEGATIVE) U Benzodiazepines Scrn (NEGATIVE) U Cocaine Metab Screen (NEGATIVE) U Marijuana (THC) Screen (NEGATIVE) SARS-CoV-2 RNA (SCOTT) NEGATIVE (NEGATIVE) 07/19/20 07/19/20 07/19/20 Range/Units 19:40 22:30 22:45 WBC (4.0-11.0) K/uL RBC (4.50-5.90) M/uL Hgb (13.0-17.0) g/dL Hct (38.0-50.0) % MCV (80.0-98.0) fL MCH (27.0-32.0) pg MCHC (31.0-37.0) g/dL RDW Std Deviation (28.0-62.0) fl RDW Coeff of Chuy (11.0-15.0) % Plt Count (150-400) K/uL MPV (7.40-12.00) fL Neut % (Auto) (48.0-80.0) % Lymph % (Auto) (16.0-40.0) % Elliott % (Auto) (0.0-15.0) % Eos % (Auto) (0.0-7.0) % Baso % (Auto) (0.0-1.5) % Neut # (Auto) (1.4-5.7) K/uL Lymph # (Auto) (0.6-2.4) K/uL Elliott # (Auto) (0.0-0.8) K/uL Eos # (Auto) (0.0-0.7) K/uL Baso # (Auto) (0.0-0.1) K/uL Nucleated RBC % /100WBC Nucleated RBCs # K/uL Sodium (136-148) mmol/L Potassium (3.5-5.1) mmol/L Chloride (98-107) mmol/L Carbon Dioxide (21.0-32.0) mmol/L BUN (7.0-18.0) mg/dL Creatinine (0.8-1.3) mg/dL Est Cr Clr Drug Dosing mL/min Estimated GFR (MDRD) ml/min Glucose (74-106) mg/dL POC Glucose (60-110) mg/dL Hemoglobin A1c (4.5 - 6.2) % Calcium (8.5-10.1) mg/dL Phosphorus 3.8 (2.6-4.7) mg/dL Magnesium 1.7 L (1.8-2.4) mg/dL Total Bilirubin (0.2-1.0) mg/dL AST (15-37) IU/L ALT (14-63) IU/L Alkaline Phosphatase (46-116) U/L Troponin I 0.109 H* 0.130 H* (0.000-0.056) ng/mL B-Natriuretic Peptide (<100) PG/ML Total Protein (6.4-8.2) g/dL Albumin (3.4-5.0) g/dL Globulin (2.6-4.0) g/dL Albumin/Globulin Ratio (0.9-1.6) Triglycerides (0-200) mg/dL Cholesterol (50-200) mg/dL LDL Cholesterol, Calc (60-180) mg/dL VLDL Cholesterol (5-55) mg/dL HDL Cholesterol (40-60) mg/dL Cholesterol/HDL Ratio (3.3-6.0) TSH 3rd Generation (0.36-3.74) uIU/mL Urine Opiates Screen NEGATIVE (NEGATIVE) Ur Oxycodone Screen NEGATIVE (NEGATIVE) Urine Methadone Screen NEGATIVE (NEGATIVE) Ur Barbiturates Screen NEGATIVE (NEGATIVE) Ur Phencyclidine Scrn NEGATIVE (NEGATIVE) Ur Amphetamine Screen NEGATIVE (NEGATIVE) U Methamphetamines Scrn NEGATIVE (NEGATIVE) U Benzodiazepines Scrn NEGATIVE (NEGATIVE) U Cocaine Metab Screen NEGATIVE (NEGATIVE) U Marijuana (THC) Screen NEGATIVE (NEGATIVE) SARS-CoV-2 RNA (SCOTT) (NEGATIVE) 07/20/20 07/20/20 07/20/20 Range/Units 02:00 05:18 05:18 WBC 5.69 (4.0-11.0) K/uL RBC 4.56 (4.50-5.90) M/uL Hgb 14.5 (13.0-17.0) g/dL Hct 44.0 (38.0-50.0) % MCV 96.5 (80.0-98.0) fL MCH 31.8 (27.0-32.0) pg MCHC 33.0 (31.0-37.0) g/dL RDW Std Deviation 54.8 (28.0-62.0) fl RDW Coeff of Chuy 16 H (11.0-15.0) % Plt Count 201 (150-400) K/uL MPV 12.60 H (7.40-12.00) fL Neut % (Auto) 89.5 H (48.0-80.0) % Lymph % (Auto) 7.6 L (16.0-40.0) % Elliott % (Auto) 2.3 (0.0-15.0) % Eos % (Auto) 0.4 (0.0-7.0) % Baso % (Auto) 0.2 (0.0-1.5) % Neut # (Auto) 5.1 (1.4-5.7) K/uL Lymph # (Auto) 0.4 L (0.6-2.4) K/uL Elliott # (Auto) 0.1 (0.0-0.8) K/uL Eos # (Auto) 0.0 (0.0-0.7) K/uL Baso # (Auto) 0.0 (0.0-0.1) K/uL Nucleated RBC % 0.0 /100WBC Nucleated RBCs # 0 K/uL Sodium 140 (136-148) mmol/L Potassium 4.7 (3.5-5.1) mmol/L Chloride 103 (98-107) mmol/L Carbon Dioxide 31.9 (21.0-32.0) mmol/L BUN 25 H (7.0-18.0) mg/dL Creatinine 1.6 H (0.8-1.3) mg/dL Est Cr Clr Drug Dosing 51.64 mL/min Estimated GFR (MDRD) 53.5 ml/min Glucose 127 H (74-106) mg/dL POC Glucose (60-110) mg/dL Hemoglobin A1c (4.5 - 6.2) % Calcium 8.5 (8.5-10.1) mg/dL Phosphorus 3.8 (2.6-4.7) mg/dL Magnesium 2.5 H (1.8-2.4) mg/dL Total Bilirubin 0.4 (0.2-1.0) mg/dL AST 74 H (15-37) IU/L ALT 135 H (14-63) IU/L Alkaline Phosphatase 63 (46-116) U/L Troponin I 0.139 H* (0.000-0.056) ng/mL B-Natriuretic Peptide (<100) PG/ML Total Protein 6.2 L (6.4-8.2) g/dL Albumin 3.2 L (3.4-5.0) g/dL Globulin 3.0 (2.6-4.0) g/dL Albumin/Globulin Ratio 1.1 (0.9-1.6) Triglycerides 63 (0-200) mg/dL Cholesterol 164 (50-200) mg/dL LDL Cholesterol, Calc 84 (60-180) mg/dL VLDL Cholesterol 12 (5-55) mg/dL HDL Cholesterol 67 H (40-60) mg/dL Cholesterol/HDL Ratio 2.4 L (3.3-6.0) TSH 3rd Generation (0.36-3.74) uIU/mL Urine Opiates Screen (NEGATIVE) Ur Oxycodone Screen (NEGATIVE) Urine Methadone Screen (NEGATIVE) Ur Barbiturates Screen (NEGATIVE) Ur Phencyclidine Scrn (NEGATIVE) Ur Amphetamine Screen (NEGATIVE) U Methamphetamines Scrn (NEGATIVE) U Benzodiazepines Scrn (NEGATIVE) U Cocaine Metab Screen (NEGATIVE) U Marijuana (THC) Screen (NEGATIVE) SARS-CoV-2 RNA (SCOTT) (NEGATIVE) 07/20/20 07/20/20 07/20/20 Range/Units 06:58 09:36 09:36 WBC (4.0-11.0) K/uL RBC (4.50-5.90) M/uL Hgb (13.0-17.0) g/dL Hct (38.0-50.0) % MCV (80.0-98.0) fL MCH (27.0-32.0) pg MCHC (31.0-37.0) g/dL RDW Std Deviation (28.0-62.0) fl RDW Coeff of Chuy (11.0-15.0) % Plt Count (150-400) K/uL MPV (7.40-12.00) fL Neut % (Auto) (48.0-80.0) % Lymph % (Auto) (16.0-40.0) % Elliott % (Auto) (0.0-15.0) % Eos % (Auto) (0.0-7.0) % Baso % (Auto) (0.0-1.5) % Neut # (Auto) (1.4-5.7) K/uL Lymph # (Auto) (0.6-2.4) K/uL Elliott # (Auto) (0.0-0.8) K/uL Eos # (Auto) (0.0-0.7) K/uL Baso # (Auto) (0.0-0.1) K/uL Nucleated RBC % /100WBC Nucleated RBCs # K/uL Sodium (136-148) mmol/L Potassium (3.5-5.1) mmol/L Chloride (98-107) mmol/L Carbon Dioxide (21.0-32.0) mmol/L BUN (7.0-18.0) mg/dL Creatinine (0.8-1.3) mg/dL Est Cr Clr Drug Dosing mL/min Estimated GFR (MDRD) ml/min Glucose (74-106) mg/dL POC Glucose 138 H (60-110) mg/dL Hemoglobin A1c (4.5 - 6.2) % Calcium (8.5-10.1) mg/dL Phosphorus (2.6-4.7) mg/dL Magnesium (1.8-2.4) mg/dL Total Bilirubin (0.2-1.0) mg/dL AST (15-37) IU/L ALT (14-63) IU/L Alkaline Phosphatase (46-116) U/L Troponin I 0.082 H* (0.000-0.056) ng/mL B-Natriuretic Peptide 3627 H (<100) PG/ML Total Protein (6.4-8.2) g/dL Albumin (3.4-5.0) g/dL Globulin (2.6-4.0) g/dL Albumin/Globulin Ratio (0.9-1.6) Triglycerides (0-200) mg/dL Cholesterol (50-200) mg/dL LDL Cholesterol, Calc (60-180) mg/dL VLDL Cholesterol (5-55) mg/dL HDL Cholesterol (40-60) mg/dL Cholesterol/HDL Ratio (3.3-6.0) TSH 3rd Generation (0.36-3.74) uIU/mL Urine Opiates Screen (NEGATIVE) Ur Oxycodone Screen (NEGATIVE) Urine Methadone Screen (NEGATIVE) Ur Barbiturates Screen (NEGATIVE) Ur Phencyclidine Scrn (NEGATIVE) Ur Amphetamine Screen (NEGATIVE) U Methamphetamines Scrn (NEGATIVE) U Benzodiazepines Scrn (NEGATIVE) U Cocaine Metab Screen (NEGATIVE) U Marijuana (THC) Screen (NEGATIVE) SARS-CoV-2 RNA (SCOTT) (NEGATIVE) 07/20/20 Range/Units 12:55 WBC (4.0-11.0) K/uL RBC (4.50-5.90) M/uL Hgb (13.0-17.0) g/dL Hct (38.0-50.0) % MCV (80.0-98.0) fL MCH (27.0-32.0) pg MCHC (31.0-37.0) g/dL RDW Std Deviation (28.0-62.0) fl RDW Coeff of Chuy (11.0-15.0) % Plt Count (150-400) K/uL MPV (7.40-12.00) fL Neut % (Auto) (48.0-80.0) % Lymph % (Auto) (16.0-40.0) % Elliott % (Auto) (0.0-15.0) % Eos % (Auto) (0.0-7.0) % Baso % (Auto) (0.0-1.5) % Neut # (Auto) (1.4-5.7) K/uL Lymph # (Auto) (0.6-2.4) K/uL Elliott # (Auto) (0.0-0.8) K/uL Eos # (Auto) (0.0-0.7) K/uL Baso # (Auto) (0.0-0.1) K/uL Nucleated RBC % /100WBC Nucleated RBCs # K/uL Sodium (136-148) mmol/L Potassium (3.5-5.1) mmol/L Chloride (98-107) mmol/L Carbon Dioxide (21.0-32.0) mmol/L BUN (7.0-18.0) mg/dL Creatinine (0.8-1.3) mg/dL Est Cr Clr Drug Dosing mL/min Estimated GFR (MDRD) ml/min Glucose (74-106) mg/dL POC Glucose 183 H (60-110) mg/dL Hemoglobin A1c (4.5 - 6.2) % Calcium (8.5-10.1) mg/dL Phosphorus (2.6-4.7) mg/dL Magnesium (1.8-2.4) mg/dL Total Bilirubin (0.2-1.0) mg/dL AST (15-37) IU/L ALT (14-63) IU/L Alkaline Phosphatase (46-116) U/L Troponin I (0.000-0.056) ng/mL B-Natriuretic Peptide (<100) PG/ML Total Protein (6.4-8.2) g/dL Albumin (3.4-5.0) g/dL Globulin (2.6-4.0) g/dL Albumin/Globulin Ratio (0.9-1.6) Triglycerides (0-200) mg/dL Cholesterol (50-200) mg/dL LDL Cholesterol, Calc (60-180) mg/dL VLDL Cholesterol (5-55) mg/dL HDL Cholesterol (40-60) mg/dL Cholesterol/HDL Ratio (3.3-6.0) TSH 3rd Generation (0.36-3.74) uIU/mL Urine Opiates Screen (NEGATIVE) Ur Oxycodone Screen (NEGATIVE) Urine Methadone Screen (NEGATIVE) Ur Barbiturates Screen (NEGATIVE) Ur Phencyclidine Scrn (NEGATIVE) Ur Amphetamine Screen (NEGATIVE) U Methamphetamines Scrn (NEGATIVE) U Benzodiazepines Scrn (NEGATIVE) U Cocaine Metab Screen (NEGATIVE) U Marijuana (THC) Screen (NEGATIVE) SARS-CoV-2 RNA (SCOTT) (NEGATIVE) Med Orders - Current: Current Medications Albuterol/Ipratropium (Duoneb 3.0-0.5 Mg/3 Ml) 3 ml NEB Q4HRRT PRN PRN Reason: Shortness Of Breath/wheezing Last Admin: 07/20/20 06:56 Dose: 3 ml Documented by: Aspirin (Aspirin) 81 mg PO DAILY [facility] Last Admin: 07/20/20 08:53 Dose: 81 mg Documented by: Atorvastatin Calcium (Lipitor) 40 mg PO DAILY [facility] Last Admin: 07/20/20 08:53 Dose: 40 mg Documented by: Dextrose/Water (Dextrose 50% In Water) 50 ml IV ASDIRECTED PRN PRN Reason: Hypoglycemia Enoxaparin Sodium (Lovenox) 90 mg 1 mg/kg (90 mg) SUBCUT Q12H [facility] Last Admin: 07/20/20 11:49 Dose: 90 mg Documented by: Furosemide (Lasix) 40 mg IVPUSH TID [facility] Glucagon (Glucagen) 1 mg IM ASDIRECTED PRN PRN Reason: Hypoglycemia Ceftriaxone Sodium/Dextrose 1 (gm/ Premix) 50 mls @ 100 mls/hr IV Q24H [facility] Last Admin: 07/20/20 09:05 Dose: 100 mls/hr Documented by: Azithromycin 250 mg/ Sodium (Chloride) 250 mls @ 250 mls/hr IV Q24H [facility] Last Admin: 07/20/20 09:56 Dose: 250 mls/hr Documented by: Insulin Aspart (Novolog) 0 unit SUBCUT TIDAC [facility]; Protocol Last Admin: 07/20/20 09:08 Dose: Not Given Documented by: Methylprednisolone Sodium Succinate (Solu-Medrol) 40 mg IVPUSH Q8H [facility] Last Admin: 07/20/20 08:57 Dose: 40 mg Documented by: Ondansetron HCl (Zofran) 4 mg IVPUSH Q4H PRN PRN Reason: Nausea/Vomiting Sodium Chloride (Saline Flush) 10 ml FLUSH ASDIRECTED PRN PRN Reason: Keep Vein Open Last Admin: 07/19/20 19:33 Dose: 10 ml Documented by: Sodium Chloride (Saline Flush) 2.5 ml FLUSH ASDIRECTED PRN PRN Reason: Keep Vein Open Last Admin: 07/19/20 19:33 Dose: 2.5 ml Documented by: Discontinued Medications Albuterol/Ipratropium (Duoneb 3.0-0.5 Mg/3 Ml) 3 ml NEB ONETIME ONE Stop: 07/19/20 17:29 Last Admin: 07/19/20 17:40 Dose: 3 ml Documented by: Aspirin (Aspirin) 325 mg PO ONETIME ONE Stop: 07/19/20 21:06 Last Admin: 07/19/20 22:45 Dose: 325 mg Documented by: Azithromycin (Zithromax) 500 mg PO Q24H ONE Stop: 07/19/20 19:23 Last Admin: 07/19/20 19:32 Dose: 500 mg Documented by: Diltiazem HCl (Diltiazem) 20 mg IVPUSH ONETIME ONE Stop: 07/20/20 00:40 Last Admin: 07/20/20 01:21 Dose: 20 mg Documented by: Enoxaparin Sodium (Lovenox) 40 mg SUBCUT Q24H TONY Last Admin: 07/19/20 22:44 Dose: 40 mg Documented by: Enoxaparin Sodium (Lovenox) 50 mg SUBCUT ONETIME ONE Stop: 07/19/20 23:59 Last Admin: 07/20/20 00:30 Dose: 50 mg Documented by: Furosemide (Lasix) 40 mg IVPUSH NOW ONE Stop: 07/19/20 18:15 Last Admin: 07/19/20 18:50 Dose: 40 mg Documented by: Furosemide (Lasix) 40 mg IVPUSH BID TONY Last Admin: 07/20/20 09:01 Dose: 40 mg Documented by: Furosemide (Lasix) 40 mg IVPUSH BIDDIURETIC TONY Ceftriaxone Sodium/Dextrose 1 (gm/ Premix) 50 mls @ 100 mls/hr IV ONETIME ONE Stop: 07/19/20 19:52 Last Admin: 07/19/20 19:32 Dose: 100 mls/hr Documented by: Ceftriaxone Sodium 1 gm/ (Sodium Chloride) 50 mls @ 100 mls/hr IV Q24H TONY Magnesium Sulfate (Magnesium Sulfate In Water Premix) 4 gm in 100 mls @ 50 mls/hr IV ONETIME ONE Stop: 07/20/20 01:34 Last Admin: 07/20/20 00:24 Dose: 50 mls/hr Documented by: Magnesium Sulfate (Magnesium Sulfate In Water Premix) Confirm Administered Dose 100 mls @ as directed .ROUTE .STK-MED ONE Stop: 07/20/20 00:23 Last Admin: 07/20/20 00:27 Dose: Not Given Documented by: - Exam Quality Assessment: Supplemental Oxygen General: Alert, Oriented, Cooperative Neck: Supple Lungs: Decreased Breath Sounds, Crackles, Rales Cardiovascular: Regular Rate, Regular Rhythm GI/Abdominal Exam: Normal Bowel Sounds, Soft, Distended. No: Hepatomegaly, Splenomegaly Extremities: Pedal Edema Skin: Warm, Dry, Intact Sepsis Event Note - Evaluation Sepsis Screening Result: No Definite Risk - Focused Exam Vital Signs: Vital Signs Temp Pulse Resp BP Pulse Ox Pulse Ox 07/20/20 11:29 36.2 C 88 16 127/86 93 L 07/20/20 08:00 36.4 C 51 L 18 103/78 92 L 07/20/20 04:36 36.6 C 88 22 H 125/90 96 07/20/20 02:08 92 L 07/20/20 01:52 96 07/20/20 01:16 102 H 117/93 H 97 - Problem List & Annotations (1) CHF exacerbation SNOMED Code(s): 770282178, 48655096555358 Code(s): I50.9 - HEART FAILURE, UNSPECIFIED Status: Acute Current Visit: No Qualifiers: Heart failure type: unspecified Qualified Code(s): I50.9 - Heart failure, unspecified (2) COPD exacerbation SNOMED Code(s): 001448241 Code(s): J44.1 - CHRONIC OBSTRUCTIVE PULMONARY DISEASE W (ACUTE) EXACERBATION Status: Acute Current Visit: No (3) Cardiomegaly SNOMED Code(s): 9454817 Code(s): I51.7 - CARDIOMEGALY Status: Acute Current Visit: No (4) Cocaine abuse SNOMED Code(s): 47240282 Code(s): F14.10 - COCAINE ABUSE, UNCOMPLICATED Status: Acute Current Visit: No (5) Elevated troponin SNOMED Code(s): 816149521, 858511085, 087891369 Code(s): R77.8 - OTHER SPECIFIED ABNORMALITIES OF PLASMA PROTEINS Status: Acute Current Visit: No (6) Pneumonia SNOMED Code(s): 829702927 Code(s): J18.9 - PNEUMONIA, UNSPECIFIED ORGANISM Status: Acute Current Visit: No Qualifiers: Pneumonia type: due to unspecified organism (7) Hypomagnesemia SNOMED Code(s): 922783143 Code(s): E83.42 - HYPOMAGNESEMIA Status: Acute Current Visit: Yes (8) Transaminitis SNOMED Code(s): 403278853, 543611274 Code(s): R74.01 - ELEVATION OF LEVELS OF LIVER TRANSAMINASE LEVELS Status: Acute Current Visit: Yes - Problem List Review Problem List Initiated/Reviewed/Updated: Yes - My Orders Last 24 Hours: My Active Orders 07/19/20 Dinner Heart Healthy Diet [DIET] 07/19/20 20:44 Ambulate [RC] ASDIRECTED Pulse Oximetry [RC] PRN VTE/DVT Education [RC] PER UNIT ROUTINE Vital Signs [RC] Q4H Albuterol/Ipratropium [DuoNeb 3.0-0.5 MG/3 ML] 3 ml NEB Q4HRRT PRN Ondansetron [Zofran] 4 mg IVPUSH Q4H PRN Sequential Compression Device [OM.PC] Per Unit Routine 07/19/20 20:45 Antiembolic Devices [RC] PER UNIT ROUTINE RT Aerosol Therapy [RC] ASDIRECTED 07/19/20 20:47 Echo Comp wo Cont [US] Stat 07/19/20 21:21 Oxygen Therapy [RC] ASDIRECTED 07/19/20 23:45 Enoxaparin [Lovenox] 90 mg SUBCUT Q12H 07/20/20 00:45 methylPREDNISolone Sod Succ [Solu-MEDROL] 40 mg IVPUSH Q8H 07/20/20 02:25 Dextrose 50% in Water 50 ml IV ASDIRECTED PRN Glucagon,Human Recombinant [GlucaGen] 1 mg IM ASDIRECTED PRN 07/20/20 Breakfast Fluid Restriction [DIET] 07/20/20 07:30 Insulin Aspart [NovoLOG] See Protocol SUBCUT TIDAC 07/20/20 09:00 Aspirin 81 mg PO DAILY atorvaSTATin [Lipitor] 40 mg PO DAILY cefTRIAXone [Rocephin in Dextrose,Iso-Osm 1 GM/50 ML] 1 gm Premix Bag 1 bag IV Q24H 07/20/20 09:30 Azithromycin [Zithromax] 250 mg Sodium Chloride 0.9% [Normal Saline] 250 ml IV Q24H 07/20/20 14:00 Furosemide [Lasix] 40 mg IVPUSH TID - Plan Plan:: 59 y/o M admitted for SOB Likely CHF exacerbation. Possible CAP as well. Underlying COPD with wheezing Tele showing possible Aflutter, EKG shows sinus tachycardia, no STEMI Troponins elevated, likely type 2 leak secondary to fluid overload and demand supply ischemia, along with decreased excretion due to renal insufficiency, no chest pain, SOB has improved, trend shows troponins are trending down, will stop trending Transaminitis likely due to hepatic congestion, trending down cont IV antibiotics con IV Lasix, and IV steroids cont DuoNebs cont Antiplatelet and anticoagulation with Lovenox, watch for bleeding cont atorvastatin Start B chey once acute chf has resolved monitor creatinine, switch to heparin if worsening VIOLETTE 2D ECHO UDS negative Monitor and replete electrolytes as needed
[2020-07-20] MEDS ORDERED: Furosemide 40 MG/4 ML VIAL IVPUSH SCH (14:00)
[2020-07-20] MEDS: Albuterol/Ipratropium 4 GM Inhalation Spray INH PRN ×2 (17:42→20:45)
[2020-07-21] MEDS: Enoxaparin 100 MG/1 ML Syringe SUBCUT SCH ×2 (00:05→13:00)
[2020-07-21] MEDS: methylPREDNISolone Sodium Succinate 40 MG/1 ML SDV IVPUSH SCH ×3 (00:06→21:33)
[2020-07-21] MEDS: Albuterol/Ipratropium 4 GM Inhalation Spray INH PRN (00:14)
[2020-07-21 06:47] LABS: CARBON DIOXIDE,CO2 34.6 mmol/L (21.0-32.0); POTASSIUM,K 4.1 mmol/L (3.5-5.1)
[2020-07-21] MEDS: Furosemide 40 MG/4 ML VIAL IVPUSH SCH ×3 (06:59→21:33)
[2020-07-21] MEDS: cefTRIAXone 1 GM in Premix Bag 1 BAG IV SCH (09:21)
[2020-07-21] MEDS: atorvaSTATin 40 MG Tab PO SCH (09:24)
[2020-07-21] MEDS: Aspirin 81 MG Tab.Chew PO SCH (09:24)
[2020-07-21] MEDS: Insulin Aspart 100 Units/ML 3 ML Pen SUBCUT SCH ×3 (09:29→17:54)
[2020-07-21] MEDS: Azithromycin 250 MG in Sodium Chloride 0.9% 250 ML IV SCH ×2 (10:32→13:00)
--- NOTE | 2020-07-21 12:00 | PCM.PN ---
- General Info Date of Service: 07/21/20 Admission Dx/Problem (Free Text): Admission Diagnosis/Problem Admission Diagnosis/Problem CHF, Congestive heart failure Subjective Update: Reports he is feeling improved this morning. Peripheral edema continues to improve. Had a rough evening when his inhaler was taken away from him. [place] quite anxious when this was not within his reach. Denies any chest pain. Reports shortness of breath has improved continues to have wheezing intermittently. Otherwise he continues to feel improved. Functional Status: Reports: Pain Controlled, Tolerating Diet, Ambulating - Review of Systems General: Reports: No Symptoms. Denies: Weakness, Fatigue, Malaise Pulmonary: Reports: Shortness of Breath, Wheezing. Denies: Cough Cardiovascular: Reports: Dyspnea on Exertion, Edema (Improving). Denies: Chest Pain Gastrointestinal: Reports: No Symptoms. Denies: Nausea, Vomiting Genitourinary: Reports: No Symptoms. Denies: Dysuria, Frequency, Burning Musculoskeletal: Reports: No Symptoms Skin: Reports: No Symptoms Neurological: Reports: No Symptoms Psychiatric: Reports: No Symptoms - Patient Data Vitals - Most Recent: Last Vital Signs Temp 97.5 F 07/21/20 11:21 Pulse 85 07/21/20 11:21 Resp 16 07/21/20 11:21 BP 117/74 07/21/20 11:21 Pulse Ox 94 L 07/21/20 11:21 Weight - Most Recent: 90.401 kg I&O - Last 24 Hours: Intake & Output 07/20/20 07/21/20 07/21/20 22:59 06:59 14:59 Intake Total 1050 750 Output Total 1400 1470 Balance -350 -720 Lab Results Last 24 Hours: Laboratory Results - last 24 hr 07/20/20 07/20/20 07/21/20 Range/Units 12:55 17:18 05:55 WBC 9.05 (4.0-11.0) K/uL RBC 4.50 (4.50-5.90) M/uL Hgb 14.2 (13.0-17.0) g/dL Hct 43.0 (38.0-50.0) % MCV 95.6 (80.0-98.0) fL MCH 31.6 (27.0-32.0) pg MCHC 33.0 (31.0-37.0) g/dL RDW Std Deviation 53.7 (28.0-62.0) fl RDW Coeff of Chuy 15 (11.0-15.0) % Plt Count 145 L (150-400) K/uL MPV 12.50 H (7.40-12.00) fL Neut % (Auto) 93.6 H (48.0-80.0) % Lymph % (Auto) 4.6 L (16.0-40.0) % Johnston % (Auto) 1.8 (0.0-15.0) % Eos % (Auto) 0.0 (0.0-7.0) % Baso % (Auto) 0.0 (0.0-1.5) % Neut # (Auto) 8.5 H (1.4-5.7) K/uL Lymph # (Auto) 0.4 L (0.6-2.4) K/uL Johnston # (Auto) 0.2 (0.0-0.8) K/uL Eos # (Auto) 0.0 (0.0-0.7) K/uL Baso # (Auto) 0.0 (0.0-0.1) K/uL Nucleated RBC % 0.0 /100WBC Nucleated RBCs # 0 K/uL Sodium (136-148) mmol/L Potassium (3.5-5.1) mmol/L Chloride (98-107) mmol/L Carbon Dioxide (21.0-32.0) mmol/L BUN (7.0-18.0) mg/dL Creatinine (0.8-1.3) mg/dL Est Cr Clr Drug Dosing mL/min Estimated GFR (MDRD) ml/min Glucose (74-106) mg/dL POC Glucose 183 H 149 H (60-110) mg/dL Calcium (8.5-10.1) mg/dL Phosphorus (2.6-4.7) mg/dL Magnesium (1.8-2.4) mg/dL 07/21/20 07/21/20 07/21/20 Range/Units 05:55 07:35 11:28 WBC (4.0-11.0) K/uL RBC (4.50-5.90) M/uL Hgb (13.0-17.0) g/dL Hct (38.0-50.0) % MCV (80.0-98.0) fL MCH (27.0-32.0) pg MCHC (31.0-37.0) g/dL RDW Std Deviation (28.0-62.0) fl RDW Coeff of Chuy (11.0-15.0) % Plt Count (150-400) K/uL MPV (7.40-12.00) fL Neut % (Auto) (48.0-80.0) % Lymph % (Auto) (16.0-40.0) % Johnston % (Auto) (0.0-15.0) % Eos % (Auto) (0.0-7.0) % Baso % (Auto) (0.0-1.5) % Neut # (Auto) (1.4-5.7) K/uL Lymph # (Auto) (0.6-2.4) K/uL Johnston # (Auto) (0.0-0.8) K/uL Eos # (Auto) (0.0-0.7) K/uL Baso # (Auto) (0.0-0.1) K/uL Nucleated RBC % /100WBC Nucleated RBCs # K/uL Sodium 141 (136-148) mmol/L Potassium 4.1 (3.5-5.1) mmol/L Chloride 103 (98-107) mmol/L Carbon Dioxide 34.6 H (21.0-32.0) mmol/L BUN 32 H (7.0-18.0) mg/dL Creatinine 1.5 H (0.8-1.3) mg/dL Est Cr Clr Drug Dosing 55.08 mL/min Estimated GFR (MDRD) 57.7 ml/min Glucose 144 H (74-106) mg/dL POC Glucose 147 H 164 H (60-110) mg/dL Calcium 8.5 (8.5-10.1) mg/dL Phosphorus 4.1 (2.6-4.7) mg/dL Magnesium 2.0 (1.8-2.4) mg/dL Med Orders - Current: Current Medications Albuterol/Ipratropium (Duoneb 3.0-0.5 Mg/3 Ml) 3 ml NEB Q4HRRT PRN PRN Reason: Shortness Of Breath/wheezing Last Admin: 07/20/20 13:21 Dose: 3 ml Documented by: Albuterol/Ipratropium (Combivent Respimat) 0 gm INH Q4H PRN PRN Reason: Dyspnea Last Admin: 07/21/20 00:14 Dose: 1 puff Documented by: Aspirin (Aspirin) 81 mg PO DAILY [facility] Last Admin: 07/21/20 09:24 Dose: 81 mg Documented by: Atorvastatin Calcium (Lipitor) 40 mg PO DAILY [facility] Last Admin: 07/21/20 09:24 Dose: 40 mg Documented by: Dextrose/Water (Dextrose 50% In Water) 50 ml IV ASDIRECTED PRN PRN Reason: Hypoglycemia Enoxaparin Sodium (Lovenox) 90 mg 1 mg/kg (90 mg) SUBCUT Q12H [facility] Last Admin: 07/21/20 00:05 Dose: 90 mg Documented by: Furosemide (Lasix) 40 mg IVPUSH TID [facility] Last Admin: 07/21/20 06:59 Dose: 40 mg Documented by: Glucagon (Glucagen) 1 mg IM ASDIRECTED PRN PRN Reason: Hypoglycemia Ceftriaxone Sodium/Dextrose 1 (gm/ Premix) 50 mls @ 100 mls/hr IV Q24H [facility] Last Admin: 07/21/20 09:21 Dose: 100 mls/hr Documented by: Azithromycin 250 mg/ Sodium (Chloride) 250 mls @ 250 mls/hr IV Q24H [facility] Last Admin: 07/21/20 10:32 Dose: 250 mls/hr Documented by: Insulin Aspart (Novolog) 0 unit SUBCUT TIDAC [facility]; Protocol Last Admin: 07/21/20 11:30 Dose: 1 unit Documented by: Methylprednisolone Sodium Succinate (Solu-Medrol) 40 mg IVPUSH Q8H [facility] Last Admin: 07/21/20 09:24 Dose: 40 mg Documented by: Ondansetron HCl (Zofran) 4 mg IVPUSH Q4H PRN PRN Reason: Nausea/Vomiting Sodium Chloride (Saline Flush) 10 ml FLUSH ASDIRECTED PRN PRN Reason: Keep Vein Open Last Admin: 07/19/20 19:33 Dose: 10 ml Documented by: Sodium Chloride (Saline Flush) 2.5 ml FLUSH ASDIRECTED PRN PRN Reason: Keep Vein Open Last Admin: 07/19/20 19:33 Dose: 2.5 ml Documented by: Discontinued Medications Albuterol/Ipratropium (Duoneb 3.0-0.5 Mg/3 Ml) 3 ml NEB ONETIME ONE Stop: 07/19/20 17:29 Last Admin: 07/19/20 17:40 Dose: 3 ml Documented by: Aspirin (Aspirin) 325 mg PO ONETIME ONE Stop: 07/19/20 21:06 Last Admin: 07/19/20 22:45 Dose: 325 mg Documented by: Azithromycin (Zithromax) 500 mg PO Q24H ONE Stop: 07/19/20 19:23 Last Admin: 07/19/20 19:32 Dose: 500 mg Documented by: Diltiazem HCl (Diltiazem) 20 mg IVPUSH ONETIME ONE Stop: 07/20/20 00:40 Last Admin: 07/20/20 01:21 Dose: 20 mg Documented by: Enoxaparin Sodium (Lovenox) 40 mg SUBCUT Q24H TONY Last Admin: 07/19/20 22:44 Dose: 40 mg Documented by: Enoxaparin Sodium (Lovenox) 50 mg SUBCUT ONETIME ONE Stop: 07/19/20 23:59 Last Admin: 07/20/20 00:30 Dose: 50 mg Documented by: Furosemide (Lasix) 40 mg IVPUSH NOW ONE Stop: 07/19/20 18:15 Last Admin: 07/19/20 18:50 Dose: 40 mg Documented by: Furosemide (Lasix) 40 mg IVPUSH BID TONY Last Admin: 07/20/20 09:01 Dose: 40 mg Documented by: Furosemide (Lasix) 40 mg IVPUSH BIDDIURETIC TONY Ceftriaxone Sodium/Dextrose 1 (gm/ Premix) 50 mls @ 100 mls/hr IV ONETIME ONE Stop: 07/19/20 19:52 Last Admin: 07/19/20 19:32 Dose: 100 mls/hr Documented by: Ceftriaxone Sodium 1 gm/ (Sodium Chloride) 50 mls @ 100 mls/hr IV Q24H TONY Magnesium Sulfate (Magnesium Sulfate In Water Premix) 4 gm in 100 mls @ 50 mls/hr IV ONETIME ONE Stop: 07/20/20 01:34 Last Admin: 07/20/20 00:24 Dose: 50 mls/hr Documented by: Magnesium Sulfate (Magnesium Sulfate In Water Premix) Confirm Administered Dose 100 mls @ as directed .ROUTE .STK-MED ONE Stop: 07/20/20 00:23 Last Admin: 07/20/20 00:27 Dose: Not Given Documented by: Azithromycin 250 mg/ Sodium (Chloride) 250 mls @ 250 mls/hr IV Q24H TONY Last Admin: 07/20/20 09:56 Dose: 250 mls/hr Documented by: - Exam General: Alert, Oriented, Cooperative, No Acute Distress Lungs: Rhonchi, Wheezing. No: Normal Respiratory Effort (Dyspnea with speech and exertion) Cardiovascular: Regular Rate, Regular Rhythm GI/Abdominal Exam: Normal Bowel Sounds, Soft, Non-Tender Back Exam: Normal Inspection, Full Range of Motion Extremities: Normal Inspection, Normal Range of Motion, Non-Tender, Pedal Edema (+3 pitting edema bilateral lower extremities extending up to abdomen. Continues to improve from admission) Sepsis Event Note - Evaluation Sepsis Screening Result: No Definite Risk - Focused Exam Vital Signs: Vital Signs Temp Pulse Resp BP Pulse Ox 07/21/20 11:21 97.5 F 85 16 117/74 94 L 07/21/20 07:35 97.1 F 100 16 134/96 H 90 L 07/21/20 01:00 93 L 07/21/20 00:25 97.2 F 98 20 158/96 H 93 L - Problem List & Annotations (1) CHF (congestive heart failure) SNOMED Code(s): 16553163 Code(s): I50.9 - HEART FAILURE, UNSPECIFIED Status: Acute Current Visit: Yes Qualifiers: Heart failure type: unspecified Heart failure chronicity: acute on chronic Qualified Code(s): I50.9 - Heart failure, unspecified (2) Transaminitis SNOMED Code(s): 604914658, 740538220 Code(s): R74.01 - ELEVATION OF LEVELS OF LIVER TRANSAMINASE LEVELS Status: Acute Current Visit: Yes (3) COPD exacerbation SNOMED Code(s): 098848009 Code(s): J44.1 - CHRONIC OBSTRUCTIVE PULMONARY DISEASE W (ACUTE) EXACERBATION Status: Acute Current Visit: No (4) Cardiomegaly SNOMED Code(s): 1297044 Code(s): I51.7 - CARDIOMEGALY Status: Acute Current Visit: No (5) Elevated troponin SNOMED Code(s): 413268237, 434488718, 476500189 Code(s): R77.8 - OTHER SPECIFIED ABNORMALITIES OF PLASMA PROTEINS Status: Acute Current Visit: No (6) Pneumonia SNOMED Code(s): 292394463 Code(s): J18.9 - PNEUMONIA, UNSPECIFIED ORGANISM Status: Acute Current Visit: No Qualifiers: Pneumonia type: due to unspecified organism - Problem List Review Problem List Initiated/Reviewed/Updated: No - My Orders Last 24 Hours: My Active Orders 07/21/20 08:09 Intake and Output Strict [RC] ASDIRECTED - Plan Plan:: 59 y/o M admitted for SOB, COPD exacerbation and CHF along with CAP 1. Acute hypoxic respiratory failure -Likely secondary to combination of COPD CHF and CAP -Continue oxygen as needed keep sats greater than 90%. 2. CHF -Continue Lasix 40 mg 3 times daily -Strict I's and O's fluid restriction and low-sodium diet -Echo pending -We will need prescriptions when discharged. 3. COPD exacerbation -Decrease Solu-Medrol to twice daily -Inhalers as needed along with duo nebs -Oxygen as needed to keep sats greater than 90% -Encourage I-S -Add Advair -RT for COPD education 4. CAP -Continue Rocephin and azithromycin 5. CAD/hypertension/atrial flutter -Continue antiplatelet -New a flutter noted on telemetry, will stop Lovenox subcut and start Eliquis 5 mg twice daily -Echo pending -Troponins elevated but trending down and flat likely secondary to type II leak from CHF and demand ischemia -Consider beta-chey once CHF resolved likely in a.m. VTE prophylaxis: Eliquis CODE STATUS: Full code Dispo: Likely home in a.m.
[2020-07-21] MEDS: Albuterol/Ipratropium 3.0-0.5 MG/3 ML Neb Soln NEB PRN (18:17)
[2020-07-21] MEDS: Fluticasone/Salmeterol 250-50 MCG Inhalation Powder 14/Diskus INH SCH (21:26)
[2020-07-21] MEDS: Apixaban 5 MG Tab PO SCH (21:33)
[2020-07-22 06:07] LABS: POTASSIUM,K 4.3 mmol/L (3.5-5.1)
[2020-07-22] MEDS: Furosemide 40 MG/4 ML VIAL IVPUSH SCH (06:53)
[2020-07-22] MEDS: Apixaban 5 MG Tab PO SCH (08:20)
[2020-07-22] MEDS: Aspirin 81 MG Tab.Chew PO SCH (08:20)
[2020-07-22] MEDS: atorvaSTATin 40 MG Tab PO SCH (08:20)
[2020-07-22] MEDS: Insulin Aspart 100 Units/ML 3 ML Pen SUBCUT SCH ×2 (08:35→12:05)
[2020-07-22] MEDS: cefTRIAXone 1 GM in Premix Bag 1 BAG IV SCH (08:39)
[2020-07-22] MEDS: methylPREDNISolone Sodium Succinate 40 MG/1 ML SDV IVPUSH SCH (08:40)
[2020-07-22] MEDS: Albuterol/Ipratropium 3.0-0.5 MG/3 ML Neb Soln NEB PRN (09:03)
[2020-07-22] MEDS: Fluticasone/Salmeterol 250-50 MCG Inhalation Powder 14/Diskus INH SCH (09:16)
--- NOTE | 2020-07-22 11:51 | PCM.DCSUM1 ---
Discharge Summary - Hospital Course Brief History: This is a 59-year-old male with a past medical history of severe COPD, asthma, NSTEMI, cardiomegaly, and cocaine misuse, hyperlipidemia presenting with shortness of breath. Several visits to the emergency department over the past few weeks for shortness of breath. Was last here on 07/07 in ER for shortness of breath and cough, he left AMA at that time. Today presents to the emergency department complaining of gradually worsening shortness of breath for past 1 week. States he gets SOB upon ambulating few feets. He states that he thinks he is having another COPD exacerbation as he ran out of his meds including steroids. Denies any fever chest discomfort, hemoptysis, or new lower extremity swelling. Does have remote history of a DVT but is not on any anticoagulation, was previously on Warfarin and stopped it on his own and was never restarted. Denies any nausea, vomiting, or other gastrointestinal symptoms. Denies any recent cocaine use. Has stopped smoking since 2 days. Diagnosis: Stroke: No - Discharge Data Discharge Date: 07/22/20 Discharge Disposition: Home, Self-Care 01 Condition: Good - Referral to Home Health Primary Care Physician: PCP None - Discharge Diagnosis/Problem(s) (1) CHF (congestive heart failure) SNOMED Code(s): 46655887 ICD Code: I50.9 - HEART FAILURE, UNSPECIFIED Status: Acute Qualifiers: Heart failure type: unspecified Heart failure chronicity: acute on chronic Qualified Code(s): I50.9 - Heart failure, unspecified (2) Transaminitis SNOMED Code(s): 589696695, 971576945 ICD Code: R74.01 - ELEVATION OF LEVELS OF LIVER TRANSAMINASE LEVELS Status: Acute (3) COPD exacerbation SNOMED Code(s): 857955500 ICD Code: J44.1 - CHRONIC OBSTRUCTIVE PULMONARY DISEASE W (ACUTE) EXACERBATION Status: Acute (4) Cardiomegaly SNOMED Code(s): 5888202 ICD Code: I51.7 - CARDIOMEGALY Status: Acute (5) Elevated troponin SNOMED Code(s): 641791250, 914036683, 950369519 ICD Code: R77.8 - OTHER SPECIFIED ABNORMALITIES OF PLASMA PROTEINS Status: Acute (6) Pneumonia SNOMED Code(s): 855216090 ICD Code: J18.9 - PNEUMONIA, UNSPECIFIED ORGANISM Status: Acute Qualifiers: Pneumonia type: due to unspecified organism - Patient Summary/Data Hospital Course: Admission diagnoses Dyspnea CAP CHF exacerbation suspected COPD exacerbation Significant anasarca Discharge diagnoses 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 He was placed on oxygen and started on treatment for heart failure along with COPD exacerbation and CAP which was noted on chest x-ray. It was noted that he had significant peripheral edema +3 pitting edema up to chest and abdomen. He has significant dyspnea. He was started on Lasix 40 mg twice daily which was then increased to 3 times daily for adequate diuresis. He did have an elevated troponin on arrival which remained flat likely a type II leak secondary to hypervolemia and ischemic demand. Echo was obtained which showed severe hypokinesis and EF of 25%. Also showed enlarged right ventricle. Along with some pulmonary hypertension. He was started on medications for atrial fibrillation he was noted intermittently to have atrial fibrillation a flutter. Due to his [id number] score being elevated above 2 he was started on Eliquis. He previously reports he was on Coumadin secondary to a blood clot. He verbalized understanding of Eliquis and the reasons this is started for stroke prevention. He was educated on monitoring for bleeding. Today he is feeling much improved he has been weaned off of oxygen. Solu-Medrol was decreased from 3 times daily to twice a day and he continues to feel improved. He continues to use his inhalers. Today he will be discharged home he does not want any follow-up within our facility or town as he is leaving and going to [place]. He is unsure of town and or facility he will be getting care from. Today he was shown his echo results and at length was educated on the needs of continued and very close follow-up for his heart failure along with compliance with medication. He was educated on the need for each medication and what this would do for heart failure. He will be started on LORETTA inhibitor for remodeling this was educated to them along with counseling on monitoring for adverse effects such as angioedema swelling of his lips and tongue. He will be maintained on Lasix 40 mg twice daily for peripheral edema he will continue on his statin. He was counseled that he will need further medications for his heart failure but these need to be slowly titrated on in accordance to his blood pressure. He will continue on the amlodipine as previously prescribed. He was counseled on monitoring his weight daily and taking extra Lasix 1 tab if weight were to increase by 3 to 5 pounds in 2 to 3 days. And then been in contact with PCP to prevent hospitalizations. He was counseled on fluid intake and told to take no more than 2 L of fluid daily. He was also consulted on DASH diet as well as monitoring salt. At times he appeared to understand fully the education that was being presented. Then other times he had knowledge deficits that were noted. Multiple education material were given on discharge to help with understanding of diagnoses. For his COPD he will be discharged home on prednisone taper. He was requesting a 30-day supply of this. He was educated that prednisone is not a long-term medication but he needs to be better maintained on inhalers as well as seeing pulmonology as an outpatient. He became very anxious and upset when this was discussed and felt as though we are withholding medications I discussed with him that I will send him home with a taper and that that should be sufficient for COPD exacerbation. I will also send him home on 2 more days of Levaquin 750 mg every 48 hours. During lengthy discussion, with both myself and Dr. Alan, regarding heart failure he was counseled that he is at very high risk of sudden cardiac arrest due to significant heart disease. He needs to be followed closely by cardiology and will need further evaluation for why heart failure is present. This could be related to his past cocaine use or possible CAD. Denies any history of angiogram. He was educated that he will need angiogram in the near future. - Patient Instructions Diet: Heart Healthy Diet Fluid Restriction: 2000 mL Activity: As Tolerated, No Strenuous Activities Showering/Bathing: May Shower Notify Provider of: Fever, Increased Pain, Swelling and Redness, Drainage, Nausea and/or Vomiting Other/Special Instructions: Weight yourself daily, keep a log. If you notice of weight change of 3 to 5 pounds in 2 to 3 days need to notify primary care. Take an extra Lasix tab day. Monitor salt intake less than 2 g daily would be preferred. Monitor blood pressure and heart rate. If swelling to legs or abdomen return along with chest pain or trouble breathing please seek emergency medical treatment promptly. - Discharge Plan *PRESCRIPTION DRUG MONITORING PROGRAM REVIEWED*: Not Applicable *COPY OF PRESCRIPTION DRUG MONITORING REPORT IN PATIENT DESTINY: Not Applicable Prescriptions/Med Rec: Albuterol/Ipratropium [DuoNeb 3.0-0.5 MG/3 ML] 3 ml NEB Q4HRRT PRN #1 box PRN Reason: Shortness Of Breath/wheezing Apixaban [Eliquis] 5 mg PO BID #60 tablet Furosemide [Lasix] 40 mg PO BID #60 tablet levoFLOXacin [Levaquin] 750 mg PO Q48H #2 tab lisinopriL [Lisinopril] 5 mg PO DAILY #30 tablet predniSONE [Prednisone] 10 - 40 mg PO DAILY #30 tab.ds.pk Home Medications: Home Meds Albuterol Sulfate [Proair Hfa] 8.5 gm IH QID PRN #1 hfa.aer.ad 08/18/18 [Rx] Aspirin 81 mg PO DAILY #30 tab.chew 03/15/20 [Rx] Fluticasone Propion/Salmeterol [Fluticasone-Salmeterol 250-50] 1 puff INH BID 05/05/20 [History] amLODIPine Besylate [Amlodipine Besylate] 5 mg PO DAILY 05/05/20 [History] atorvaSTATin Calcium [Atorvastatin Calcium] 40 mg PO DAILY 05/05/20 [History] guaiFENesin [Mucinex] 2 tab PO BID 05/05/20 [History] Albuterol [Proventil HFA] 2 puff INH Q4H PRN #1 inhaler 05/28/20 [Rx] Fluticasone Propionate [Flovent] 50 mcg IH BID #1 blst.w.dev 07/07/20 [Rx] Albuterol/Ipratropium [DuoNeb 3.0-0.5 MG/3 ML] 3 ml NEB Q4HRRT PRN #1 box 07/22/20 [Rx] Apixaban [Eliquis] 5 mg PO BID #60 tablet 07/22/20 [Rx] Furosemide [Lasix] 40 mg PO BID #60 tablet 07/22/20 [Rx] levoFLOXacin [Levaquin] 750 mg PO Q48H #2 tab 07/22/20 [Rx] lisinopriL [Lisinopril] 5 mg PO DAILY #30 tablet 07/22/20 [Rx] predniSONE [Prednisone] 10 - 40 mg PO DAILY #30 tab.ds.pk 07/22/20 [Rx] Oxygen Therapy Mode: Room Air Patient Handouts: Furosemide tablets, Heart Failure, Self Care, [id number], Heart Failure Action Plan, Lisinopril tablets, Heart Failure, Diagnosis, [id number], Living With Heart Failure, Heart Failure Medicines, Apixaban oral tablets, Heart Failure Eating Plan, Community-Acquired Pneumonia, Adult, [id number]-[id number] Referrals: Aniyah Fairchild MD [Resident] - 07/28/20 2:00 pm - Discharge Summary/Plan Comment DC Time >30 min.: Yes (Significant counseling and education regarding CHF) - Patient Data Vitals - Most Recent: Last Vital Signs Temp 97.5 F 07/22/20 11:30 Pulse 100 07/22/20 11:30 Resp 20 07/22/20 11:30 BP 120/90 07/22/20 11:30 Pulse Ox 94 L 07/22/20 11:30 Weight - Most Recent: 70.562 kg I&O - Last 24 hours: Intake & Output 07/21/20 07/22/20 07/22/20 22:59 06:59 14:59 Intake Total 780 750 Output Total 2150 1450 Balance -1370 -700 Lab Results - Last 24 hrs: Laboratory Results - last 24 hr 07/21/20 07/21/20 07/22/20 Range/Units 17:48 20:52 05:20 WBC 11.50 H (4.0-11.0) K/uL RBC 4.39 L (4.50-5.90) M/uL Hgb 14.0 (13.0-17.0) g/dL Hct 42.5 (38.0-50.0) % MCV 96.8 (80.0-98.0) fL MCH 31.9 (27.0-32.0) pg MCHC 32.9 (31.0-37.0) g/dL RDW Std Deviation 55.6 (28.0-62.0) fl RDW Coeff of Chuy 16 H (11.0-15.0) % Plt Count 205 (150-400) K/uL MPV 11.90 (7.40-12.00) fL Neut % (Auto) 94.4 H (48.0-80.0) % Lymph % (Auto) 3.0 L (16.0-40.0) % Union % (Auto) 2.5 (0.0-15.0) % Eos % (Auto) 0.1 (0.0-7.0) % Baso % (Auto) 0.0 (0.0-1.5) % Neut # (Auto) 10.9 H (1.4-5.7) K/uL Lymph # (Auto) 0.4 L (0.6-2.4) K/uL Union # (Auto) 0.3 (0.0-0.8) K/uL Eos # (Auto) 0.0 (0.0-0.7) K/uL Baso # (Auto) 0.0 (0.0-0.1) K/uL Nucleated RBC % 0.0 /100WBC Nucleated RBCs # 0 K/uL Sodium (136-148) mmol/L Potassium (3.5-5.1) mmol/L Chloride (98-107) mmol/L Carbon Dioxide (21.0-32.0) mmol/L BUN (7.0-18.0) mg/dL Creatinine (0.8-1.3) mg/dL Est Cr Clr Drug Dosing mL/min Estimated GFR (MDRD) ml/min Glucose (74-106) mg/dL POC Glucose 160 H 222 H (60-110) mg/dL Calcium (8.5-10.1) mg/dL Magnesium (1.8-2.4) mg/dL 07/22/20 07/22/20 07/22/20 Range/Units 05:20 06:19 11:25 WBC (4.0-11.0) K/uL RBC (4.50-5.90) M/uL Hgb (13.0-17.0) g/dL Hct (38.0-50.0) % MCV (80.0-98.0) fL MCH (27.0-32.0) pg MCHC (31.0-37.0) g/dL RDW Std Deviation (28.0-62.0) fl RDW Coeff of Chuy (11.0-15.0) % Plt Count (150-400) K/uL MPV (7.40-12.00) fL Neut % (Auto) (48.0-80.0) % Lymph % (Auto) (16.0-40.0) % Union % (Auto) (0.0-15.0) % Eos % (Auto) (0.0-7.0) % Baso % (Auto) (0.0-1.5) % Neut # (Auto) (1.4-5.7) K/uL Lymph # (Auto) (0.6-2.4) K/uL Union # (Auto) (0.0-0.8) K/uL Eos # (Auto) (0.0-0.7) K/uL Baso # (Auto) (0.0-0.1) K/uL Nucleated RBC % /100WBC Nucleated RBCs # K/uL Sodium 139 (136-148) mmol/L Potassium 4.3 (3.5-5.1) mmol/L Chloride 101 (98-107) mmol/L Carbon Dioxide 35.0 H (21.0-32.0) mmol/L BUN 36 H (7.0-18.0) mg/dL Creatinine 1.7 H (0.8-1.3) mg/dL Est Cr Clr Drug Dosing 48.60 mL/min Estimated GFR (MDRD) 49.9 ml/min Glucose 201 H (74-106) mg/dL POC Glucose 180 H 194 H (60-110) mg/dL Calcium 8.6 (8.5-10.1) mg/dL Magnesium 1.9 (1.8-2.4) mg/dL Med Orders - Current: Current Medications Albuterol/Ipratropium (Duoneb 3.0-0.5 Mg/3 Ml) 3 ml NEB Q4HRRT PRN PRN Reason: Shortness Of Breath/wheezing Last Admin: 07/22/20 09:03 Dose: 3 ml Documented by: Albuterol/Ipratropium (Combivent Respimat) 0 gm INH Q4H PRN PRN Reason: Dyspnea Last Admin: 07/21/20 00:14 Dose: 1 puff Documented by: Apixaban (Eliquis) 5 mg PO BID TONY Last Admin: 07/22/20 08:20 Dose: 5 mg Documented by: Aspirin (Aspirin) 81 mg PO DAILY [facility] Last Admin: 07/22/20 08:20 Dose: 81 mg Documented by: Atorvastatin Calcium (Lipitor) 40 mg PO DAILY [facility] Last Admin: 07/22/20 08:20 Dose: 40 mg Documented by: Dextrose/Water (Dextrose 50% In Water) 50 ml IV ASDIRECTED PRN PRN Reason: Hypoglycemia Furosemide (Lasix) 40 mg IVPUSH TID [facility] Last Admin: 07/22/20 06:53 Dose: 40 mg Documented by: Glucagon (Glucagen) 1 mg IM ASDIRECTED PRN PRN Reason: Hypoglycemia Ceftriaxone Sodium/Dextrose 1 (gm/ Premix) 50 mls @ 100 mls/hr IV Q24H [facility] Last Admin: 07/22/20 08:39 Dose: 100 mls/hr Documented by: Azithromycin 250 mg/ Sodium (Chloride) 250 mls @ 250 mls/hr IV Q24H [facility] Last Admin: 07/21/20 10:32 Dose: 250 mls/hr Documented by: Insulin Aspart (Novolog) 0 unit SUBCUT TIDAC [facility]; Protocol Last Admin: 07/22/20 08:35 Dose: 1 unit Documented by: Methylprednisolone Sodium Succinate (Solu-Medrol) 40 mg IVPUSH BID [facility] Last Admin: 07/22/20 08:40 Dose: 40 mg Documented by: Ondansetron HCl (Zofran) 4 mg IVPUSH Q4H PRN PRN Reason: Nausea/Vomiting Fluticasone/Salmeterol (Advair Diskus 250-50) 1 puff INH BID [facility] Last Admin: 07/22/20 09:16 Dose: 1 puff Documented by: Sodium Chloride (Saline Flush) 10 ml FLUSH ASDIRECTED PRN PRN Reason: Keep Vein Open Last Admin: 07/19/20 19:33 Dose: 10 ml Documented by: Sodium Chloride (Saline Flush) 2.5 ml FLUSH ASDIRECTED PRN PRN Reason: Keep Vein Open Last Admin: 07/19/20 19:33 Dose: 2.5 ml Documented by: Discontinued Medications Albuterol/Ipratropium (Duoneb 3.0-0.5 Mg/3 Ml) 3 ml NEB ONETIME ONE Stop: 07/19/20 17:29 Last Admin: 07/19/20 17:40 Dose: 3 ml Documented by: Aspirin (Aspirin) 325 mg PO ONETIME ONE Stop: 07/19/20 21:06 Last Admin: 07/19/20 22:45 Dose: 325 mg Documented by: Azithromycin (Zithromax) 500 mg PO Q24H ONE Stop: 07/19/20 19:23 Last Admin: 07/19/20 19:32 Dose: 500 mg Documented by: Diltiazem HCl (Diltiazem) 20 mg IVPUSH ONETIME ONE Stop: 07/20/20 00:40 Last Admin: 07/20/20 01:21 Dose: 20 mg Documented by: Enoxaparin Sodium (Lovenox) 40 mg SUBCUT Q24H [facility] Last Admin: 07/19/20 22:44 Dose: 40 mg Documented by: Enoxaparin Sodium (Lovenox) 90 mg 1 mg/kg (90 mg) SUBCUT Q12H [facility] Last Admin: 07/21/20 13:00 Dose: Not Given Documented by: Enoxaparin Sodium (Lovenox) 50 mg SUBCUT ONETIME ONE Stop: 07/19/20 23:59 Last Admin: 07/20/20 00:30 Dose: 50 mg Documented by: Furosemide (Lasix) 40 mg IVPUSH NOW ONE Stop: 07/19/20 18:15 Last Admin: 07/19/20 18:50 Dose: 40 mg Documented by: Furosemide (Lasix) 40 mg IVPUSH BID TONY Last Admin: 07/20/20 09:01 Dose: 40 mg Documented by: Furosemide (Lasix) 40 mg IVPUSH BIDDIURETIC TONY Ceftriaxone Sodium/Dextrose 1 (gm/ Premix) 50 mls @ 100 mls/hr IV ONETIME ONE Stop: 07/19/20 19:52 Last Admin: 07/19/20 19:32 Dose: 100 mls/hr Documented by: Ceftriaxone Sodium 1 gm/ (Sodium Chloride) 50 mls @ 100 mls/hr IV Q24H TONY Magnesium Sulfate (Magnesium Sulfate In Water Premix) 4 gm in 100 mls @ 50 mls/hr IV ONETIME ONE Stop: 07/20/20 01:34 Last Admin: 07/20/20 00:24 Dose: 50 mls/hr Documented by: Magnesium Sulfate (Magnesium Sulfate In Water Premix) Confirm Administered Dose 100 mls @ as directed .ROUTE .STK-MED ONE Stop: 07/20/20 00:23 Last Admin: 07/20/20 00:27 Dose: Not Given Documented by: Azithromycin 250 mg/ Sodium (Chloride) 250 mls @ 250 mls/hr IV Q24H [facility] Last Admin: 07/21/20 13:00 Dose: Not Given Documented by: Methylprednisolone Sodium Succinate (Solu-Medrol) 40 mg IVPUSH Q8H [facility] Last Admin: 07/21/20 09:24 Dose: 40 mg Documented by:
[2020-07-22] MEDS: Azithromycin 250 MG in Sodium Chloride 0.9% 250 ML IV SCH (12:45)
== END 2020-07-22 13:05 | disposition home or self-care (01) ==
LOC: MW.ED 17:16 → MW.MS 20:22
PROVIDERS: ADMIT Student in an Organized Health Care Education/Training Program; ATTEND Student in an Organized Health Care Education/Training Program
DX: I11.0 Hypertensive heart disease with heart failure (principal); I50.40 Unspecified combined systolic (congestive) and diastolic (congestive) heart failure; R74.01 Elevation of levels of liver transaminase levels; J44.1 Chronic obstructive pulmonary disease with (acute) exacerbation; J44.0 Chronic obstructive pulmonary disease with (acute) lower respiratory infection; Z20.828 Contact with and (suspected) exposure to other viral communicable diseases; J18.9 Pneumonia, unspecified organism; R77.8 Other specified abnormalities of plasma proteins; I48.91 Unspecified atrial fibrillation; F17.210 Nicotine dependence, cigarettes, uncomplicated; R60.1 Generalized edema; E78.5 Hyperlipidemia, unspecified; F14.10 Cocaine abuse, uncomplicated; E83.42 Hypomagnesemia; Z79.82 Long term (current) use of aspirin; Z79.899 Other long term (current) drug therapy
CPT/HCPCS: 36415; 71045; 80048; 80053; 80061; 80305; 82962; 83036; 83735; 83880; 84100; 84443; 84484; 85025; 87635; 93005; 93306; 94640; 96365; 96366; 96367; 96372; 96375; 96376; 99285; A9270; G0378; J0456; J0696; J1650; J1815; J1940; J2920; J3475; J3490; J7050; 93010; 99284; J7620-GY; U0002

== ENCOUNTER 2020-08-29 13:10 | Emergency (ER) | payer SELFPAY ==
[2020-08-29] MEDS ORDERED: Furosemide 40 MG/4 ML VIAL IVPUSH ONE (13:24)
[2020-08-29] MEDS ORDERED: Nitroglycerin 0.4 MG Tab.SL SL ONE (13:24)
[2020-08-29] MEDS ORDERED: Albuterol/Ipratropium 4 GM Inhalation Spray INH STA (13:25)
--- NOTE | 2020-08-29 13:30 | EDM.PDOC ---
ED HPI GENERAL MEDICAL PROBLEM - General Chief Complaint: Chest Pain Stated Complaint: CHEST PAIN Time Seen by Provider: 08/29/20 13:27 Source of Information: Reports: Patient History Limitations: Reports: No Limitations - History of Present Illness INITIAL COMMENTS - FREE TEXT/NARRATIVE: Is a 59-year-old male history of high blood pressure PE COPD and CHF who presents today for shortness of breath. Patient states that he was out of town in [place] when the symptoms started 2 days ago. Patient states that he was short of breath and felt a pressure-like sensation in his chest. Patient states that whenever he ambulates or lays flat he has more difficulty breathing. Patient denies cough fevers chills abdominal pain. Patient also reports more increased swelling to his lower extremities. Patient states that he still taking his current taper for prednisone. chest pain Pain Score (Numeric/FACES): 8 - Related Data Allergies Allergy/AdvReac Type Severity Reaction Status Date / Time No Known Allergies Allergy Verified 08/29/20 13:23 Home Meds: Home Meds Albuterol Sulfate [Proair Hfa] 8.5 gm IH QID PRN #1 hfa.aer.ad 08/18/18 [Rx] Aspirin 81 mg PO DAILY #30 tab.chew 03/15/20 [Rx] Fluticasone Propion/Salmeterol [Fluticasone-Salmeterol 250-50] 1 puff INH BID 05/05/20 [History] amLODIPine Besylate [Amlodipine Besylate] 5 mg PO DAILY 05/05/20 [History] atorvaSTATin Calcium [Atorvastatin Calcium] 40 mg PO DAILY 05/05/20 [History] guaiFENesin [Mucinex] 2 tab PO BID 05/05/20 [History] Albuterol [Proventil HFA] 2 puff INH Q4H PRN #1 inhaler 05/28/20 [Rx] Fluticasone Propionate [Flovent] 50 mcg IH BID #1 blst.w.dev 07/07/20 [Rx] Albuterol/Ipratropium [DuoNeb 3.0-0.5 MG/3 ML] 3 ml NEB Q4HRRT PRN #1 box 07/22/20 [Rx] Apixaban [Eliquis] 5 mg PO BID #60 tablet 07/22/20 [Rx] Furosemide [Lasix] 40 mg PO BID #60 tablet 07/22/20 [Rx] levoFLOXacin [Levaquin] 750 mg PO Q48H #2 tab 07/22/20 [Rx] lisinopriL [Lisinopril] 5 mg PO DAILY #30 tablet 07/22/20 [Rx] predniSONE [Prednisone] 10 - 40 mg PO DAILY #30 tab.ds.pk 07/22/20 [Rx] Past Medical History HEENT History: Reports: Other (See Below) Other HEENT History: wears glasses, has top partial dental implants Cardiovascular History: Reports: High Cholesterol, Hypertension, Other (See Below) Other Cardiovascular History: per pt report he was told by the doctor that he had a "mild heart attack" in 2018. per pt report he also had a history of blood clots in the legs Respiratory History: Reports: Asthma, COPD, SOB Gastrointestinal History: Reports: Colon Polyp, Other (See Below) Other Gastrointestinal History: states occasional reflux Genitourinary History: Reports: None Musculoskeletal History: Reports: None Neurological History: Reports: None Psychiatric History: Reports: None Endocrine/Metabolic History: Reports: None Hematologic History: Reports: None Immunologic History: Reports: None Oncologic (Cancer) History: Reports: None Dermatologic History: Reports: Psoriasis - Infectious Disease History Infectious Disease History: Reports: None - Past Surgical History Head Surgeries/Procedures: Reports: None HEENT Surgical History: Reports: None Cardiovascular Surgical History: Reports: None Respiratory Surgical History: Reports: None GI Surgical History: Reports: Colonoscopy Male Surgical History: Reports: None Endocrine Surgical History: Reports: None Neurological Surgical History: Reports: None Musculoskeletal Surgical History: Reports: None Oncologic Surgical History: Reports: None Dermatological Surgical History: Reports: None Social & Family History - Family History Family Medical History: No Pertinent Family History - Caffeine Use Caffeine Use: Reports: None ED ROS GENERAL - Review of Systems Review Of Systems: See Below Constitutional: Reports: No Symptoms HEENT: Reports: No Symptoms Respiratory: Reports: Shortness of Breath, Wheezing Cardiovascular: Reports: Chest Pain, Edema Endocrine: Reports: No Symptoms GI/Abdominal: Reports: No Symptoms : Reports: No Symptoms Musculoskeletal: Reports: No Symptoms Skin: Reports: No Symptoms Neurological: Reports: No Symptoms Psychiatric: Reports: No Symptoms Hematologic/Lymphatic: Reports: No Symptoms Immunologic: Reports: No Symptoms ED EXAM, GENERAL - Physical Exam Exam: See Below Exam Limited By: No Limitations General Appearance: Alert, WD/WN Head: Atraumatic Respiratory/Chest: No Respiratory Distress, Rhonchi, Wheezing. No: Chest Non- Tender Cardiovascular: Regular Rate, Rhythm, No Edema GI/Abdominal: Normal Bowel Sounds, Soft, Non-Tender Extremities: Normal Range of Motion Neurological: Alert, Oriented, CN II-XII Intact, Normal Cognition #1 Interpretation EKG Date: 08/29/20 Time: 13:13 Rhythm: NSR Rate (Beats/Min): 107 [place]: Normal QRS: RBBB Course - Vital Signs Last Recorded V/S: Last Vital Signs Temp 95.8 F L 08/29/20 13:10 Pulse 100 08/29/20 13:35 Resp 24 H 08/29/20 13:35 BP 132/94 H 08/29/20 13:33 Pulse Ox 94 L 08/29/20 13:35 - Orders/Labs/Meds Orders: Active Orders 24 hr Category Date Time Status EKG Documentation Completion [RC] STAT Care 08/29/20 14:32 Active RT Post Treatment Assessment [RC] Click to Edit Care 08/29/20 13:26 Active RT Pre-Treatment Assessment [RC] Click to Edit Care 08/29/20 13:26 Active CORONAVIRUS COVID-19 SCOTT [MOLEC] Stat Lab 08/29/20 14:40 Received PTT,PARTIAL THROMBOPLSTIN TIME [COAG] Q6H Lab 08/29/20 15:30 Ordered PTT,PARTIAL THROMBOPLSTIN TIME [COAG] Q6 Lab 08/29/20 21:30 Ordered PTT,PARTIAL THROMBOPLSTIN TIME [COAG] Q6 Lab 08/30/20 03:30 Ordered PTT,PARTIAL THROMBOPLSTIN TIME [COAG] Q6H Lab 08/30/20 09:30 Ordered PTT,PARTIAL THROMBOPLSTIN TIME [COAG] Q6H Lab 08/30/20 15:30 Ordered PTT,PARTIAL THROMBOPLSTIN TIME [COAG] Q6 Lab 08/30/20 21:30 Ordered PTT,PARTIAL THROMBOPLSTIN TIME [COAG] Q6H Lab 08/31/20 03:30 Ordered PTT,PARTIAL THROMBOPLSTIN TIME [COAG] Stat Lab 08/29/20 15:17 Ordered Heparin Sodium/0.45% NaCl [Heparin 25,000 Units in 2 Med 08/29/20 15:30 Ordered NS 500 ML] 500 ml IV TITRATE Magnesium Sulfate/Water [Magnesium Sulfate in Water Med 08/29/20 15:00 Active Premix] 1 gm in 25 ml IV ONETIME Medication Orders Magnesium Sulfate (Magnesium Sulfate In Water Premix) 1 gm in 25 mls @ 25 mls/hr IV ONETIME ONE Stop: 08/29/20 15:59 Heparin Sodium/Sodium Chloride (Heparin 25,000 Units In 1/2 Ns 500 Ml) 500 mls @ 19.377 mls/hr IV TITRATE TONY; Protocol Labs: Laboratory Tests 08/29/20 08/29/20 08/29/20 Range/Units 13:30 13:30 13:30 WBC 8.71 (4.0-11.0) K/uL RBC 4.43 L (4.50-5.90) M/uL Hgb 14.0 (13.0-17.0) g/dL Hct 42.3 (38.0-50.0) % MCV 95.5 (80.0-98.0) fL MCH 31.6 (27.0-32.0) pg MCHC 33.1 (31.0-37.0) g/dL RDW Std Deviation 53.1 (28.0-62.0) fl RDW Coeff of Chuy 15 (11.0-15.0) % Plt Count 225 (150-400) K/uL MPV 10.30 (7.40-12.00) fL Neut % (Auto) 89.3 H (48.0-80.0) % Lymph % (Auto) 6.2 L (16.0-40.0) % [place] % (Auto) 4.5 (0.0-15.0) % Eos % (Auto) 0.0 (0.0-7.0) % Baso % (Auto) 0.0 (0.0-1.5) % Neut # (Auto) 7.8 H (1.4-5.7) K/uL Lymph # (Auto) 0.5 L (0.6-2.4) K/uL [place] # (Auto) 0.4 (0.0-0.8) K/uL Eos # (Auto) 0.0 (0.0-0.7) K/uL Baso # (Auto) 0.0 (0.0-0.1) K/uL Nucleated RBC % 0.0 /100WBC Nucleated RBCs # 0 K/uL INR APTT (18.6-31.3) SEC Sodium 141 (136-148) mmol/L Potassium 3.9 (3.5-5.1) mmol/L Chloride 102 (98-107) mmol/L Carbon Dioxide 29.3 (21.0-32.0) mmol/L BUN 36 H (7.0-18.0) mg/dL Creatinine 1.4 H (0.8-1.3) mg/dL Est Cr Clr Drug Dosing 59.01 mL/min Estimated GFR (MDRD) > 60.0 ml/min Glucose 94 (74-106) mg/dL Calcium 8.5 (8.5-10.1) mg/dL Phosphorus 3.1 (2.6-4.7) mg/dL Magnesium 1.5 L (1.8-2.4) mg/dL Total Bilirubin 0.3 (0.2-1.0) mg/dL AST 37 (15-37) IU/L ALT 152 H (14-63) IU/L Alkaline Phosphatase 69 (46-116) U/L Troponin I 0.059 H* (0.000-0.056) ng/mL B-Natriuretic Peptide 1969 H (<100) PG/ML Total Protein 6.7 (6.4-8.2) g/dL Albumin 3.3 L (3.4-5.0) g/dL Globulin 3.4 (2.6-4.0) g/dL Albumin/Globulin Ratio 1.0 (0.9-1.6) Lipase 105 (73-393) U/L 08/29/20 Range/Units 13:30 WBC (4.0-11.0) K/uL RBC (4.50-5.90) M/uL Hgb (13.0-17.0) g/dL Hct (38.0-50.0) % MCV (80.0-98.0) fL MCH (27.0-32.0) pg MCHC (31.0-37.0) g/dL RDW Std Deviation (28.0-62.0) fl RDW Coeff of Chuy (11.0-15.0) % Plt Count (150-400) K/uL MPV (7.40-12.00) fL Neut % (Auto) (48.0-80.0) % Lymph % (Auto) (16.0-40.0) % [place] % (Auto) (0.0-15.0) % Eos % (Auto) (0.0-7.0) % Baso % (Auto) (0.0-1.5) % Neut # (Auto) (1.4-5.7) K/uL Lymph # (Auto) (0.6-2.4) K/uL [place] # (Auto) (0.0-0.8) K/uL Eos # (Auto) (0.0-0.7) K/uL Baso # (Auto) (0.0-0.1) K/uL Nucleated RBC % /100WBC Nucleated RBCs # K/uL INR 1.22 APTT 24.4 (18.6-31.3) SEC Sodium (136-148) mmol/L Potassium (3.5-5.1) mmol/L Chloride (98-107) mmol/L Carbon Dioxide (21.0-32.0) mmol/L BUN (7.0-18.0) mg/dL Creatinine (0.8-1.3) mg/dL Est Cr Clr Drug Dosing mL/min Estimated GFR (MDRD) ml/min Glucose (74-106) mg/dL Calcium (8.5-10.1) mg/dL Phosphorus (2.6-4.7) mg/dL Magnesium (1.8-2.4) mg/dL Total Bilirubin (0.2-1.0) mg/dL AST (15-37) IU/L ALT (14-63) IU/L Alkaline Phosphatase (46-116) U/L Troponin I (0.000-0.056) ng/mL B-Natriuretic Peptide (<100) PG/ML Total Protein (6.4-8.2) g/dL Albumin (3.4-5.0) g/dL Globulin (2.6-4.0) g/dL Albumin/Globulin Ratio (0.9-1.6) Lipase (73-393) U/L Meds: Medications Generic Name Dose Route Start Last Admin Trade Name Halima PRN Reason Stop Dose Admin Magnesium Sulfate 1 gm in 25 mls @ 25 mls/hr 08/29/20 15:00 Magnesium Sulfate In Water Premix IV 08/29/20 15:59 ONETIME ONE Heparin Sodium/Sodium Chloride 500 mls @ 19.377 mls/hr 08/29/20 15:30 Heparin 25,000 Units In 1/2 Ns 500 Ml IV TITRATE TONY Protocol 12 UNITS/KG/HR Discontinued Medications Generic Name Dose Route Start Last Admin Trade Name Halima PRN Reason Stop Dose Admin Albuterol/Ipratropium 1 gm 08/29/20 13:25 08/29/20 13:47 Combivent Respimat INH 08/29/20 13:26 1 gm NOW STA Administration Furosemide 40 mg 08/29/20 13:24 08/29/20 13:33 Lasix IVPUSH 08/29/20 13:25 40 mg NOW ONE Administration Heparin Sodium (Porcine) 4,000 units 08/29/20 15:16 Heparin Sodium IVPUSH 08/29/20 15:17 .BOLUS ONE Nitroglycerin 0.4 mg 08/29/20 13:24 08/29/20 13:33 Nitrostat SL 08/29/20 13:25 0.4 mg ONETIME ONE Administration - Re-Assessments/Exams Free Text/Narrative Re-Assessment/Exam: 08/29/20 15:20 Has elevated troponin currently having chest pain. We spoke to the hospital here believe that we will be beneficial for patient to be transferred as he may need a cath. Call [facility] spoke to the ER physician Dr. Santana he has a separate patient will be started on heparin. Departure - Departure Time of Disposition: 15:18 Disposition: DC/Tfer to Acute Hospital 02 Condition: Good Clinical Impression: NSTEMI (non-ST elevated myocardial infarction) - Discharge Information *PRESCRIPTION DRUG MONITORING PROGRAM REVIEWED*: Not Applicable *COPY OF PRESCRIPTION DRUG MONITORING REPORT IN PATIENT DESTINY: Not Applicable Referrals: PCP,None [Primary Care Provider] - Forms: ED Department Discharge Critical Care Note - Critical Care Note Total Time (mins): 40 Comments: Critical Care Procedure Note Authorized and Performed by: Dr. Burroughs Total critical care time: Approximately Due to a high probability of clinically significant, life threatening deterioration, the patient required my highest level of preparedness to intervene emergently and I personally spent this critical care time directly and personally managing the patient. This critical care time included obtaining a history; examining the patient; pulse oximetry; ordering and review of studies; arranging urgent treatment with development of a management plan; evaluation of patient's response to treatment; frequent reassessment; and, discussions with other providers. This critical care time was performed to assess and manage the high probability of imminent, life-threatening deterioration that could result in multi-organ failure. It was exclusive of separately billable procedures and treating other patients and teaching time. Sepsis Event Note (ED) - Evaluation Sepsis Screening Result: No Definite Risk - Focused Exam Vital Signs: Vital Signs Temp Pulse Resp BP BP Pulse Ox 08/29/20 13:35 100 24 H 94 L 08/29/20 13:33 132/94 H 08/29/20 13:10 95.8 F L 108 H 24 H 132/94 H 92 L - My Orders Last 24 Hours: My Active Orders 08/29/20 13:26 RT Post Treatment Assessment [RC] Click to Edit RT Pre-Treatment Assessment [RC] Click to Edit 08/29/20 14:32 EKG Documentation Completion [RC] STAT 08/29/20 14:40 CORONAVIRUS COVID-19 SCOTT [MOLEC] Stat 08/29/20 15:00 Magnesium Sulfate/Water [Magnesium Sulfate in Water Premix] 1 gm in 25 ml IV ONETIME 08/29/20 15:17 PTT,PARTIAL THROMBOPLSTIN TIME [COAG] Stat 08/29/20 15:30 PTT,PARTIAL THROMBOPLSTIN TIME [COAG] Q6H Heparin Sodium/0.45% NaCl [Heparin 25,000 Units in 1/2 NS 500 ML] 500 ml IV TITRATE 08/29/20 21:30 PTT,PARTIAL THROMBOPLSTIN TIME [COAG] Q6H 08/30/20 03:30 PTT,PARTIAL THROMBOPLSTIN TIME [COAG] Q6H 08/30/20 09:30 PTT,PARTIAL THROMBOPLSTIN TIME [COAG] Q6H 08/30/20 15:30 PTT,PARTIAL THROMBOPLSTIN TIME [COAG] Q6H 08/30/20 21:30 PTT,PARTIAL THROMBOPLSTIN TIME [COAG] Q6H 08/31/20 03:30 PTT,PARTIAL THROMBOPLSTIN TIME [COAG] Q6H - Assessment/Plan Last 24 Hours: My Active Orders 08/29/20 13:26 RT Post Treatment Assessment [RC] Click to Edit RT Pre-Treatment Assessment [RC] Click to Edit 08/29/20 14:32 EKG Documentation Completion [RC] STAT 08/29/20 14:40 CORONAVIRUS COVID-19 SCOTT [MOLEC] Stat 08/29/20 15:00 Magnesium Sulfate/Water [Magnesium Sulfate in Water Premix] 1 gm in 25 ml IV ONETIME 08/29/20 15:17 PTT,PARTIAL THROMBOPLSTIN TIME [COAG] Stat 08/29/20 15:30 PTT,PARTIAL THROMBOPLSTIN TIME [COAG] Q6H Heparin Sodium/0.45% NaCl [Heparin 25,000 Units in 1/2 NS 500 ML] 500 ml IV TITRATE 08/29/20 21:30 PTT,PARTIAL THROMBOPLSTIN TIME [COAG] Q6H 08/30/20 03:30 PTT,PARTIAL THROMBOPLSTIN TIME [COAG] Q6H 08/30/20 09:30 PTT,PARTIAL THROMBOPLSTIN TIME [COAG] Q6H 08/30/20 15:30 PTT,PARTIAL THROMBOPLSTIN TIME [COAG] Q6H 08/30/20 21:30 PTT,PARTIAL THROMBOPLSTIN TIME [COAG] Q6H 08/31/20 03:30 PTT,PARTIAL THROMBOPLSTIN TIME [COAG] Q6H Assessment:: Is a 59-year-old male who presents today for shortness of breath and chest pain. Patient has wheezing and rhonchi on examination. Patient could either be having a COPD exacerbation or CHF exacerbation. Will be given nitro nebulizers will obtain x-ray and labs and reassess.
--- NOTE | 2020-08-29 13:52 | CR ---
INDICATION: Chest pain, shortness of breath, COPD, CHF TECHNIQUE: Chest 1 view. COMPARISON: 07/11/2020 FINDINGS: Cardiovascular and mediastinum: Cardiomegaly without congestive changes. Mediastinum is within normal limits. Lungs and pleural space: Lungs are clear. No sign of infiltrate or mass. No sign of pleural effusion. No pneumothorax. Bones and soft tissues: No significant findings. IMPRESSION: No acute pulmonary or cardiac abnormalities. Mild cardiomegaly without congestive changes. Dictated by Rahul Arora MD @ Aug 29 2020 1:51PM Signed by Dr. Rahul Arora @ Aug 29 2020 1:51PM
[2020-08-29 14:01] LABS: BLOOD UREA NITROGEN,BUN 36 mg/dL (7.0-18.0); CARBON DIOXIDE,CO2 29.3 mmol/L (21.0-32.0); CHLORIDE,CL 102 mmol/L (98-107); GLUCOSE RANDOM 94 mg/dL (74-106); LIPASE 105 U/L (73-393); POTASSIUM,K 3.9 mmol/L (3.5-5.1); SODIUM,NA 141 mmol/L (136-148)
[2020-08-29] MEDS ORDERED: Magnesium Sulfate (4.06 MEQ/ML) 5 GM/10 ML SDV IV STA (14:54)
[2020-08-29] MEDS ORDERED: Magnesium Sulfate/Water 1 GM/25 ML BAG IV ONE (15:00)
[2020-08-29] MEDS ORDERED: Heparin Sodium 5,000 Units/ML Vial IVPUSH ONE (15:16)
[2020-08-29] MEDS ORDERED: Heparin Sodium/0.45% NaCl 500 ML IV SCH (15:30)
== END 2020-08-29 16:15 ==
LOC: MW.ED 13:10
DX: I21.4 Non-ST elevation (NSTEMI) myocardial infarction (principal); E78.00 Pure hypercholesterolemia, unspecified; J44.9 Chronic obstructive pulmonary disease, unspecified; I11.0 Hypertensive heart disease with heart failure; I50.9 Heart failure, unspecified; Z79.82 Long term (current) use of aspirin; Z79.899 Other long term (current) drug therapy; Z79.01 Long term (current) use of anticoagulants; Z86.711 Personal history of pulmonary embolism; Z20.822 Contact with and (suspected) exposure to COVID-19
CPT/HCPCS: 36415; 71045; 80053; 83690; 83735; 83880; 84100; 84484; 85025; 85610; 85730; 87635; 93005; 96365; 96368; 96375; 99285; A9270; J1644; J1940; J3475; 93010; 99291; U0002